=== PATIENT | male | born 1955 | race Caucasian/White ===

== ENCOUNTER → 2017-03-15 | Outpatient (CLI) | payer OTHER ==
[~2017-03-15] MED LIST: ALBU90OI INH; AMLO10 PO; BUSP10 PO; CIPR500 PO; CLON.2 PO; COMBIVENT RESPIM4 GM INH; Capsaicin60 GM TOP; Citalopram HBr40 MG PO; DICLOFENAC SOD100 G1 TOP; DULERA 100 MCG/13 GM INH; HYDACE5 PO; HYDCHL25 PO; Hair, Skin & N1 EACH PO; IBUP400 PO; IBUP600 PO; LISI20 PO; MELO7.5 PO; METO50 PO; MIRT30 PO; NAPR500ERA PO; NICO21TP TOP; PANT40 PO; PRAZ1 PO; PRED10 PO; PRED20 PO; Prinivil10 MG PO; TUDORZA PRESS400 MCG INH; ZESTORETIC 20-121 EA PO
== END | disposition home or self-care (01) ==
LOC: LAB SHORT 13:33 → LAB 13:33
DX: L02.91 Cutaneous abscess, unspecified (principal)
CPT/HCPCS: 87070; 87075; 87076; 87185; 87205

== ENCOUNTER 2017-05-27 17:55 | Inpatient (IN) | payer OTHER ==
[~2017-05-27] VITALS: Ht 182.9 cm; Wt 93.0 kg
[~2017-05-27 17:55] MED LIST changes: -ALBU90OI INH; -AMLO10 PO; -BUSP10 PO; -CLON.2 PO; -COMBIVENT RESPIM4 GM INH; -Capsaicin60 GM TOP; -Citalopram HBr40 MG PO; -DICLOFENAC SOD100 G1 TOP; -DULERA 100 MCG/13 GM INH; -HYDCHL25 PO; -Hair, Skin & N1 EACH PO; -IBUP400 PO; -IBUP600 PO; -LISI20 PO; -MELO7.5 PO; -METO50 PO; -MIRT30 PO; -NAPR500ERA PO; -NICO21TP TOP; -PANT40 PO; -PRAZ1 PO; -PRED10 PO; -PRED20 PO; -Prinivil10 MG PO; -TUDORZA PRESS400 MCG INH; -ZESTORETIC 20-121 EA PO
[2017-05-27] MEDS ORDERED: TUDORZA PRESS400 MCG INH (18:09)
[2017-05-27] MEDS ORDERED: Citalopram HBr40 MG PO (18:09)
[2017-05-27] MEDS ORDERED: BUSP10 PO (18:09)
[2017-05-27] MEDS ORDERED: DICLOFENAC SOD100 G1 TOP (18:10)
[2017-05-27] MEDS ORDERED: MELO7.5 PO (18:10)
[2017-05-27] MEDS ORDERED: ZESTORETIC 20-121 EA PO (18:10)
[2017-05-27 18:42] LABS: BASOPHILS ABSOLUTE AUTO 0.05 K/mm3 (0.00-0.23); BASOPHILS PERCENT AUTO 1 % (0-2); EOSINOPHILS ABSOLUTE AUTO 0.09 K/mm3 (0.00-0.68); EOSINOPHILS PERCENT AUTO 1 % (0-6); Hematocrit 41.7 % (37.0-53.0); Hemoglobin 14.4 g/dL (13.5-17.5); IMMATURE GRAN ABSOLUTE AUTO 0.04 K/mm3 (0.00-0.10); IMMATURE GRAN PERCENT AUTO 1 % (0-1); LYMPHOCYTES PERCENT AUTO 12 % (21-46); MONOCYTES ABSOLUTE AUTO 1.04 K/mm3 (0.16-1.47); MONOCYTES PERCENT AUTO 12 % (4-13); Mean Corpuscular HGB 31.3 pg (26.0-34.0); Mean Corpuscular HGB Conc 34.5 g/dL (31.5-36.5); Mean Corpuscular Volume 91 fL (80-100); Mean Platelet Volume 8.8 fL (9.1-12.4); NEUTROPHILS ABSOLUTE AUTO 6.27 K/mm3 (1.96-9.15); NEUTROPHILS PERCENT AUTO 74 % (41-73); Platelet Count 292 K/mm3 (150-400); RDW Coefficient Variation 11.5 % (11.7-14.2); White Blood Cell Count 8.49 K/mm3 (4.00-11.30)
[2017-05-27 18:57] LABS: Troponin I 0.037 ng/mL (0.000-0.040)
[2017-05-27 19:06] LABS: Alanine Aminotransfer (ALT/SGP 184 U/L (12-78); Albumin, Blood 3.4 g/dL (3.4-5.0); Albumin/Globulin Ratio 1.1 (0.8-1.8); Alk Phos 101 U/L (50-136); Anion Gap 9 mmol/L (6-16); Aspartate Aminotrans (AST/SGOT 134 U/L (12-37); Bilirubin, Total 0.6 mg/dL (0.1-1.0); Blood Urea Nitrogen 11 mg/dL (8-24); Bun/Creatinine Ratio 16.6 (12.0-20.0); CO2, Blood 29 mmol/L (21-32); Calcium, Blood 7.9 mg/dL (8.5-10.1); Chloride, Blood 80 mmol/L (98-108); Creatinine, Blood 0.66 mg/dL (0.60-1.20); Glomerular Filtration Rate >60 (60-); Glucose, Blood 87 mg/dL (70-99); Potassium, Blood 4.1 mmol/L (3.5-5.5); Sodium, Blood 118 mmol/L (136-145); Total Protein, Blood 6.4 g/dL (6.4-8.2)
[2017-05-27 19:32] LABS: PCO2 Arterial 50.5 mmHg (35-45); pH Blood Arterial 7.44 (7.35-7.45)
[2017-05-27 19:33] LABS: Ethanol (Alcohol), Blood, Med 22 mg/dL
[2017-05-28 01:04] LABS: Anion Gap 4 mmol/L (6-16); Blood Urea Nitrogen 13 mg/dL (8-24); Bun/Creatinine Ratio 19.8 (12.0-20.0); CO2, Blood 35 mmol/L (21-32); Calcium, Blood 8.1 mg/dL (8.5-10.1); Chloride, Blood 82 mmol/L (98-108); Creatinine, Blood 0.66 mg/dL (0.60-1.20); Glomerular Filtration Rate >60 (60-); Glucose, Blood 93 mg/dL (70-99); Potassium, Blood 4.3 mmol/L (3.5-5.5); Sodium, Blood 121 mmol/L (136-145)
[2017-05-28 05:45] LABS: Anion Gap 5 mmol/L (6-16); Blood Urea Nitrogen 13 mg/dL (8-24); Bun/Creatinine Ratio 22.8 (12.0-20.0); CO2, Blood 33 mmol/L (21-32); Calcium, Blood 8.1 mg/dL (8.5-10.1); Chloride, Blood 82 mmol/L (98-108); Creatinine, Blood 0.57 mg/dL (0.60-1.20); Glomerular Filtration Rate >60 (60-); Glucose, Blood 138 mg/dL (70-99); Magnesium, Blood 1.9 mg/dL (1.6-2.4); Potassium, Blood 3.9 mmol/L (3.5-5.5); Sodium, Blood 120 mmol/L (136-145)
[2017-05-28 13:25] LABS: Anion Gap 6 mmol/L (6-16); Blood Urea Nitrogen 10 mg/dL (8-24); Bun/Creatinine Ratio 16.6 (12.0-20.0); CO2, Blood 33 mmol/L (21-32); Calcium, Blood 8.6 mg/dL (8.5-10.1); Chloride, Blood 80 mmol/L (98-108); Glomerular Filtration Rate >60 (60-); Glucose, Blood 115 mg/dL (70-99); Potassium, Blood 4.1 mmol/L (3.5-5.5); Sodium, Blood 119 mmol/L (136-145)
[2017-05-28 19:07] LABS: Anion Gap 9 mmol/L (6-16); Blood Urea Nitrogen 12 mg/dL (8-24); Bun/Creatinine Ratio 16.6 (12.0-20.0); CO2, Blood 33 mmol/L (21-32); Calcium, Blood 8.8 mg/dL (8.5-10.1); Chloride, Blood 78 mmol/L (98-108); Creatinine, Blood 0.72 mg/dL (0.60-1.20); Glomerular Filtration Rate >60 (60-); Glucose, Blood 214 mg/dL (70-99); Potassium, Blood 4.1 mmol/L (3.5-5.5); Sodium, Blood 120 mmol/L (136-145)
[2017-05-29 05:09] LABS: Anion Gap 5 mmol/L (6-16); Blood Urea Nitrogen 14 mg/dL (8-24); Bun/Creatinine Ratio 19.5 (12.0-20.0); CO2, Blood 37 mmol/L (21-32); Calcium, Blood 8.7 mg/dL (8.5-10.1); Chloride, Blood 82 mmol/L (98-108); Creatinine, Blood 0.72 mg/dL (0.60-1.20); Glomerular Filtration Rate >60 (60-); Glucose, Blood 111 mg/dL (70-99); Potassium, Blood 3.9 mmol/L (3.5-5.5); Sodium, Blood 124 mmol/L (136-145)
[2017-05-29] MEDS ORDERED: AMLO10 PO (10:22)
[2017-05-29] MEDS ORDERED: CLON.2 PO (10:23)
[2017-05-29] MEDS ORDERED: LISI20 PO (10:24)
[2017-05-29] MEDS ORDERED: Hair, Skin & N1 EACH PO (10:24)
[2017-05-29] MEDS ORDERED: NICO21TP TOP (10:25)
[2017-05-29] MEDS ORDERED: PRED10 PO (10:27)
[2017-05-29] MEDS ORDERED: ALBU90OI INH (10:28)
[2017-05-29] MEDS ORDERED: DULERA 100 MCG/13 GM INH (10:29)
[2017-09-12] MEDS ORDERED: CLON.2 PO (14:41)
[2017-09-12] MEDS ORDERED: AMLO10 PO (14:41)
[2017-09-12] MEDS ORDERED: COMBIVENT RESPIM4 GM INH (16:06)
== END 2017-05-29 10:55 | disposition home or self-care (01) | DRG 189 ==
LOC: ER 17:55 → MEDS 19:39 → ER 20:20 → ENPENDDIS 05-29 10:00 → MEDS 05-29 10:55
PROVIDERS: Internal Medicine; Physician Assistant
DX: J96.01 Acute respiratory failure with hypoxia (principal); E87.1 Hypo-osmolality and hyponatremia; F10.239 Alcohol dependence with withdrawal, unspecified; J44.1 Chronic obstructive pulmonary disease with (acute) exacerbation; M84.464A Pathological fracture, left fibula, initial encounter for fracture; I10 Essential (primary) hypertension; K70.30 Alcoholic cirrhosis of liver without ascites; I16.0 Hypertensive urgency; F41.9 Anxiety disorder, unspecified; F17.210 Nicotine dependence, cigarettes, uncomplicated; M84.46 Pathological fracture, tibia and fibula; F41.0 Panic disorder [episodic paroxysmal anxiety]
CPT/HCPCS: 36415; 36600; 71046; 73564; 73610; 80048; 80053; 81000; 82140; 82803; 83735; 83880; 83930; 84484; 85025; 93005; 93010; 94640; 94760; 94762; 99285; G0480; J0360; J1650; J2060; J7030

== ENCOUNTER → 2017-06-07 | Outpatient (CLI) | payer OTHER ==
[~2017-06-07] MED LIST changes: +ALBU90OI INH; +AMLO10 PO; +BUSP10 PO; +CLON.2 PO; +Citalopram HBr40 MG PO; +DICLOFENAC SOD100 G1 TOP; +DULERA 100 MCG/13 GM INH; +Hair, Skin & N1 EACH PO; +LISI20 PO; +MELO7.5 PO; +NICO21TP TOP; +PRED10 PO; +TUDORZA PRESS400 MCG INH; +ZESTORETIC 20-121 EA PO
[2017-06-07 18:09] LABS: BASOPHILS ABSOLUTE AUTO 0.14 K/mm3 (0.00-0.23); BASOPHILS PERCENT AUTO 1 % (0-2); EOSINOPHILS ABSOLUTE AUTO 0.08 K/mm3 (0.00-0.68); EOSINOPHILS PERCENT AUTO 1 % (0-6); Hematocrit 52.3 % (37.0-53.0); Hemoglobin 17.4 g/dL (13.5-17.5); IMMATURE GRAN ABSOLUTE AUTO 0.09 K/mm3 (0.00-0.10); IMMATURE GRAN PERCENT AUTO 1 % (0-1); LYMPHOCYTES ABSOLUTE AUTO 0.92 K/mm3 (0.84-5.20); LYMPHOCYTES PERCENT AUTO 9 % (21-46); MONOCYTES ABSOLUTE AUTO 1.04 K/mm3 (0.16-1.47); MONOCYTES PERCENT AUTO 10 % (4-13); Mean Corpuscular HGB 31.6 pg (26.0-34.0); Mean Corpuscular HGB Conc 33.3 g/dL (31.5-36.5); Mean Platelet Volume 9.6 fL (9.1-12.4); NEUTROPHILS ABSOLUTE AUTO 7.97 K/mm3 (1.96-9.15); NEUTROPHILS PERCENT AUTO 78 % (41-73); Platelet Count 433 K/mm3 (150-400); RDW Coefficient Variation 11.9 % (11.7-14.2); White Blood Cell Count 10.24 K/mm3 (4.00-11.30)
[2017-06-07 18:16] LABS: Mean Corpuscular Volume 95 fL (80-100)
[2017-06-07 18:44] LABS: Alanine Aminotransfer (ALT/SGP 91 U/L (12-78); Albumin, Blood 4.1 g/dL (3.4-5.0); Albumin/Globulin Ratio 1.3 (0.8-1.8); Alk Phos 77 U/L (50-136); Anion Gap 6 mmol/L (6-16); Aspartate Aminotrans (AST/SGOT 40 U/L (12-37); Bilirubin, Total 0.5 mg/dL (0.1-1.0); Blood Urea Nitrogen 22 mg/dL (8-24); Bun/Creatinine Ratio 26.6 (12.0-20.0); CO2, Blood 34 mmol/L (21-32); Calcium, Blood 9.2 mg/dL (8.5-10.1); Chloride, Blood 89 mmol/L (98-108); Creatinine, Blood 0.83 mg/dL (0.60-1.20); Globulin, Blood 3.1 g/dL (2.2-4.0); Glomerular Filtration Rate >60 (60-); Glucose, Blood 120 mg/dL (70-99); Potassium, Blood 5.5 mmol/L (3.5-5.5); Sodium, Blood 129 mmol/L (136-145); Total Protein, Blood 7.2 g/dL (6.4-8.2)
== END ==
LOC: LAB 09:35 → LAB SHORT 09:35
PROVIDERS: Nurse Practitioner Family
DX: E78.5 Hyperlipidemia, unspecified (principal)
CPT/HCPCS: 80053; 85025

== ENCOUNTER 2017-08-25 04:03 | Inpatient (IN) | payer OTHER ==
[~2017-08-25] VITALS: Ht 182.9 cm; Wt 89.7 kg
[2017-08-25 04:25] LABS: Calcium, Ionized (POC) 1.04 mmol/L (1.10-1.46); Chloride (POC) 91 mmol/L (98-108); Creatinine (POC) 0.7 mg/dL (0.8-1.3); Glucose (ISTAT POC) 124 mg/dL (70-99); Hemoglobin (POC) 13.6 g/dL (13.5-17.5); Potassium (POC) 4.5 mmol/L (3.5-5.5); Sodium (POC) 134 mmol/L (135-148); Total CO2 (POC) 33 mmol/L (21-32)
[2017-08-25 04:27] LABS: BASOPHILS ABSOLUTE AUTO 0.08 K/mm3 (0.00-0.23); BASOPHILS PERCENT AUTO 1 % (0-2); EOSINOPHILS PERCENT AUTO 1 % (0-6); Hematocrit 38.9 % (37.0-53.0); Hemoglobin 13.2 g/dL (13.5-17.5); IMMATURE GRAN ABSOLUTE AUTO 0.06 K/mm3 (0.00-0.10); IMMATURE GRAN PERCENT AUTO 1 % (0-1); LYMPHOCYTES ABSOLUTE AUTO 1.19 K/mm3 (0.84-5.20); LYMPHOCYTES PERCENT AUTO 10 % (21-46); MONOCYTES PERCENT AUTO 13 % (4-13); Mean Corpuscular HGB 31.6 pg (26.0-34.0); Mean Corpuscular HGB Conc 33.9 g/dL (31.5-36.5); Mean Corpuscular Volume 93 fL (80-100); Mean Platelet Volume 9.2 fL (9.1-12.4); NEUTROPHILS ABSOLUTE AUTO 9.41 K/mm3 (1.96-9.15); NEUTROPHILS PERCENT AUTO 76 % (41-73); Platelet Count 248 K/mm3 (150-400); RDW Coefficient Variation 14.6 % (11.7-14.2); RDW Standard Deviation 49.8 fL (35.1-46.3); Red Blood Cell Count 4.18 M/mm3 (4.30-5.90); White Blood Cell Count 12.44 K/mm3 (4.00-11.30)
[2017-08-25 04:43] LABS: International Normalized Ratio 1.1; Prothrombin Time Results 11.3 Sec (9.7-11.5)
[2017-08-25 04:47] LABS: Alanine Aminotransfer (ALT/SGP 50 U/L (12-78); Albumin, Blood 3.3 g/dL (3.4-5.0); Albumin/Globulin Ratio 1.2 (0.8-1.8); Alk Phos 69 U/L (50-136); Anion Gap 5 mmol/L (6-16); Aspartate Aminotrans (AST/SGOT 37 U/L (12-37); Bilirubin, Total 0.6 mg/dL (0.1-1.0); Blood Urea Nitrogen 14 mg/dL (8-24); Bun/Creatinine Ratio 20.8 (12.0-20.0); CO2, Blood 35 mmol/L (21-32); Calcium, Blood 8.3 mg/dL (8.5-10.1); Chloride, Blood 96 mmol/L (98-108); Creatinine, Blood 0.67 mg/dL (0.60-1.20); Globulin, Blood 2.8 g/dL (2.2-4.0); Glomerular Filtration Rate >60 (60-); Glucose, Blood 123 mg/dL (70-99); Potassium, Blood 4.4 mmol/L (3.5-5.5); Sodium, Blood 136 mmol/L (136-145); Total Protein, Blood 6.1 g/dL (6.4-8.2)
[2017-08-25] MEDS ORDERED: PRAZ1 PO (05:51)
[2017-08-25] MEDS ORDERED: NAPR500ERA PO (06:43)
[2017-08-25] MEDS ORDERED: IBUP400 PO (06:44)
[2017-08-25 06:56] LABS: Hematocrit 38.2 % (37.0-53.0); Hemoglobin 13.1 g/dL (13.5-17.5)
[2017-08-25] MEDS ORDERED: TUDORZA PRESS400 MCG INH (07:32)
[2017-08-25] MEDS ORDERED: ALBU90OI INH (07:34)
[2017-08-25 12:36] LABS: Hematocrit 39.3 % (37.0-53.0); Hemoglobin 13.2 g/dL (13.5-17.5)
[2017-08-25 18:35] LABS: Hematocrit 37.7 % (37.0-53.0); Hemoglobin 12.9 g/dL (13.5-17.5)
[2017-08-26 03:32] LABS: BASOPHILS ABSOLUTE AUTO 0.07 K/mm3 (0.00-0.23); BASOPHILS PERCENT AUTO 1 % (0-2); EOSINOPHILS ABSOLUTE AUTO 0.23 K/mm3 (0.00-0.68); EOSINOPHILS PERCENT AUTO 2 % (0-6); Hemoglobin 13.5 g/dL (13.5-17.5); IMMATURE GRAN ABSOLUTE AUTO 0.03 K/mm3 (0.00-0.10); IMMATURE GRAN PERCENT AUTO 0 % (0-1); LYMPHOCYTES ABSOLUTE AUTO 1.32 K/mm3 (0.84-5.20); LYMPHOCYTES PERCENT AUTO 12 % (21-46); MONOCYTES ABSOLUTE AUTO 1.29 K/mm3 (0.16-1.47); MONOCYTES PERCENT AUTO 12 % (4-13); Mean Corpuscular HGB 31.8 pg (26.0-34.0); Mean Corpuscular HGB Conc 33.8 g/dL (31.5-36.5); Mean Corpuscular Volume 94 fL (80-100); Mean Platelet Volume 9.1 fL (9.1-12.4); NEUTROPHILS ABSOLUTE AUTO 7.88 K/mm3 (1.96-9.15); NEUTROPHILS PERCENT AUTO 73 % (41-73); Platelet Count 227 K/mm3 (150-400); RDW Coefficient Variation 14.8 % (11.7-14.2); RDW Standard Deviation 51.5 fL (35.1-46.3); Red Blood Cell Count 4.24 M/mm3 (4.30-5.90); White Blood Cell Count 10.82 K/mm3 (4.00-11.30)
[2017-08-26 03:51] LABS: Anion Gap 7 mmol/L (6-16); Blood Urea Nitrogen 4 mg/dL (8-24); Bun/Creatinine Ratio 8.2 (12.0-20.0); CO2, Blood 33 mmol/L (21-32); Calcium, Blood 8.1 mg/dL (8.5-10.1); Chloride, Blood 94 mmol/L (98-108); Creatinine, Blood 0.49 mg/dL (0.60-1.20); Glomerular Filtration Rate >60 (60-); Glucose, Blood 99 mg/dL (70-99); Potassium, Blood 3.5 mmol/L (3.5-5.5); Sodium, Blood 134 mmol/L (136-145)
[2017-08-27 03:50] LABS: BASOPHILS ABSOLUTE AUTO 0.07 K/mm3 (0.00-0.23); BASOPHILS PERCENT AUTO 1 % (0-2); EOSINOPHILS ABSOLUTE AUTO 0.35 K/mm3 (0.00-0.68); EOSINOPHILS PERCENT AUTO 3 % (0-6); Hematocrit 37.7 % (37.0-53.0); Hemoglobin 12.7 g/dL (13.5-17.5); IMMATURE GRAN ABSOLUTE AUTO 0.05 K/mm3 (0.00-0.10); IMMATURE GRAN PERCENT AUTO 0 % (0-1); LYMPHOCYTES ABSOLUTE AUTO 1.37 K/mm3 (0.84-5.20); LYMPHOCYTES PERCENT AUTO 12 % (21-46); MONOCYTES ABSOLUTE AUTO 1.46 K/mm3 (0.16-1.47); MONOCYTES PERCENT AUTO 12 % (4-13); Mean Corpuscular HGB 32.2 pg (26.0-34.0); Mean Corpuscular HGB Conc 33.7 g/dL (31.5-36.5); Mean Corpuscular Volume 95 fL (80-100); Mean Platelet Volume 9.4 fL (9.1-12.4); NEUTROPHILS ABSOLUTE AUTO 8.63 K/mm3 (1.96-9.15); NEUTROPHILS PERCENT AUTO 72 % (41-73); Platelet Count 239 K/mm3 (150-400); RDW Coefficient Variation 14.8 % (11.7-14.2); RDW Standard Deviation 52.3 fL (35.1-46.3); Red Blood Cell Count 3.95 M/mm3 (4.30-5.90); White Blood Cell Count 11.93 K/mm3 (4.00-11.30)
[2017-08-27 04:08] LABS: Anion Gap 7 mmol/L (6-16); Blood Urea Nitrogen 14 mg/dL (8-24); Bun/Creatinine Ratio 17.4 (12.0-20.0); CO2, Blood 31 mmol/L (21-32); Calcium, Blood 8.4 mg/dL (8.5-10.1); Chloride, Blood 97 mmol/L (98-108); Glomerular Filtration Rate >60 (60-); Glucose, Blood 113 mg/dL (70-99); Sodium, Blood 135 mmol/L (136-145)
[2017-08-28] MEDS ORDERED: IBUP600 PO (09:01)
[2017-08-28] MEDS ORDERED: Capsaicin60 GM TOP (09:02)
[2017-08-28] MEDS ORDERED: METO50 PO (09:03)
[2017-08-28] MEDS ORDERED: Prinivil10 MG PO (09:03)
[2017-08-28] MEDS ORDERED: DULERA 100 MCG/13 GM INH (09:03)
[2017-08-28] MEDS ORDERED: HYDCHL25 PO (09:03)
[2017-08-28] MEDS ORDERED: PANT40 PO (09:04)
== END 2017-08-28 10:10 | disposition home or self-care (01) | DRG 378 ==
LOC: ER 04:03 → ERHOLD 06:06 → ICUW 06:06 → MEDS 08-27 12:16 → ENPENDDIS 08-28 08:41 → MEDS 08-28 10:10
PROVIDERS: Emergency Medicine; Internal Medicine; Internal Medicine Gastroenterology
PROC: 0DBN8ZZ Excision of Sigmoid Colon, Via Natural or Artificial Opening Endoscopic (ICD-10-PCS; principal; 2017-08-26 15:00)
DX: K57.31 Diverticulosis of large intestine without perforation or abscess with bleeding (principal); E87.1 Hypo-osmolality and hyponatremia; F10.239 Alcohol dependence with withdrawal, unspecified; Q43.9 Congenital malformation of intestine, unspecified; K63.5 Polyp of colon; D64.9 Anemia, unspecified; J44.9 Chronic obstructive pulmonary disease, unspecified; I16.0 Hypertensive urgency; I10 Essential (primary) hypertension; K29.70 Gastritis, unspecified, without bleeding; M25.472 Effusion, left ankle; F51.5 Nightmare disorder; F41.0 Panic disorder [episodic paroxysmal anxiety]; F17.200 Nicotine dependence, unspecified, uncomplicated; Z79.899 Other long term (current) drug therapy; S82.832D Other fracture of upper and lower end of left fibula, subsequent encounter for closed fracture with routine healing; Z59.0 Homelessness
CPT/HCPCS: 29515; 36415; 73610; 74177; 80047; 80048; 80053; 83690; 85014; 85018; 85025; 85027; 85610; 85730; 86850; 86900; 86901; 88305; 93005; 93010; 94640; 94760; 96365; 96375; 99285; C9113; J0360; J0744; J1980; J2060; J2250; J3010; J3411; J3475; J7030; J7042; J7050; J7120; Q9967

== ENCOUNTER 2017-11-01 15:39 | Observation (INO) | payer OTHER ==
[~2017-11-01] VITALS: Ht 182.9 cm; Wt 86.2 kg
[~2017-11-01 15:39] MED LIST changes: +COMBIVENT RESPIM4 GM INH; +Capsaicin60 GM TOP; +HYDCHL25 PO; +IBUP400 PO; +IBUP600 PO; +METO50 PO; +NAPR500ERA PO; +PANT40 PO; +PRAZ1 PO; +Prinivil10 MG PO
[2017-11-01 16:09] LABS: BASOPHILS ABSOLUTE AUTO 0.09 K/mm3 (0.00-0.23); BASOPHILS PERCENT AUTO 1 % (0-2); EOSINOPHILS ABSOLUTE AUTO 0.08 K/mm3 (0.00-0.68); EOSINOPHILS PERCENT AUTO 1 % (0-6); Hematocrit 43.9 % (37.0-53.0); Hemoglobin 14.6 g/dL (13.5-17.5); IMMATURE GRAN ABSOLUTE AUTO 0.03 K/mm3 (0.00-0.10); IMMATURE GRAN PERCENT AUTO 0 % (0-1); LYMPHOCYTES ABSOLUTE AUTO 1.33 K/mm3 (0.84-5.20); LYMPHOCYTES PERCENT AUTO 14 % (21-46); MONOCYTES ABSOLUTE AUTO 1.37 K/mm3 (0.16-1.47); MONOCYTES PERCENT AUTO 14 % (4-13); Mean Corpuscular HGB 29.6 pg (26.0-34.0); Mean Corpuscular HGB Conc 33.3 g/dL (31.5-36.5); Mean Corpuscular Volume 89 fL (80-100); Mean Platelet Volume 9.4 fL (9.1-12.4); NEUTROPHILS ABSOLUTE AUTO 6.81 K/mm3 (1.96-9.15); NEUTROPHILS PERCENT AUTO 70 % (41-73); Platelet Count 286 K/mm3 (150-400); RDW Coefficient Variation 13.2 % (11.7-14.2); Red Blood Cell Count 4.93 M/mm3 (4.30-5.90); White Blood Cell Count 9.71 K/mm3 (4.00-11.30)
[2017-11-01 16:45] LABS: Albumin, Blood 3.5 g/dL (3.4-5.0); Albumin/Globulin Ratio 1.1 (0.8-1.8); Bilirubin, Total 0.5 mg/dL (0.1-1.0); Bun/Creatinine Ratio 12.3 (12.0-20.0); Calcium, Blood 8.5 mg/dL (8.5-10.1); Creatinine, Blood 1.54 mg/dL (0.60-1.20); Globulin, Blood 3.1 g/dL (2.2-4.0); Potassium, Blood 4.1 mmol/L (3.5-5.5); Total Protein, Blood 6.6 g/dL (6.4-8.2)
[2017-11-02 05:40] LABS: BASOPHILS ABSOLUTE AUTO 0.01 K/mm3 (0.00-0.23); BASOPHILS PERCENT AUTO 0 % (0-2); EOSINOPHILS PERCENT AUTO 0 % (0-6); Hematocrit 48.6 % (37.0-53.0); Hemoglobin 15.9 g/dL (13.5-17.5); IMMATURE GRAN ABSOLUTE AUTO 0.02 K/mm3 (0.00-0.10); IMMATURE GRAN PERCENT AUTO 0 % (0-1); LYMPHOCYTES ABSOLUTE AUTO 0.33 K/mm3 (0.84-5.20); LYMPHOCYTES PERCENT AUTO 6 % (21-46); MONOCYTES ABSOLUTE AUTO 0.13 K/mm3 (0.16-1.47); MONOCYTES PERCENT AUTO 2 % (4-13); Mean Corpuscular HGB 28.7 pg (26.0-34.0); Mean Corpuscular HGB Conc 32.7 g/dL (31.5-36.5); Mean Corpuscular Volume 88 fL (80-100); Mean Platelet Volume 9.8 fL (9.1-12.4); NEUTROPHILS ABSOLUTE AUTO 5.45 K/mm3 (1.96-9.15); NEUTROPHILS PERCENT AUTO 92 % (41-73); Platelet Count 295 K/mm3 (150-400); RDW Coefficient Variation 13.4 % (11.7-14.2); RDW Standard Deviation 43.3 fL (35.1-46.3); Red Blood Cell Count 5.54 M/mm3 (4.30-5.90); White Blood Cell Count 5.94 K/mm3 (4.00-11.30)
[2017-11-02 06:17] LABS: Magnesium, Blood 2.1 mg/dL (1.6-2.4)
[2017-11-02 06:33] LABS: Alanine Aminotransfer (ALT/SGP 37 U/L (12-78); Albumin, Blood 3.6 g/dL (3.4-5.0); Alk Phos 84 U/L (50-136); Anion Gap 9 mmol/L (6-16); Aspartate Aminotrans (AST/SGOT 22 U/L (12-37); Bilirubin, Total 0.4 mg/dL (0.1-1.0); Blood Urea Nitrogen 20 mg/dL (8-24); Bun/Creatinine Ratio 24.9 (12.0-20.0); CO2, Blood 29 mmol/L (21-32); Calcium, Blood 8.9 mg/dL (8.5-10.1); Chloride, Blood 97 mmol/L (98-108); Globulin, Blood 3.6 g/dL (2.2-4.0); Glomerular Filtration Rate >60 (60-); Glucose, Blood 165 mg/dL (70-99); Potassium, Blood 4.5 mmol/L (3.5-5.5); Sodium, Blood 135 mmol/L (136-145); Thyroid Stimulating Hormone 0.207 uIU/mL (0.360-4.800); Total Protein, Blood 7.2 g/dL (6.4-8.2)
[2017-11-02] MEDS ORDERED: MIRT30 PO (15:06)
[2017-11-02] MEDS ORDERED: PRED20 PO (15:07)
== END 2017-11-02 15:22 | disposition home or self-care (01) ==
LOC: ER 15:39 → MEDS 15:40 → ER 18:10 → MEDS 18:10
PROVIDERS: Internal Medicine; Physician Assistant
DX: J44.1 Chronic obstructive pulmonary disease with (acute) exacerbation (principal); N17.9 Acute kidney failure, unspecified; I10 Essential (primary) hypertension; F17.210 Nicotine dependence, cigarettes, uncomplicated; E87.1 Hypo-osmolality and hyponatremia; E86.0 Dehydration; Z59.0 Homelessness; Z79.899 Other long term (current) drug therapy
CPT/HCPCS: 36415; 71046; 80053; 83735; 84443; 84484; 85025; 93005; 93010; 94640; 94760; 96361; 96374; 99285-25; J2930; J7030

== ENCOUNTER 2018-03-14 16:42 | Inpatient (IN) | payer OTHER ==
[~2018-03-14] VITALS: Ht 182.9 cm; Wt 110.3 kg
[~2018-03-14 16:42] MED LIST changes: +MIRT30 PO; +PRED20 PO
[2018-03-14 17:24] LABS: BASOPHILS ABSOLUTE AUTO 0.06 K/mm3 (0.00-0.23); BASOPHILS PERCENT AUTO 1 % (0-2); EOSINOPHILS ABSOLUTE AUTO 0.06 K/mm3 (0.00-0.68); EOSINOPHILS PERCENT AUTO 1 % (0-6); Hematocrit 42.4 % (37.0-53.0); Hemoglobin 13.5 g/dL (13.5-17.5); IMMATURE GRAN ABSOLUTE AUTO 0.23 K/mm3 (0.00-0.10); IMMATURE GRAN PERCENT AUTO 2 % (0-1); LYMPHOCYTES ABSOLUTE AUTO 1.76 K/mm3 (0.84-5.20); LYMPHOCYTES PERCENT AUTO 14 % (21-46); MONOCYTES ABSOLUTE AUTO 1.41 K/mm3 (0.16-1.47); MONOCYTES PERCENT AUTO 11 % (4-13); Mean Corpuscular HGB 28.2 pg (26.0-34.0); Mean Corpuscular HGB Conc 31.8 g/dL (31.5-36.5); Mean Corpuscular Volume 89 fL (80-100); Mean Platelet Volume 9.3 fL (9.1-12.4); NEUTROPHILS ABSOLUTE AUTO 9.49 K/mm3 (1.96-9.15); NEUTROPHILS PERCENT AUTO 73 % (41-73); NRBC ABSOLUTE 0.06 K/mm3 (0.00-0.02); NRBC Auto 0.5 /100 WBC (0.0-0.2); Platelet Count 409 K/mm3 (150-400); RDW Standard Deviation 45.1 fL (35.1-46.3); Red Blood Cell Count 4.79 M/mm3 (4.30-5.90); White Blood Cell Count 13.01 K/mm3 (4.00-11.30)
[2018-03-14 17:26] LABS: PCO2 Arterial 61.4 mmHg (35-45); PO2 Arterial 71.6 mmHg (80-100); pH Blood Arterial 7.36 (7.35-7.45)
[2018-03-14 17:56] LABS: Alanine Aminotransfer (ALT/SGP 68 U/L (12-78); Albumin, Blood 3.2 g/dL (3.4-5.0); Albumin/Globulin Ratio 0.9 (0.8-1.8); Alk Phos 95 U/L (50-136); Anion Gap 5 mmol/L (6-16); Aspartate Aminotrans (AST/SGOT 48 U/L (12-37); Bilirubin, Total 0.3 mg/dL (0.1-1.0); Blood Urea Nitrogen 15 mg/dL (8-24); Bun/Creatinine Ratio 23.2 (12.0-20.0); CO2, Blood 34 mmol/L (21-32); Calcium, Blood 7.9 mg/dL (8.5-10.1); Chloride, Blood 79 mmol/L (98-108); Creatinine, Blood 0.65 mg/dL (0.60-1.20); Globulin, Blood 3.7 g/dL (2.2-4.0); Glomerular Filtration Rate >60 (60-); Glucose, Blood 81 mg/dL (70-99); Sodium, Blood 118 mmol/L (136-145); Total Protein, Blood 6.9 g/dL (6.4-8.2)
[2018-03-14 18:09] LABS: PCO2 Arterial 59.5 mmHg (35-45); PO2 Arterial 47.1 mmHg (80-100); pH Blood Arterial 7.38 (7.35-7.45)
--- NOTE | 2018-03-15 03:52 | NUR ---
PT COUGHING PT DEVELOPED WET COUGH APPROX 3 HOURS AGO. PT WAS OFFERED BREATHING TX PER EMAR. PT REFUSED. COUGH PERSISTED AND PT AGAIN OFFERED BREATHING TX. AGAIN REFUSED. PT WAS MEDICATED FOR COUGH PER EMAR. RT IN TO SEE PT AND OFFERED BREATHING TX FOR WHEEZES. PT AGAIN REFUSED BREATHING TX. PT ON VENTI MASK AT 45% W/ SATS BETWEEN 88-92%. COUGH IS PRODUCTIVE WITH THIN WHITE MUCOUS.
[2018-03-15 04:11] LABS: BASOPHILS ABSOLUTE AUTO 0.06 K/mm3 (0.00-0.23); BASOPHILS PERCENT AUTO 1 % (0-2); EOSINOPHILS PERCENT AUTO 0 % (0-6); Hematocrit 44.6 % (37.0-53.0); Hemoglobin 13.8 g/dL (13.5-17.5); IMMATURE GRAN ABSOLUTE AUTO 0.42 K/mm3 (0.00-0.10); IMMATURE GRAN PERCENT AUTO 4 % (0-1); LYMPHOCYTES ABSOLUTE AUTO 0.58 K/mm3 (0.84-5.20); LYMPHOCYTES PERCENT AUTO 5 % (21-46); MONOCYTES ABSOLUTE AUTO 0.17 K/mm3 (0.16-1.47); MONOCYTES PERCENT AUTO 2 % (4-13); Mean Corpuscular HGB 27.7 pg (26.0-34.0); Mean Corpuscular HGB Conc 30.9 g/dL (31.5-36.5); Mean Corpuscular Volume 90 fL (80-100); Mean Platelet Volume 9.4 fL (9.1-12.4); NEUTROPHILS ABSOLUTE AUTO 10.45 K/mm3 (1.96-9.15); NEUTROPHILS PERCENT AUTO 89 % (41-73); NRBC ABSOLUTE 0.05 K/mm3 (0.00-0.02); NRBC Auto 0.4 /100 WBC (0.0-0.2); Platelet Count 443 K/mm3 (150-400); RDW Coefficient Variation 14.1 % (11.7-14.2); Red Blood Cell Count 4.98 M/mm3 (4.30-5.90); White Blood Cell Count 11.68 K/mm3 (4.00-11.30)
[2018-03-15 04:27] LABS: Anion Gap 4 mmol/L (6-16); Blood Urea Nitrogen 15 mg/dL (8-24); Bun/Creatinine Ratio 23.8 (12.0-20.0); CO2, Blood 33 mmol/L (21-32); Calcium, Blood 7.8 mg/dL (8.5-10.1); Chloride, Blood 85 mmol/L (98-108); Creatinine, Blood 0.63 mg/dL (0.60-1.20); Glomerular Filtration Rate >60 (60-); Glucose, Blood 142 mg/dL (70-99); Potassium, Blood 5.7 mmol/L (3.5-5.5); Sodium, Blood 122 mmol/L (136-145)
--- NOTE | 2018-03-15 06:39 | NUR ---
SHIFT SUMMARY PT IN ROOM RESTING COMFORTABLY. PT WAKES TO VERBAL STIMULI EASILY. T/O NIGHT PT WAS RESTLESS WITH COUGH AND SOB. PT ARRIVED TO UNIT ON NC AT 3L. T/O SHIFT PT BECAME MORE SOB WITH COPD EXACERBATION. PT DEVELOPED WET PRODUCTIVE COUGH, AND WAS MEDICATED PER EMAR. PT REFUSED BREATHING TREATMENTS OFFERED BY RT. PT MOVED TO VENTI MASK AT 50% O2 D/T MOUTH BREATHING WHILE SLEEPING AND O2 SATS DROPPING. PT NOW SATS 89-92% ON VENTI MASK 50%. DENIES PAIN. RESP EVEN. BED ALARM ON FOR SAFETY, CIWA SCORES 1-2. CALL LIGHT IN REACH.
--- NOTE | 2018-03-15 08:55 | NUR ---
The pt's home medications and inhalers were sent to the pharmacy for safekeeping while he is an inpatient.
--- NOTE | 2018-03-15 10:19 | NUR ---
The pt has frequently been pulling off the ventimask while sleeping. I found him with spo2 of 79% without any oxygen delivery in place. After consulting with Asim Jacob the RT, switched the pt to hi flow nasal cannula at 8 l/min, then 10 l/min to keep spo2 at least 88%. He is awake, alert, and asking for his breakfast now.
--- NOTE | 2018-03-15 11:08 | NUR ---
Echocardiogram completed.
--- NOTE | 2018-03-15 12:53 | NUR ---
The pt has been sleeping off and on this morning, waking to gentle verbal/tactile stimuli. He has been wearing the hi [place] nasal cannula at 8-10 l/min delivery, now maintaining spo2 of greater than 90 as long as it is in his mouth while he sleeps as he sleeps with his mouth open. No complaints of pain or discomfort. Cooperative and appreciative of the care he has received.
--- NOTE | 2018-03-15 13:01 | NUR ---
Assisted from bed to bathroom for toileting. Weak, but denies pain, lightheadedness or dizzyness. Frequent moist productive cough while awake. Swallowing sputum so I did not evaluate its quality. States hungry so assisted to side of bed to eat lunch. Sp02 was 83% on 6 l/min following activity, so increased to 8 l/min. Still no improvement, so increased to 10 l/min and assisted to high Gomez's position
[2018-03-15 13:28] LABS: Anion Gap 4 mmol/L (6-16); Blood Urea Nitrogen 13 mg/dL (8-24); Bun/Creatinine Ratio 21.5 (12.0-20.0); CO2, Blood 36 mmol/L (21-32); Calcium, Blood 8.4 mg/dL (8.5-10.1); Chloride, Blood 86 mmol/L (98-108); Creatinine, Blood 0.61 mg/dL (0.60-1.20); Glomerular Filtration Rate >60 (60-); Glucose, Blood 153 mg/dL (70-99); Potassium, Blood 5.2 mmol/L (3.5-5.5); Sodium, Blood 126 mmol/L (136-145)
--- NOTE | 2018-03-16 04:23 | NUR ---
SHIFT SUMMARY: PATIENT HAD A DIFFICULT TIME SLEEPING THIS SHIFT, AGGITATION/ANXIETY AND DISCOMFORT INCREASING WITH DROPPING O2 SATURATION ON 9L. MEDICATION GIVEN PER MD ORDERS, AGGITATION AND ANXIETY BETTER, PATIENT SLEEPING AND O2 SATURATION NOW 95% ON 7L. ALL OTHER VSS, CALL LIGHT WITHIN REACH, BED LOW AND LOCKED WITH EXIT ALARM ON. PATIENT PRODUCING LARGE AMOUNTS OF MUCUS.
[2018-03-16 04:44] LABS: Anion Gap 1 mmol/L (6-16); Blood Urea Nitrogen 15 mg/dL (8-24); Bun/Creatinine Ratio 20.5 (12.0-20.0); CO2, Blood 41 mmol/L (21-32); Calcium, Blood 8.2 mg/dL (8.5-10.1); Chloride, Blood 86 mmol/L (98-108); Creatinine, Blood 0.73 mg/dL (0.60-1.20); Glomerular Filtration Rate >60 (60-); Glucose, Blood 173 mg/dL (70-99); Potassium, Blood 5.4 mmol/L (3.5-5.5); Sodium, Blood 128 mmol/L (136-145)
[2018-03-16 05:01] LABS: PO2 Arterial 75.7 mmHg (80-100); pH Blood Arterial 7.14 (7.35-7.45)
[2018-03-16 05:32] LABS: PCO2 Arterial > 106 mmHg (35-45)
[2018-03-16 05:39] LABS: Source, Urine Catheter
--- NOTE | 2018-03-16 05:50 | NUR ---
BIPAP: APPROX 0430 PATIENT STARTED TO COUGH UP LARGE AMOUNTS OF CLEAR FROTHY SPUTUM, APPEARED TO BE CHOKING ON IT. PATIENT WAS SUCTIONED BUT O2 SATS WERE 62%, O2 TURNED UP BUT O2 SATURATIONS ONLY JESSICA TO 60% RT CALLED AND NONREBREATHER PLACED ALONG WITH INTERMITTENT SUCTIONING, ABG DRAWN AND pCO2 RESULT WAS 113. MD GAMBLE NOTIFIED, ORDERS RECIEVED AND IMPLEMENTED. PATIENT NOW ON BIPAP AT 20/10 AND 45% FIO2, MONITORING CLOSELY, FOLLOW UP ABG ORDERED FOR 0700
[2018-03-16 05:52] LABS: Appearance, Urine Clear (Clear); Bilirubin, Urine Neg (Neg); Blood, Urine Neg (Neg); Color, Urine Yellow (P-Yellow); Glucose Qualitative, Urine Neg (Neg); Ketones, Urine Neg (Neg); Leukocyte Esterase, Urine Neg (Neg); Nitrite, Urine Neg (Neg); Protein, Urine 1+ (Neg); Urobilinogen, Urine NORM (Normal)
--- NOTE | 2018-03-16 07:10 | NUR ---
INITIAL ASSESSMENT: Pt resting in bed with Bipap on. RT in room to draw ABG. Pt seems forgetful at this time and asks the same question multiple times. Pt forgetful at this time as to why he is here and what is going on. Explained the need for the bipap and that he has a john catheter. Will reinforce this teaching as needed. Pt is pleasant and cooperative to care, just forgetful. Will monitor for S/S of withdrawls. Call light in reach and bed alarm on.
[2018-03-16 07:11] LABS: PO2 Arterial 57.1 mmHg (80-100); pH Blood Arterial 7.31 (7.35-7.45)
[2018-03-16 07:12] LABS: PCO2 Arterial 93 mmHg (35-45)
--- NOTE | 2018-03-16 09:56 | NUR ---
UPDATE: Pt was take off of bipap for breakfast. Tolerated 11L high flow O2 and maintained bios of 88-90. After breakfast placed back onto Bipap at 18/10 and 45%. Pt tolerating well. Will continue to monitor pt needs.
--- NOTE | 2018-03-16 10:50 | NUR ---
UPDATE: When Pt up to comode for BM his HR increased into the 160's, appears to maybe be afib. Pt. put back to bed and BIPAP placed. HR did not decrease. Notified Physician. Will follow through with orders. Pt denies CP, states that he does have some lower back pain with movement.
--- NOTE | 2018-03-16 12:12 | NUR ---
Pt appears to be dowsing comfortably on BIPAP. HR still 160's. EKG done and bolus NS running. Will continue to treat per physician orders. Will monitor.
--- NOTE | 2018-03-16 18:10 | NUR ---
SHIFT SUMMARY: Pt started the shift with the Bipap in place and ABG being drawn. ABG improved but CO2 was still high in the 90's. Pt was encouraged to leave bipap in place. PT tolerated BIpap on and off throughout shift and was on except for meals. when off of bipap he was on Db flow NC. RT was able to titrate O2 down to 7L high flow to maintain biox of 88-92%. At around 1035 Pt got up to BSC with INTERPRETIVE NATURALIST and HR jumped up to 160-170's. At that time it was difficult to tell if pt was in afib or SVT. Once back in bed, EKG was done per orders and showed AFIB. See emar for medications given. Cardizem gtt running at 15mg/hr at this time and HR has decreased to the low 100-110's range. It appears on tele that pt is in afib/flutter. SBP has maintained above 100. Pt ETOH withdrawls have been at the highest 7. PT was medicated twice with librium. Pt is still forgetful about situation and severity of illness. He has asked to go out and smoke multiple times and has been educated on the resks of smoking and that he is on too much oxygen to leave his room. Pt has refused a nicotine patch. No other changes. WIll continue to monitor and will report to night RN.
[2018-03-17 04:22] LABS: BASOPHILS ABSOLUTE AUTO 0.03 K/mm3 (0.00-0.23); BASOPHILS PERCENT AUTO 0 % (0-2); EOSINOPHILS PERCENT AUTO 0 % (0-6); Hematocrit 44.5 % (37.0-53.0); Hemoglobin 13.2 g/dL (13.5-17.5); IMMATURE GRAN PERCENT AUTO 1 % (0-1); LYMPHOCYTES ABSOLUTE AUTO 0.97 K/mm3 (0.84-5.20); LYMPHOCYTES PERCENT AUTO 5 % (21-46); MONOCYTES ABSOLUTE AUTO 1.76 K/mm3 (0.16-1.47); MONOCYTES PERCENT AUTO 8 % (4-13); Mean Corpuscular HGB 28.4 pg (26.0-34.0); Mean Corpuscular HGB Conc 29.7 g/dL (31.5-36.5); Mean Corpuscular Volume 96 fL (80-100); Mean Platelet Volume 9.4 fL (9.1-12.4); NEUTROPHILS ABSOLUTE AUTO 18.57 K/mm3 (1.96-9.15); NEUTROPHILS PERCENT AUTO 86 % (41-73); NRBC ABSOLUTE 0.07 K/mm3 (0.00-0.02); NRBC Auto 0.3 /100 WBC (0.0-0.2); Platelet Count 431 K/mm3 (150-400); RDW Coefficient Variation 14.6 % (11.7-14.2); RDW Standard Deviation 51.7 fL (35.1-46.3); Red Blood Cell Count 4.64 M/mm3 (4.30-5.90); White Blood Cell Count 21.53 K/mm3 (4.00-11.30)
[2018-03-17 04:38] LABS: Bun/Creatinine Ratio 24.9 (12.0-20.0); Calcium, Blood 7.7 mg/dL (8.5-10.1); Creatinine, Blood 1.69 mg/dL (0.60-1.20); Potassium, Blood 4.7 mmol/L (3.5-5.5)
--- NOTE | 2018-03-17 05:26 | NUR ---
shift summary: PATIENT TOLERATED BIPAP X4 HRS INTERMITTENTLY THIS SHIFT. CARDIZEM RUNNING AT 10, PATIENT INTERMITTENT CONFUSION, VSS. CALL LIGHT WITHIN REACH, BED LOW AND LOCKED, EXIT ALARM ON.
--- NOTE | 2018-03-17 17:37 | NUR ---
END OF SHIFT PT HAS HAD NO CHANGES TO THE ASSESSMENT, VSS, PT ABLE TO AMBULATE TO THE BEDSIDE COMMODE, PT DESATS WHEN FALLING ASLEEP, PT WILL WEAR THE BIPAP FOR ABOUT 15 MIN, PT LOC IS DOING BETTER
--- NOTE | 2018-03-17 21:45 | NUR ---
ASSUMED CARE PATIENT ORIENTED TO LOCATION, SLOW TO RESPOND AND FLAT WITH RESPONSES. PATIENT NEEDS CONTINUED REINFORCEMENT AND EDUCATION ON BIPAP USE AND CURRENT ILLNESS. PATIENT HAS BIPAP AT BEDSIDE ON AND OFF WITH FIO2 AT 45% - HIGH FLOW CANNULA WHEN BIPAP NOT IN PLACE WAS AT 10 LPM AND NOW TITRATED DOWN TO 5 LPM - CONTINUOUS BIOX REMAINS IN PLACE. PATIENTS HEART RATE CONTINUED TO CLIMB IN THE 160'S AFLUTTER - MD NOTIFIED AND MEDICATIONS GIVEN PER EMAR - HEART RATE HAS SINCE COME DOWN TO AFLUTTER IN 130'S. WILL CONTINUE TO MONITOR. NO OTHER ACUTE FINDINGS NOTED AT THIS TIME. PATIENT IS UNKEPT AND HOMELESS PER CHART.
--- NOTE | 2018-03-18 05:24 | NUR ---
PCU NOC SHIFT SUMMARY PATIENT ORIENTED TO SELF AND LOCATION. PATIENT CONFUSED TO SITUATION AND REFUSES TO HELP SELF W/O AID/DIRECTION. PATIENT DENIES ANY PAIN T/O SHIFT. BIPAP WORN ON AND OFF T/O SHIFT - APPROX 4 HOURS ON. PATIENT TITRATED DOWN TO 5 LPM HIGH FLOW CANNULA. RESP E/U AT REST. PATIENT UP TO BEDSIDE COMMODE WITH STAND BY ASSIST WELL BUT NEEDS PROMPTING HE BECOMES CONFUSED AT TO WHAT HE IS DOING AND HIS GENERAL LOCATION. PATIENT DEMANDING OF FOOD T/O SHIFT - PATIENT EDUCATED ON BREATHING AND DECREASED SPO2 T/O SHIFT - PATIENT CONSTANTLY TAKING HIS OXYGEN AND BIPAP OFF T/O SHIFT. VSS. CARDIEZEM GTT CONTINUED TO INFUSE NOW AT 10 ML/HOUR - HEART RATE REMAINS IN AFLUTTER 100'S. NO ACUTE CHANGES NOTED. CALL LIGHT W/I REACH, BED ALARM ON. WILL CONTINUE TO MONITOR AND GIVE REPORT TO DAYSHIFT RN.
[2018-03-18 06:29] LABS: Bun/Creatinine Ratio 35.6 (12.0-20.0); Calcium, Blood 7.8 mg/dL (8.5-10.1); Creatinine, Blood 2.05 mg/dL (0.60-1.20); Potassium, Blood 5.1 mmol/L (3.5-5.5)
--- NOTE | 2018-03-18 18:31 | NUR ---
END OF SHIFT PT HAS NO PAIN, VSS, PT HAS CONDOM CATHTER, PT IS STILL CONFUSED, PT IS STILL NOT ABLE TO WALK WITH A STEADY GATE
--- NOTE | 2018-03-19 02:40 | NUR ---
BIPAP PLACE 21/12 WITH FIO2 40% BIOX 91%
[2018-03-19 04:24] LABS: BASOPHILS ABSOLUTE AUTO 0.03 K/mm3 (0.00-0.23); BASOPHILS PERCENT AUTO 0 % (0-2); EOSINOPHILS ABSOLUTE AUTO 0.01 K/mm3 (0.00-0.68); EOSINOPHILS PERCENT AUTO 0 % (0-6); Hematocrit 43.8 % (37.0-53.0); Hemoglobin 12.9 g/dL (13.5-17.5); IMMATURE GRAN ABSOLUTE AUTO 0.12 K/mm3 (0.00-0.10); IMMATURE GRAN PERCENT AUTO 1 % (0-1); LYMPHOCYTES ABSOLUTE AUTO 1.31 K/mm3 (0.84-5.20); LYMPHOCYTES PERCENT AUTO 6 % (21-46); MONOCYTES ABSOLUTE AUTO 2.15 K/mm3 (0.16-1.47); MONOCYTES PERCENT AUTO 10 % (4-13); Mean Corpuscular HGB 27.6 pg (26.0-34.0); Mean Corpuscular HGB Conc 29.5 g/dL (31.5-36.5); Mean Corpuscular Volume 94 fL (80-100); Mean Platelet Volume 9.4 fL (9.1-12.4); NEUTROPHILS ABSOLUTE AUTO 18.76 K/mm3 (1.96-9.15); NEUTROPHILS PERCENT AUTO 84 % (41-73); NRBC ABSOLUTE 0.03 K/mm3 (0.00-0.02); NRBC Auto 0.1 /100 WBC (0.0-0.2); Platelet Count 402 K/mm3 (150-400); RDW Coefficient Variation 14.9 % (11.7-14.2); RDW Standard Deviation 51.5 fL (35.1-46.3); Red Blood Cell Count 4.67 M/mm3 (4.30-5.90); White Blood Cell Count 22.38 K/mm3 (4.00-11.30)
[2018-03-19 04:37] LABS: Anion Gap 1 mmol/L (6-16); Blood Urea Nitrogen 66 mg/dL (8-24); Bun/Creatinine Ratio 52.8 (12.0-20.0); CO2, Blood 38 mmol/L (21-32); Calcium, Blood 8.2 mg/dL (8.5-10.1); Chloride, Blood 89 mmol/L (98-108); Creatinine, Blood 1.25 mg/dL (0.60-1.20); Glomerular Filtration Rate >60 (60-); Glucose, Blood 109 mg/dL (70-99); Magnesium, Blood 2.3 mg/dL (1.6-2.4); Potassium, Blood 5.4 mmol/L (3.5-5.5); Sodium, Blood 128 mmol/L (136-145)
[2018-03-19 05:56] LABS: PCO2 Arterial 88 mmHg (35-45); PO2 Arterial 81.3 mmHg (80-100); pH Blood Arterial 7.26 (7.35-7.45)
--- NOTE | 2018-03-19 06:31 | NUR ---
PCU NOC SHIFT SUMMARY PATIENT ORIENTED TO SELF. PATIENT CONFUSED TO LOCATION AND DATE. PATIENT DROWSY T/O SHIFT. BIPAP AND BIOX IN ROOM AND IN USE T/O SHIFT. PATIENT REORIENTED T/O SHIFT. PATIENT UP WITH 2 PERSON STAND BY ASSIST TO COMMODE AND IS WEAK WITH BUCKLING GAIT. PATIENT HEART RATE HAS BEEN AFLUTTER WITH RVR OF 150'S T/O SHIFT, FORCER MAKER CALLED X3 T/O SHIFT AND CARDIAC MEDICATIONS ORDERS (SEE EMAR). PATIENTS RATE HAS SINCE IMPROVED TO THE 80'S. PATIENT REMAINS ON 7 LPM HIGH FLOW CANNULA AND BIPAP WITH FIO2 OF 40% T/O SHIFT. ABG RECIEVED BY RESPIRTORY THERAPY AND CRITICAL VALUES REPORTED - DISCUSSED WITH RT AND MD MAYES. IV'S PATENT. PATIENT INCONTINENT OF URINE AT TIMES AND USES URINAL AT TIME. BIPAP CURRENTLY IN PLACE DUE TO ABG VALUES. WILL CONTINUE TO MONITOR AND GIVE REPORT TO DOYLE BROCK.
--- NOTE | 2018-03-19 09:30 | NUR ---
TALKED TO ABOUT HR SPOKE WITH DR. BRAVO ABOUT RYTHM AND RATE CONTROL, PT HAS HAD A RATE THAT IS BETWEEN 80 TO 160, MD INFORMED TO INCREASE THE METOPROLOL TO 100 AND THAT HE WILL ADD CARDIZAM IN THE AM, MD WAS NOT CONSERNED IF THE HR WENT ABOVE 160,
--- NOTE | 2018-03-19 16:15 | NUR ---
PT RESTRAINTS PT AT 1530 WAS FOUND SITTING ON THE EDGE OF THE BED WITH THE BED ALARM GOING OFF, PT WHEN ASKED WHAT WAS GONING ON THE PT WAS CONFUSED AND WAS ASKING US TO GET THE POLICE, PT WAS NOT AWARE OF WHERE HE IS OR WHO THE STAFF WAS, PT HAD THE TELE BOX AND THE CALL LIGHT, PT WAS STARTING TO BECOME AGRESSIVE AND LOOKED READY TO SWING, EFFORTS WHERE MADE TO DEESCOLATE THE SITUATION, DR. SHAFER WAS CALLED, PT WAS STILL BEING AGRESSIVE, AND SECURITY WAS THERE THE MD TRIED TO DEESCOLATE THE SITUATION AND WAS GIVEN A ORDER FOR HALADOL, PT WAS STILL COMBATIVE AND SECURITY AND STAFF RESTAINED WITH 4 POINT SOFT RESTRAINTS, PT WAS ALSO GIVEN MEDS PER ORDERS, PT WAS PLACED ON BIPAP,, ORDER WAS GIVEN TO MOVE THE PT TO ICU FOR RESTAINTS WITH BIPAP, PT WAS QUICKLY REMOVED FROM THE RESTRAINTS DUE TO CLAMING EFFECTS OF THE MEDS, PT HAS TRANSFERED BACK TO PCU STATUS,
--- NOTE | 2018-03-19 21:13 | NUR ---
PCU NIGHTSHIFT ASSUMED CARE OF PT APPROX 1900. PT CURRENTLY HAS BIPAP IN PLACE AND SLEEPING. AWOKE PT TO COMPLETE ASSESSMENT. PT CONTINUAL FELL BACK ASLEEP DURING ASSESSMENT BUT REMAINED AROUSABLE AND ABLE TO ANSWER SOME QUESTIONS ALTHOUGH HAD TO REPEAT QUESTION BEFORE RECIEVING AN ANSWER. PT ORIENTED TO SELF, SURROUNDING AND PLACE. ONCE AWOKEN, ABLE TO FOLLOW DIRECTIONS. PT JARETHY HAD BIPAP IN PLACE WITH OXYGEN SATS IN 90'S. PT HEART RATE REMAINS AT 150-160'S AT THIS TIME. ALL OTHER VITAL SIGNS STABLE. ORAL METROLOL GIVEN PER EMAR AND MONITOR HEART RATE, IF DOES NOT HELP WILL NOTIFIED NIGHT PMD. BED IN LOW POSITION, BED ALARM ON, CALL LIGHT IN REACH AND PT DENIES ANY NEEDS AT THIS TIME.
--- NOTE | 2018-03-19 22:47 | NUR ---
NOTE CONDOM CATHETER NO LONGER IN PLACE. PT ABLE TO STAND UP AT BEDSIDE TO USE URINAL WITH DIRECTION. PT AWAKE AT THIS TIME AND ABLE TO HAVE CONVERSATION. PT REQUESTING A SNACK AT THIS TIME WHICH WAS GIVEN AND PT CURRENLY EATING. NO TROUBLES STAYING AWAKE. HEART RATE AT THIS TIME RANGING FROM 120'S-130'S. WILL CONTINUE TO MONITOR.
--- NOTE | 2018-03-19 22:57 | NUR ---
ADDITION TO PREVIOUS NOTE PLACED PT ON 8L OXYGEN VIA NASAL CANULA WHILE EATING. OXYGEN SATS REMAIN IN 90'S.
--- NOTE | 2018-03-20 05:22 | NUR ---
NOTE PT HEART RATE AVERGAING 150'S-160'S PMD NOTIFIED. ONE TIME DOSE OF IV LOPRESSOR 50MG WAS GIVEN APPROX. 0250 FOR THIS. PT HEART RATE LOWERED TO AVERAGING 140'S AFTER THIS. PT HEART RATE HAS CONTINUED TO AVERAGE 140'S ALTHOUGH REMAINS ASYMPTOMATIC WITH THIS. PMD NOTIFIED AND NO NEW ORDERS GIVEN OTHER THAN TO CONTINUE TO MONIOTR PT AT THIS TIME.
[2018-03-20 05:29] LABS: BASOPHILS ABSOLUTE AUTO 0.02 K/mm3 (0.00-0.23); BASOPHILS PERCENT AUTO 0 % (0-2); EOSINOPHILS ABSOLUTE AUTO 0.06 K/mm3 (0.00-0.68); EOSINOPHILS PERCENT AUTO 0 % (0-6); Hemoglobin 12.7 g/dL (13.5-17.5); IMMATURE GRAN ABSOLUTE AUTO 0.14 K/mm3 (0.00-0.10); IMMATURE GRAN PERCENT AUTO 1 % (0-1); LYMPHOCYTES ABSOLUTE AUTO 1.93 K/mm3 (0.84-5.20); LYMPHOCYTES PERCENT AUTO 12 % (21-46); MONOCYTES ABSOLUTE AUTO 2.15 K/mm3 (0.16-1.47); MONOCYTES PERCENT AUTO 13 % (4-13); Mean Corpuscular HGB 27.7 pg (26.0-34.0); Mean Corpuscular HGB Conc 28.9 g/dL (31.5-36.5); Mean Corpuscular Volume 96 fL (80-100); Mean Platelet Volume 9.6 fL (9.1-12.4); NEUTROPHILS ABSOLUTE AUTO 11.89 K/mm3 (1.96-9.15); NEUTROPHILS PERCENT AUTO 73 % (41-73); NRBC ABSOLUTE 0.02 K/mm3 (0.00-0.02); NRBC Auto 0.1 /100 WBC (0.0-0.2); Platelet Count 397 K/mm3 (150-400); RDW Coefficient Variation 14.6 % (11.7-14.2); RDW Standard Deviation 52.6 fL (35.1-46.3); Red Blood Cell Count 4.58 M/mm3 (4.30-5.90); White Blood Cell Count 16.19 K/mm3 (4.00-11.30)
--- NOTE | 2018-03-20 05:44 | NUR ---
SHIFT SUMMARY PT PLEASANT AND COOPERATIVE. PT MUCH MORE AWAKE SINCE BEGINNING OF SHIFT. PT ABLE TO HOLD CONVERSATIONS WITHOUT FALLING ASLEEP. PT SPENT MOST OF SHIFT AWAKE AND UP TO HAVE SANDWHICHS A COUPLE TIMES THIS SHIFT. PT REMAINS ORIENTED TO SELF, EVENT AND PLACE AND ABLE TO FOLLOW DIRECTIONS ALTHOUGH DIRECTIONS HAD TO BE REPEATED AT TIMES. PT ABLE TO STAND UP AT BEDSIDE TO USE URIANL NEEDED WITH A ONE PERSON ASSIST. PT BRIDGER HAS 8L OXYGEN ON VIA NASAL CANUALA WITH OXYGEN SATS IN 90'S. PT SPENT PART OF SHIFT WITH BIPAP IN PLACE. INTERMITENTLY, WHAT PT WAS SAYING WAS DIFFICULT TO FOLLOW. SURGICAL NURSE PRACTITIONER REMAINS IN PLACE AT THIS TIME, BED IN LOW POSITION, BED ALARM ON, CALL LIGHT IN REACH AND PT DENIES ANY NEEDS AT THIS TIME. WILL CONTINUE TO MONITOR UNTIL HANDOFF TO DAYSHIFT RN.
[2018-03-20 05:46] LABS: Anion Gap 1 mmol/L (6-16); Blood Urea Nitrogen 46 mg/dL (8-24); Bun/Creatinine Ratio 57.6 (12.0-20.0); CO2, Blood 41 mmol/L (21-32); Calcium, Blood 8.6 mg/dL (8.5-10.1); Chloride, Blood 92 mmol/L (98-108); Glomerular Filtration Rate >60 (60-); Glucose, Blood 106 mg/dL (70-99); Magnesium, Blood 2.4 mg/dL (1.6-2.4); Potassium, Blood 4.8 mmol/L (3.5-5.5); Sodium, Blood 134 mmol/L (136-145)
--- NOTE | 2018-03-20 11:40 | NUR ---
Heart rate is now trending 120s, stable with activity such as getting OOB to chair. Hypoxia noted with minimal activity while on oxygen delivery 8 l/min via high flow n.c. 82% following OOB to bedside chair, improved to 89% shortly after with deep breathing and no increase in the oxygen delivery rate. The pt requires hourly if not more frequent reminders to keep his oxygen on, put it in his mouth to recover after activity (he breathes through his mouth most of the time). Limited understanding and retention of information given to him regarding current illness and ongoing treatment.
--- NOTE | 2018-03-20 12:20 | NUR ---
Alerted to the pt's hypoxia by continous oxymetry alarm. SpO2 was 77% and the pt had again removed his oxgyen n.c. while eating lunch. Replaced the oxygen, and reminded the patient that if he does not keep his oxygen on, it may cause him serious harm, even . He said, "Oh, ok" and kept it on.
--- NOTE | 2018-03-20 12:27 | NUR ---
Oxygen level is now 89% while he is eating, on 11 l/min hi flow nasal cannula. He is not distressed, and eating lunch while up in chair. Heart rate is currently (atrial fibrillation) at 106.
--- NOTE | 2018-03-20 12:48 | NUR ---
Call to Dr. Zazueta to update him on the pt's condition and good response to the oral cardizem.
--- NOTE | 2018-03-20 15:19 | NUR ---
The pt is continuing to refuse to use the bipap, although it has been suggested to him several times today. He very often pulls the oxygen off of his face, which leads to a sudden drop in his spo2. His work of breathing is increased, and his spo2 maintains well above 90% as long as he is wearing the oxygen n.c. in his mouth. However, his breathing is still labored even when the spo2 is 90% or greater. I recommended using the bipap very strongly to reduce his work of breathing, but he continues to refuse. Currently his spo2 is 91% on 11 l/min n.c.
--- NOTE | 2018-03-20 16:32 | NUR ---
Responding well to cardizem orally given; HYpoxia with minimal activity while on hi flow oxygen n.c. delivery. Recovery with rest and deep breathing. The pt is not able to cough effectively; cough is shallow. Encouraged him to deep breathe and attempt to cough.
--- NOTE | 2018-03-20 17:07 | NUR ---
SPO2 86-87% ON 11 L/MIN. PT AGREED TO BIPAP FOR A FEW MINUTES BEFORE DINNER. SPO2 91% ON 40% FIO2, PRESSURES 16/8. ENCOURAGED THE PT TO KEEP THE BIPAP ON UNTIL DINNER TIME.
--- NOTE | 2018-03-20 17:26 | NUR ---
WEARING THE NASAL CANNULA, DELIVERY RATE INCREASED TO 12 L/MIN WHILE EATING TO KEEP SPO2 GREATER THAN 88%. HE IS NOT DISTRESSED, SITTING UP IN BED, EATING.
--- NOTE | 2018-03-20 17:27 | NUR ---
SUMMARY Confused, appropriate in responses to ongoing events, basic questions about how he is doing, and what his current needs are. Very limited understanding of current illness. Frequently forgets that his must keep his oxgyen on, and also does not want to comply with use of bipap as needed. No agitation or combativeness today. Cooperative and pleasant, cheerful. Heart rate was responsive to oral cardizem today, atrial flutter reduced from 140s-160s to 80-100 bpm at this time. Requiring 8-12 l/min hi flow nasal cannula oxygen delivery, depending on activity. Oxygen delivery more effective when placed in his mouth as he breathes through his mouth and not his nose. Tolerated the bipap for about 20 minutes before dinner this evening. Continent of stool and urine.
--- NOTE | 2018-03-20 22:40 | NUR ---
EXERTIONAL SOB AND DESAT. EXPRESSES NEEDS IN SHORT SENTENCES. LIMITED CONVERSATION ENCOURAGED. DENIES PAIN. HR AT 2000 120 AT REST. MUST STAND TO VOID AND BEGINS TO LEAVE THE BED W/O USING CALL LITE. SOME FORGETFULNESSS AND MOSTLY APPROPRIATE ON QUESTIONS ASKED FOR ORIENTATION. W/ MORE ACTIVITY W/ VOIDING OUT OF BED HR 140'S.CONSTANTLY INSTRUCTED ON THE BREATHING RECOVERY AND MEDS TO IMPROVE AF/FLUTTER RVR. HS SNACK TAKEN AND AT SLOW INTERVALS DUE TO NEED TO RMOVE HIGH FLOW NC FROM MOUTH AND KEEP IN NARES FOR CHEWING AND DRINKING.CALM COOPERTIVE. JOKING . ATTEMPTING TO RELAX IN HIGH FOWLERS W/ SUCCESS. AND INTERRUPTED TO VOID.
[2018-03-21 05:29] LABS: BASOPHILS ABSOLUTE AUTO 0.03 K/mm3 (0.00-0.23); BASOPHILS PERCENT AUTO 0 % (0-2); EOSINOPHILS ABSOLUTE AUTO 0.07 K/mm3 (0.00-0.68); EOSINOPHILS PERCENT AUTO 0 % (0-6); Hematocrit 45.7 % (37.0-53.0); Hemoglobin 13.4 g/dL (13.5-17.5); IMMATURE GRAN ABSOLUTE AUTO 0.12 K/mm3 (0.00-0.10); IMMATURE GRAN PERCENT AUTO 1 % (0-1); LYMPHOCYTES ABSOLUTE AUTO 1.69 K/mm3 (0.84-5.20); LYMPHOCYTES PERCENT AUTO 10 % (21-46); MONOCYTES ABSOLUTE AUTO 2.41 K/mm3 (0.16-1.47); MONOCYTES PERCENT AUTO 15 % (4-13); Mean Corpuscular HGB 28.4 pg (26.0-34.0); Mean Corpuscular HGB Conc 29.3 g/dL (31.5-36.5); Mean Corpuscular Volume 97 fL (80-100); Mean Platelet Volume 9.8 fL (9.1-12.4); NEUTROPHILS ABSOLUTE AUTO 11.98 K/mm3 (1.96-9.15); NEUTROPHILS PERCENT AUTO 74 % (41-73); Platelet Count 417 K/mm3 (150-400); RDW Coefficient Variation 14.4 % (11.7-14.2); RDW Standard Deviation 52.1 fL (35.1-46.3); Red Blood Cell Count 4.72 M/mm3 (4.30-5.90)
[2018-03-21 05:46] LABS: Anion Gap 1 mmol/L (6-16); Blood Urea Nitrogen 31 mg/dL (8-24); Bun/Creatinine Ratio 42.2 (12.0-20.0); CO2, Blood 43 mmol/L (21-32); Chloride, Blood 90 mmol/L (98-108); Creatinine, Blood 0.73 mg/dL (0.60-1.20); Glomerular Filtration Rate >60 (60-); Glucose, Blood 122 mg/dL (70-99); Potassium, Blood 5.2 mmol/L (3.5-5.5); Sodium, Blood 134 mmol/L (136-145)
--- NOTE | 2018-03-21 06:25 | NUR ---
O2 RANGE 9-11 L HIGH FLOW. DOES NOT SPEAK IN FULL SENTENCES. WHISPERS MUMBLES. EXPRESSES NEEDS FORGETFUL AND A LITTLE CONFUSED. STAYED AWAKE ALL NOC. W/ VOIDING AND EATING. CALM AND NOT ANXIOUS. BUT STRUGGLE TACHEPNEC W/ EXERTION.ONE TIME A LITTLE LONGER IN THE SAT RECOVERY ON 11L AND UP TO 13 TEMPORARILY. GOOD APPETITE, EARLY PO CARDIZEM TO CHECK RESPONSE. MOSTLY 120 RANGE AND SEE LASER DOCUMENTATION TO SOME REDUCED HR POST PO CARDIZEM. VERY TIGHT AIR EXCHANGE T/O BOTH LUNGS AND WZ COARSE ALSOMANY ATTEMPTS TO HAVE PT WEAR BIPAP AND AGREED AND WORN X 1 FOR 15 MIN
--- NOTE | 2018-03-21 08:59 | NUR ---
The pt continues to occasionally pull his oxygen cannula off. Reported to me was that he refused the bipap last night. This morning he has not been agreeable to it. I entered the room three times already with his oxygen level alarming anywhere from 77 to 85% spo2. This last time he had apparently pulled the bipap off. His lung sounds are very wheezy at this time. Dr. Gonzalez here and told me of the changes orders in medications. He appears exhausted, is confused, forgetful, fixed on making phone calls while at the same time hypoxic and struggling to breathe, but this may be due to exhaustion and confusion also due to the hypoxia. His oxygenation was not improving even with the 13 l/min n.c. delivery, so I was able to get him to put the bipap on, and now his spo2 is 96% and he is resting in bed, lights dimmed, with pillows surrounding his head and shoulders to help him to perhaps get some sleep. bipap settings are 16/8 and fio2 is 60%. Respiratory rate is 25 / min
--- NOTE | 2018-03-21 09:04 | NUR ---
The pt's brother Hiram called me this morning, stated that he will come down to see [place] Wednesday unless he can get here sooner. STates that he does not have a place for [place] to stay, as he is taking care of his elderly who is ill and also his sister in law. His phone number he gave me was [phone]
--- NOTE | 2018-03-21 09:23 | NUR ---
pt requested use of urinal and breakfast. Pt took his oral medications and is now eating breakfast, 13 l/min n.c. oxygen delivery, and after bipap and wearing the nasal cannula in his mouth, spo2 is 95% on 13 l/min.
--- NOTE | 2018-03-21 11:45 | NUR ---
Inital Visit: Palliative Care Consult for goals of care. Pt visit this AM. He is wearing a BIPAP during visit and is able to answer questions in 1 or 2 word sentences. He reports pain in his right hip and right lower back. During visit he appears to become anxious and takes his mask off and O2 sats drop to 59%. Floor nurse comes in and helps to place the mask back on. Kept assessment with Pt short due to dyspnea and anxiety. Friend of Pt (Rodolfo) present towards the end of visit. He reports helping Pt with transportation when it comes to picking medications up from pharmacy. Rodolfo reports before this hospitalization Pt prefered to be homeless due to the freedom and lack of need for responsibility. He states this hospitalization may help Pt reconsider his life choices. Pt is shaking his up and down during this conversation idicating he is agreeing with this statement. Rodolfo reports he is still able to help Pt with transportation needs but is unable to take him in and help care for him. Noticed Pt becoming anxious again and this RN ended the visit. Called and spoke with Pt's brother Hiram and he reports that he does not know the Pt very well. Pt just recently moved hear from [place]. Hiram reports as a child he was told the Pt due to a heart condition. Hiram states he has a and sister in law to care for and is unable to help care for Pt. He plans to visit Pt on Wednesday (03/23/18). Hiram reports knowing the Pt well enough to know he does not take his medications appropriately. Spoke with Pt's nurse Pinky and she reports Pt has a Manager Advertising consult scheduled for today. She reports Pt's cardiac issues have stabilized but his oxygen needs have significantly increased. Plan for now: Monitor for symptom management including need for anxiety management. Will reassess needs PRN. Will remain available. Pt's nurse reports anxiety is managed as long as Pt remains compliant with BIPAP.
--- NOTE | 2018-03-21 11:55 | NUR ---
[place] was agreeable to wear the bipap for perhaps 45 minutes to an hour. Currently he is eating some lunch, with nasal cannula in his nose, rate at 15 l/min and spo2 89%. When the nasal cannula is in his mouth he maintains spo2 of greater than 90 on flow rate of 13 l/min. Breathing effort is labored, sitting in high cruz's position. Receiving meal assistance from the respiratory therapist at this time to allow for breaks and oxygenation via his mouth with the nasal cannula in between breaks.
--- NOTE | 2018-03-21 12:39 | NUR ---
LORAZAPAM GIVEN FOR ANXIETY. PRESENTLY WEARING THE BIPAP. THE PT IS MILDLY ANXIOUS, AND HAS DIFFICULTY TOLERATING THE BIPAP AT TIMES.
--- NOTE | 2018-03-21 13:24 | NUR ---
The pt continues to wear the bipap. He is still fidgety, moving his arms around while keeping his eyes closed. Responsive to verbal stimuli, but sleepy. SPO2 is 87-90% with fio2 50% and pressures 16/8. Respiratory rate is 30 /min. Heart rate has come down to 91-110 range. Called RT Farhada and fiO2 increased on the bipap to 60%. SpO2 improved to 93% as long as the bipap remains in place. Occasionally pulls bipap off.
--- NOTE | 2018-03-21 15:09 | NUR ---
Keshawn with palliative care is with the pt. now; the pt was given a break from the bipap and is wearing the nasal cannula at 13 l/min via his mouth and is maintaining spo2 93% at this time. The pt appears uncomfortable, restless, and has accessory muscle use and labored respirations with the most minimal activity. He is barely tolerating conversation at this time.
--- NOTE | 2018-03-21 15:41 | NUR ---
Pt visit this afternoon. Pt is experiencing significant confusion. He is A&O x 1 at the time of visit. When asked his location he [place] and is not able to state appropriate year. He appears anxious and is struggling to breathe even with oxygen applied. He is using many accessory muscles. Spoke with Dr Chowdary and he reports planning on seeing Pt this evening approximately 1800. Spoke with Pt's nurse Pinky and she is agreeable to asking Dr Gonzalez for roxinol. Called Dr Gonzalez and received V/O for roxinol 5mg-10mg every 3 hours as needed for air hunger. Will continue to follow for symptom management.
--- NOTE | 2018-03-21 16:12 | NUR ---
The pt is asleep. Wearing oxygen n.c. in his mouth, 10 l/min flow rate. SpO2 is 97% Respiratory rate 20/min. Respirations are even, mildly labored, but no use of accessory muscles is noted.
--- NOTE | 2018-03-21 16:41 | NUR ---
The pt is more confused, which seems to be the result of small dose IV ativan given earlier for his agitation. He is having great difficulty understanding simple commands, and following directions to use the urinal. Dr. Chowdary is here now to see the patient and is calling his brother Hiram on the phone. Pt is wearing 9 l/min oxygen in his mouth.
--- NOTE | 2018-03-21 17:55 | NUR ---
Telephone report given to Nakita Frey at this time. Anticipate transfer of pt to ICU 1 for precedex drip.
[2018-03-21 18:49] LABS: Bilirubin, Urine Neg (Neg); Blood, Urine 1+ (Neg); Glucose Qualitative, Urine 1+ (Neg); Ketones, Urine Neg (Neg); Leukocyte Esterase, Urine 1+ (Neg); Nitrite, Urine Neg (Neg); Protein, Urine 1+ (Neg); Source, Urine Catheter; Urobilinogen, Urine NORM (Normal)
--- NOTE | 2018-03-21 18:49 | NUR ---
ARRIVAL TO ICU 1805 - PT ARRIVES FROM PCU TO ICU. HE IS ANXIOUS, SOB, AND MUMBLING. HR 160S UPON ARRIVAL. FOUND PTS ORAL PILLS FROM THIS AFTERNOON STILL IN HIS MOUTH. PT CONFUSED AND UNABLE TO SWALLOW ANYTHING EVEN THOUGH HE WAS YELLING FOR WATER. ONE SIP OF WATER GIVEN TO PT AND HE IMMEDIATELY CHOKED. DIGOXIN IVP GIVEN TO PT AT ARRIVAL. PRECEDEX GTT STARTED AT 0.7 MCG/KG/HR AND PT IS NOW CALM AND DROWSY. SPO2 94% ON 7L HFNC. 2ND PERIPHERAL IV INSERTED INTO ARM. TAN CATH INSERTED POST LASIX DOSE. WILL START DILTIAZEM GTT WHEN ARRIVES FROM PHARMACY HR IS 140S. WILL GIVE BEDSIDE HANDOFF REPORT TO KARLA RN.
[2018-03-21 18:58] LABS: Appearance, Urine Clear (Clear); Color, Urine Yellow (P-Yellow)
[2018-03-21 19:00] LABS: Red Blood Cells, Urine 0-2 /hpf (0-2); Squamous Epithelial Cells Not Seen /hpf (Few)
[2018-03-21 19:01] LABS: Bacteria Mod /hpf; Hyaline Casts 0-2 /lpf (0-2)
--- NOTE | 2018-03-21 19:31 | NUR ---
[place] of Care: Patient sleeping, attempts to open eyes to verbal stimuli, unable to follow commands. Precedex gtt decreased fro 0.7 mcg/kg/hr to 0.5 mcg/kg/hr, will continue to monitor and titrate as indicated. BiPAP mask place at this time 16/8/60%, O2- 93%. Tolerating BiPAP mask without difficulty at this time, but occasionally reach for mask. Peripheral IV's x2 patent and intact, infusing without difficulty. Webb cath patent and intact, draining light yellow clear urine. Bed-alarm on per safety. No s/s of pain, discomfort, SOB, or dyspnea. Will continue to monitor.
[2018-03-22 04:17] LABS: PO2 Arterial 57.9 mmHg (80-100); pH Blood Arterial 7.46 (7.35-7.45)
[2018-03-22 04:18] LABS: PCO2 Arterial 76 mmHg (35-45)
--- NOTE | 2018-03-22 07:23 | NUR ---
Shift Summary: Patient slept on/off throughout shift. Became more alert and oriented with use of BiPAP, improved from oriented to self, to oriented to self, place, year. Remained calm and cooperative with staff, with only a few attempts to pull off BiPAP mask and/or cardiac leads. Precedex titrated between 0.3-0.7 mcg/kg/hr, but at times remained alert and cooperative at 0.7mcg/kg/hr, titrated down to 0.3mcg/kg/hr throughout end of shift as patient remained cooperative. Patient also tolerated breaks from BiPAP, on high-flow NC 7LPM, decreased to 3LPM. BiPAP at 18/6 30-35%. Heart rhythm remained in A-flutter, rate 80's-low 100's throughout shift, BP stable. Webb cath remains patent and intact, draining light yellow clear urine.
--- NOTE | 2018-03-22 07:30 | NUR ---
PT STATUS PT HAS HAD ASSMENT THAT WAS IN NORMAL LIMITS, PT HR IS HIGH WILL DISCUSS WITH THE MD ABOUT THE HR, MALCOLM GONZALEZ THAT, PT HAS NO PAIN, PT PUT ON BIPAP FOR SUPPORT
--- NOTE | 2018-03-22 11:07 | NUR ---
O2 TO 4L NC
--- NOTE | 2018-03-22 11:20 | NUR ---
ASSISTED PATIENT WITH BREAKFAST AND MEDS WHILE VINOD KHAN BUSY WITH ANOTHER PATIENT. ENCOURAGED SMALL SIPS AND BITES WITH TUCK OF CHIN WITH SWALLOW. HIS HR WAS 160'S, BP CLIMBING. ERIN RN, RECEIVED ORDER FOR CARDIZEM GTT. STARTED AT 10 MG/HR. PRECEDEX GTT ALSO TITRATED PER ICU FLOWSHEET. 02 VIA NC TO 4L. PATIENT DENIES PAIN. SAYS HE BECOMES ANXIOUS AND CAN'T BREATHE SOMETIMES
--- NOTE | 2018-03-22 12:24 | NUR ---
PT UPDATE CODE STATUS PT FAMILY DISCUSSED WITH THE , PALLITIVE CARE, AND MYSELF THE NEED FOR PLANNING, CODE STATUS, AND SYMPTOM MANAGEMENT, PT IS STILL ONLY ALERT TO SELF AND THAT IS ALL, FAMILY WAS UNAWARE OF THE CURRENT DISEASE PROCESS, FAMILY CAME TO NO DISCISION AND IS CONSERNED THAT HE WILL NOT STAY IN A [facility] OR AND [facility], THEY ALSO STATED THAT THEY THINK THAT THE PT WILL NOT MAKE LIFESTYLE CHANGES
--- NOTE | 2018-03-22 16:07 | NUR ---
PT UPDATE PT HAS BEEN ON THE BIPAPFOR 3 HOURS WITH TWO 5 MIN BREAKS, PT IS ABLE TO FOLLOW DIRECTIONS BETTER, BUT THE PT IS ONLY ALERT TO SELF, PT HAS NO PAIN AND IS HAVIN RR IN THE 20'S TEMP WITH NORMAL LIMIT, PT STILL ON PRECEDEX AT 0.7, CARDIZAM AT 10, AND ZOYSN AT 12.5
[2018-03-23 04:07] LABS: BASOPHILS ABSOLUTE AUTO 0.01 K/mm3 (0.00-0.23); BASOPHILS PERCENT AUTO 0 % (0-2); EOSINOPHILS ABSOLUTE AUTO 0.01 K/mm3 (0.00-0.68); EOSINOPHILS PERCENT AUTO 0 % (0-6); IMMATURE GRAN ABSOLUTE AUTO 0.05 K/mm3 (0.00-0.10); IMMATURE GRAN PERCENT AUTO 0 % (0-1); LYMPHOCYTES ABSOLUTE AUTO 0.49 K/mm3 (0.84-5.20); LYMPHOCYTES PERCENT AUTO 4 % (21-46); MONOCYTES ABSOLUTE AUTO 0.67 K/mm3 (0.16-1.47); MONOCYTES PERCENT AUTO 5 % (4-13); Mean Corpuscular HGB 27.7 pg (26.0-34.0); Mean Platelet Volume 9.8 fL (9.1-12.4); NEUTROPHILS ABSOLUTE AUTO 12.48 K/mm3 (1.96-9.15); NEUTROPHILS PERCENT AUTO 91 % (41-73); Platelet Count 412 K/mm3 (150-400); RDW Standard Deviation 49.7 fL (35.1-46.3); Red Blood Cell Count 4.69 M/mm3 (4.30-5.90); White Blood Cell Count 13.71 K/mm3 (4.00-11.30)
[2018-03-23 04:09] LABS: Mean Corpuscular Volume 90 fL (80-100)
[2018-03-23 04:51] LABS: Albumin, Blood 2.6 g/dL (3.4-5.0); Anion Gap 6 mmol/L (6-16); Blood Urea Nitrogen 33 mg/dL (8-24); Bun/Creatinine Ratio 54.3 (12.0-20.0); CO2, Blood 39 mmol/L (21-32); Calcium, Blood 8.2 mg/dL (8.5-10.1); Chloride, Blood 88 mmol/L (98-108); Creatinine, Blood 0.61 mg/dL (0.60-1.20); Glomerular Filtration Rate >60 (60-); Glucose, Blood 131 mg/dL (70-99); Phosphorus, Blood 3.2 mg/dL (2.5-4.9); Potassium, Blood 4.5 mmol/L (3.5-5.5); Sodium, Blood 133 mmol/L (136-145)
--- NOTE | 2018-03-23 07:53 | NUR ---
[id number]: PT ALERT, ORIENTED TO SELF, GENERAL SURROUNDINGS, COOPERATIVE. SEVERAL SNACKS FOR C/O HUNGER. PRECEDEX CON'T AT 0.7 MICS. MONITOR = AF/FL, RATE 70-100. CARDIZEM GTT AT 10MG/HR. HR REMAINS STABLE, CARDIZEM DECREASED TO 5MG/HR. HS CARE, PTPLACED IN BiPAP MASK, SLEEPING SOUNDLY. WHEN AWAKENED FOR RESPIRATORY TREATMENT, REFUSED BiPAP TO THERAPIST, RETURNED TO 5L N/C. BREATH SOUNDS DIMINISHED, INTERMIT WHEEZES, DENIES DYSPNEA, ONLY TOLERATES HOB 30 DEGREES OR GREATER. DECREASES SPO2 W/ASLEEP, 92-925 DOWN TO 87-88%. INTERMIT OBSTRUCTION NOTED, PT CHOSE TO POSITION ON SIDE RATHER THAN USE BiPAP, SPO2 REMAINS > 92%. C/O "BLOATED" FEELING, ASSISTED TO BSC, FLATUS W/OUT BM. PRUNE JUICE TAKEN. TOLERATED ACTIVITY W/MINIMAL DYSPNEA, ADEQUATE STRENGTH & BALANCE, WALKER USED FOR STEADYING.
--- NOTE | 2018-03-23 08:58 | NUR ---
CARE ASSUMED REPORT AND CARE ASSUMED FROM TRAVON BROCK. PT SITTING UP IN BED WATCHING TV. NO SIGNS OF DISTRESS. DYSPNEA WITH EXERTION. PT HAS INSPIRATORY AND EXPIRATORY WHEEZING AND TIGHTNESS IN ALL LUNG MORENO. SPO2 93% ON 5L HFNC. VSS. AFEBRILE. BP ELEVATED; WILL MEDICATE NEEDED. PRECEDEX GTT INFUSING TA 0.5 MCG/KG/HR. DILTIAZEM GTT INFUSING AT 5 MG/HR. HR 90S, AFIB/AFLUTTER. DENIES PAIN. INDEPENDENTLY EATING BREAKFAST. WILL CONTINUE TO MONITOR.
--- NOTE | 2018-03-23 13:12 | NUR ---
REASSESSMENT PT SITTING UP IN BED WATCHING TV. PO CARDIZEM GIVEN TO PT AND GTT DISCONTINUED. ELEVATED BP; PT GIVEN NORVASC PO AND BP IMPROVING. TOLERATED EATING LUNCH WITHOUT DIFFICULTY. PRECEDEX GTT OFF AT 1245. DENIES PAIN. NO RESP DISTRESS. SPO2 93% ON 5L HFNC. WILL CONTINUE TO MONITOR.
--- NOTE | 2018-03-23 15:08 | NUR ---
Assumed care from Morena Rn. Patient awake in bed and is alert and is able to communnicate his needs. Currently denies any pain or any other needs. He remains 5L high flow O2 and sats low 90%'s
--- NOTE | 2018-03-23 17:30 | NUR ---
Patient sitting up in bed eating dinner and was deating while eating and increased O2 from 3 to 5L and he is in the low 90%. Pulling john and patient states he will use urinal. No real significant changes, Slightly hypertensive and A-Fib 90-120's.
--- NOTE | 2018-03-23 22:45 | NUR ---
1929: REPORT RECIEVED, PT ROUNDS. AWAKE, CALM, COOPERATIVE, PLAYING ALONG W/ "JEOPARDY" ON TV. MONITOR SHOWS AF/FLUTTER, VENTRICULAR RATE 90-120. PT APPEARS FLUSHED, AFEBRILE. SBP BELOW PRN RX PARAMETERS. USING 5L HUMIDIFIED O2 ON HIGH FLOW CANNULA, SPO2 89-91, TRANSIENTLY 86-88. PURSED LIP BREATHING ENCOURAGED, PT C/O BEING UNABLE TO EASILY BREATHE THRU NOSE D/T DEVIATED SEPTUM. RETURNED TO HIGHER RANGE BUT TRENDS INTO LOWER. 2199: SPO2 READING 77, O2 INCREASED FROM 5L, 6L, 7L. SPO2 IMPROVED TO ONLY 82. CANNULA PLACED IN PT'S MOUTH, RETURNED TO 90% O2 FLOW 7L DID NOT KEEP SPO2> 88. PT ENCOURAGED TO C&DB, POOR EFFORT. ENCOURAGED TO USE BiPAP W/ SMALLER MASK, BASSAM< 30 MIN BEFORE REMOVING.
[2018-03-24 03:44] LABS: BASOPHILS ABSOLUTE AUTO 0.02 K/mm3 (0.00-0.23); BASOPHILS PERCENT AUTO 0 % (0-2); EOSINOPHILS ABSOLUTE AUTO 0.01 K/mm3 (0.00-0.68); EOSINOPHILS PERCENT AUTO 0 % (0-6); Hematocrit 44.4 % (37.0-53.0); Hemoglobin 13.6 g/dL (13.5-17.5); IMMATURE GRAN ABSOLUTE AUTO 0.11 K/mm3 (0.00-0.10); IMMATURE GRAN PERCENT AUTO 1 % (0-1); LYMPHOCYTES ABSOLUTE AUTO 0.41 K/mm3 (0.84-5.20); LYMPHOCYTES PERCENT AUTO 2 % (21-46); MONOCYTES ABSOLUTE AUTO 0.82 K/mm3 (0.16-1.47); MONOCYTES PERCENT AUTO 5 % (4-13); Mean Corpuscular HGB 27.5 pg (26.0-34.0); Mean Corpuscular HGB Conc 30.6 g/dL (31.5-36.5); Mean Corpuscular Volume 90 fL (80-100); Mean Platelet Volume 10.1 fL (9.1-12.4); NEUTROPHILS ABSOLUTE AUTO 15.64 K/mm3 (1.96-9.15); NEUTROPHILS PERCENT AUTO 92 % (41-73); Platelet Count 471 K/mm3 (150-400); RDW Standard Deviation 49.3 fL (35.1-46.3); Red Blood Cell Count 4.95 M/mm3 (4.30-5.90); White Blood Cell Count 17.01 K/mm3 (4.00-11.30)
[2018-03-24 04:00] LABS: Albumin, Blood 2.9 g/dL (3.4-5.0); Anion Gap 5 mmol/L (6-16); Blood Urea Nitrogen 34 mg/dL (8-24); Bun/Creatinine Ratio 43.6 (12.0-20.0); CO2, Blood 44 mmol/L (21-32); Calcium, Blood 8.5 mg/dL (8.5-10.1); Chloride, Blood 88 mmol/L (98-108); Creatinine, Blood 0.78 mg/dL (0.60-1.20); Glomerular Filtration Rate >60 (60-); Glucose, Blood 171 mg/dL (70-99); Phosphorus, Blood 3.7 mg/dL (2.5-4.9); Potassium, Blood 4.6 mmol/L (3.5-5.5); Sodium, Blood 137 mmol/L (136-145)
--- NOTE | 2018-03-24 07:00 | NUR ---
Recieved report from Ana RBOCK. Patient supine in bed with HOB at 30 degrees getting breathing treatment. He is on high flow NC at 5L O2 and sats 95%. He is alert and oriented and is able to communicate his needs. He is slightly hypertensive 150's and HR 100-120's. He is on cardizem gtt and increased rate to 15mg/hr asnd NS at TKO. He has bilateral IV's dressings intact and site WNL's and infusing. He is requesting to get up and try walking for a bit and i stated we could if sats tolerate.
--- NOTE | 2018-03-24 07:11 | NUR ---
0145: ELEVATED HR, BP REPORTED TO DR GAGNON, LOPRESSOR 5 MG IV GIVEN. TRANSIENT DECREASE HR, INCREASING AGAIN INTO 120s. CARDIZEM GTT RESTARTED @ 10 MG/HR, HR DECREASING T0 95-110. BP FROM 180 SYSTOLIC TO 150s SYST. MINIMAL DESAT, 6L. SLEPT MINIMALLY.
--- NOTE | 2018-03-24 09:47 | NUR ---
Patient walked to shower and dropped to 80%'s and increased O2 to 8L O2 for brief period for him to recover and back down to 5L humidified. He was taken back to room via wheelchair, and now sats in lower 90%'s. Terrizedale turned off now that he is on higher PO doses and will wait to if working. He states he feels better.
--- NOTE | 2018-03-24 11:30 | NUR ---
Patient has been off cardizem and on PO doses and HR 80-90's and systolic 140-150's. He continues to deny any pain. He remains on 5L O2 via HFNC and sats low 90's. He is currently PCU status.
--- NOTE | 2018-03-24 14:05 | NUR ---
Pt is A&O and appears dyspneic when talking. He eve pain at this time. Discussion was made about his plan if he becomes stable enough to discharge from hospital. Pt was asked if assisted living or nursing facility was arranged whether he would consider this option. He states he might stay but would prefer to live on his own. Education given to Pt about his permanent need for oxygen and medications and the importance of adhering to medication regimen. He reports that he plans to live in low income housing and the [facility] will help with his costs of medications. Pt reports no other concerns at this time. Spoke with Pt's nurse and he expresses concerns of Pt ability and willingness to comply with recommended plan of care once discharged. Spoke with Dr Chowdary and he reports at this time Pt will not be ready for discharge for sometime and expresses same concerns as nurse. Dr Chowdary feels that having POLST form completed is not necassary at this time. Will plan to go by advance directive that is already in place. Will remain available.
--- NOTE | 2018-03-24 15:30 | NUR ---
Patient states hard time resting and did not sleep last night and requested for something to sleep for tonite. He remains on 5L O2 via HFNC and sats low 90%'s He is getting more hypertensive and we added Metoprolol BID.. Patient denies any other needs or pain.
--- NOTE | 2018-03-24 16:54 | NUR ---
Giving reprt to Jennifer Rn and transferring via wheelchair to PCU 9. All his personal belongings have been transferred. He is on 5L O2 via HFNC and sats low 90%. He has Zosyn and NS TKO infusing.
--- NOTE | 2018-03-24 17:50 | NUR ---
NURSING PCU DAYSHIFT SUMMARY: Assumed care of pt at approx 1715. Arrived from ICU via w/c. Pt currently sitting up in bed having supper. Respiratory status stable on 5L HF NC. Tele placed, afib w/rate in the 90's. Pt denies any questions/needs, bed alarm set for safety purposes, cont to monitor until rpt is given to NOC RN.
--- NOTE | 2018-03-24 19:45 | NUR ---
ASSUMED CARE PT RESTING IN ROOM WITH TAMMI AT BEDSIDE. PER DAY SHIFT PT HAS HAD NO MAJOR CHANGES IN STATUS TODAY. PT CONT TO BE DEPENDENT ON O2. PT ON 7L NC WITH SATS BETWEEN 88-92%. PT HAS O2 IN MOUTH D/T MOUTH BREATHING. DENIES PAIN. DENIES OTHER NEEDS AT THIS TIME. DAY SHIFT REPORTS PT IS STILL UNSTEADY ON FEET AND REQUIRES 1PERS ASSIST WHEN AMB D/T BLE WEAKNESS AND SOB WITH AMB. CALL LIGHT IS IN REACH. BED ALARM ON FOR SAFETY.
[2018-03-25 03:53] LABS: BASOPHILS ABSOLUTE AUTO 0.03 K/mm3 (0.00-0.23); BASOPHILS PERCENT AUTO 0 % (0-2); EOSINOPHILS ABSOLUTE AUTO 0.02 K/mm3 (0.00-0.68); EOSINOPHILS PERCENT AUTO 0 % (0-6); Hematocrit 46.4 % (37.0-53.0); Hemoglobin 13.8 g/dL (13.5-17.5); IMMATURE GRAN ABSOLUTE AUTO 0.14 K/mm3 (0.00-0.10); IMMATURE GRAN PERCENT AUTO 1 % (0-1); LYMPHOCYTES ABSOLUTE AUTO 1.21 K/mm3 (0.84-5.20); LYMPHOCYTES PERCENT AUTO 6 % (21-46); MONOCYTES ABSOLUTE AUTO 1.83 K/mm3 (0.16-1.47); MONOCYTES PERCENT AUTO 9 % (4-13); Mean Corpuscular HGB 27.3 pg (26.0-34.0); Mean Corpuscular HGB Conc 29.7 g/dL (31.5-36.5); Mean Corpuscular Volume 92 fL (80-100); Mean Platelet Volume 10.1 fL (9.1-12.4); NEUTROPHILS ABSOLUTE AUTO 17.99 K/mm3 (1.96-9.15); NEUTROPHILS PERCENT AUTO 85 % (41-73); Platelet Count 436 K/mm3 (150-400); RDW Coefficient Variation 15.3 % (11.7-14.2); RDW Standard Deviation 51.4 fL (35.1-46.3); Red Blood Cell Count 5.06 M/mm3 (4.30-5.90); White Blood Cell Count 21.22 K/mm3 (4.00-11.30)
--- NOTE | 2018-03-25 03:57 | NUR ---
PT REPORTS WILL LEAVE TODAY PT IS AWAKE IN ROOM GOING THROUGH BELONGINGS. PT REPORTS WANTS PHONE AIR TWIST OPERATOR, SAYS IT IS IN BLACK BAG THAT WAS LOCKED UP YESTERDAY D/T KNIFE BEING IN BAG. SECURITY IS ON WAY TO UNIT TO ASSIST PT IN LOOKING THROUGH BAG. PT REPORTS HE WILL BE LEAVING TODAY AFTER PROVIDER SEES HIM. PT EDUCATED THAT HE MAY NOT BE READY FOR DC TODAY D/T CONTINUED OXYGEN DEPENDENCY. PT REPORTS "I KNOW I'VE BEEN AROUND A WHILE, I'VE DELT WITH THIS. BUT I'M LEAVING TODAY". PT AGREED TO WAIT UNTIL SEEN BY PROVIDER. POLICE INSPECTOR NOTIFIED. CALL LIGHT IN REACH. PT SITTING UPRIGHT IN BED.
[2018-03-25 04:17] LABS: Anion Gap 1 mmol/L (6-16); Blood Urea Nitrogen 31 mg/dL (8-24); Bun/Creatinine Ratio 39.5 (12.0-20.0); CO2, Blood 44 mmol/L (21-32); Calcium, Blood 8.2 mg/dL (8.5-10.1); Chloride, Blood 89 mmol/L (98-108); Creatinine, Blood 0.78 mg/dL (0.60-1.20); Glomerular Filtration Rate >60 (60-); Glucose, Blood 123 mg/dL (70-99); Phosphorus, Blood 3.9 mg/dL (2.5-4.9); Potassium, Blood 5.1 mmol/L (3.5-5.5); Sodium, Blood 134 mmol/L (136-145)
--- NOTE | 2018-03-25 05:35 | NUR ---
SHIFT SUMMARY PT IS SITTING IN BED IN ROOM. PT HAS BEEN UP FOR 2 HOURS GOING THROUGH BELONGINGS AND "GETTING READY TO LEAVE". PT HAS BEEN TALKING ABOUT LEAVING ALL MORNING. THIS RN CONVINVED PT TO WAIT UNTIL SEEN BY PROVIDER THIS MORNING. WILL EVALUATE STATUS AT THIS POINT. RESP EVEN UNLABORED AT REST, SATS 88-91% ON 7L NC. PT BECOMES DYSPNIC WITH AMBULATION. NO ACUTE CHANGES IN STATUS T/O NIGHT. CALL LIGHT IS IN REACH. BED ALARM ON FOR SAFETY.
--- NOTE | 2018-03-25 08:00 | NUR ---
pt laying in bed heart rate in the 150's, pt denies complaints, has his o2 in his mouth, but keeps taking it out, is 88% while doing this. when he leaves it in his comes up to 93% on 7 liters 02 via high [place] cannula, resp even and mildly labored, no cough noted at this time, lungs are very dim t/o, hrirr, tele in place running afib in the 150's, Dr. Gonzalez in to see him and ordered iv cardizem, after giving oral meds and no results. pt did drop down to the 90-115 for about half an hr. then is back up. no edema noted, ppp faint, cap refill <3sec, vs stable, afebrile, iv sites are clear and patent, btx4, abd flat soft nontender, voids via urinal, also has attends in place, skin c/w/d with some scabs and reddness to ext, sabine, kathe, sabine, call light in reach.
--- NOTE | 2018-03-25 13:46 | NUR ---
pt resting in bed. did sit up for a while in the chair, so he could see out the window. no complaints. heart rate in the 80's. call light in reach.
--- NOTE | 2018-03-25 17:53 | NUR ---
pt sitting up in chair for meals, heart rate staying down durring the day. has asked multiple times to go outside or down to the cafeteria to get some more food, explained why he can't he accepts it. brought him extra food he wanted. doing ok. no further needs at this time. call light in reach.
--- NOTE | 2018-03-26 03:06 | NUR ---
APPROX 0130 ASSUMED CARE OF PATIENT FROM CHARITY RN. PATIENT STATING HE WAS HAVING TROUBLE BREATHING, PATIENT TRIPODING, O2 SATURATION BOUNCING BACK AND FORTH BETWEEN 86% AND 93% ON 11l HIGH FLOW. PATIENT GIVEN MEDICATION PER MD ORDER WITH RELIEF AND O2 SATURATION MAINTAINING BETWEEN 90% AND 94%. PATIENT GRABBING INAPPROPRIATLY AT RN'S BREAST AND STATING THAT HE HAD NOT BEEN WITH A WOMAN IN A LONG TIME. RN PLACED/STATED BEHAVIOR BOUNDERIES FOR THE PATIENT TO ADHERE TO WITH STAFF. PATIENT DID NOT VERBALLY RESPOND BUT STOPPED INAPPROPRIATE ACTIONS AT THIS TIME.
--- NOTE | 2018-03-26 05:21 | NUR ---
PATIENT UPDATE PATIENT STABLE AND SLEEPING, VITALS ARE WNL AND PT HAVING NO S/SX OF DISTRESS. HANDOFF GIVEN TO CRISTHIAN BROCK.
--- NOTE | 2018-03-26 08:00 | NUR ---
PT PLEASANT TALKATIVE. IS DENYING PAIN AT THIS TIME. A/O. H/R IRREG, NO MURMER NOTED. PER TELE A FLUTTER AT 110. LUNGS WHEEZY T/O. ON 7L HI FLOW N/C. RESP EASY,UNLABORED. BT X4 LAST BM YEST. ABD FIRM HARD ROUND. VOIDS URINAL. SKIN OVERALL RED TONE. DISCOLORED LEGS BLE. PT IS SBA BATHROOM. BED IN LOW POSITION, CALL LITE IN REACH. BED ALARM ON FOR SAFETY
[2018-03-26 08:28] LABS: Hematocrit 46.3 % (37.0-53.0); Hemoglobin 13.4 g/dL (13.5-17.5); Mean Corpuscular HGB 27.7 pg (26.0-34.0); Mean Corpuscular HGB Conc 28.9 g/dL (31.5-36.5); Mean Corpuscular Volume 96 fL (80-100); Mean Platelet Volume 10.3 fL (9.1-12.4); Platelet Count 388 K/mm3 (150-400); RDW Coefficient Variation 14.9 % (11.7-14.2); RDW Standard Deviation 53.1 fL (35.1-46.3); Red Blood Cell Count 4.84 M/mm3 (4.30-5.90); White Blood Cell Count 20.07 K/mm3 (4.00-11.30)
--- NOTE | 2018-03-26 18:19 | NUR ---
PT PLEASANT TODAY, HAS BEEN TO BATHROOM SEVERAL TIMES TODAY. SBA. DOES WELL AMBULATING. PT DENIES PAIN THIS SHIFT. H/R AFLUTTER IN 80'S TODAY. ON OTHER CONCERNS AT THIS TIME. BED IN LOW POSITION, CALL LITE IN REACH, BED ALARM ON FOR SAFETY
--- NOTE | 2018-03-27 06:35 | NUR ---
SHIFT SUMMARY PT ALERT AND ORIENTED X 3 THROUGHOUT SHIFT. HE HAS BEEN PLEASANT AND COOPERATIVE WITH VITALS AND ASSESSMENTS. PT ABLE TO AMBULATE WITH SBA TO BATHROOM AND USES URINAL AT BEDSIDE. HE HAD DENIED ANY COMPLAINTS OF PAIN AT THIS TIME AND SLEPT WELL T/O SHIFT. HE WOKE EASILY FOR VITALS AND ASSESSMENTS, AND NO ACUTE CHANGES WERE NOTED. PT DENIED ANY UNMET NEEDS, AND WAS ABLE TO MAKE NEEDS KNOWN EFFECITVELY. HE USED CALL LIGHT APPROPRIATELY. PT CONTINUES TO DESAT QUICKLY WHEN OFF OXYGEN AND HAS DEMANDED BETWEEN 7 AND 11 LITERS VIA HIGH FLOW O2. PT HAS BED IN THE LOWEST POSITION, CALL LIGHT IN REACH AND 2X SIDE RAILS IN PLACE. HE WILL CONTINUE TO BE MONITORED UNTIL DAYSHIFT RN.
--- NOTE | 2018-03-27 08:03 | NUR ---
BEGINNING OF SHIFT Assumed care at 0700. Bedside report recieved from Seb BROCK. Pt awake, in bed at time of report. Pt on 7 LPM NC. Often removes NC from nares and needs reminder to replace it. Shift assessment completed. HR consistently 120s, atrial flutter, per telemetry. NIBP and SpO2 incorrectly read HR in 60s. Bed in lowest position. Call light in reach. Pt denies need at this time.
--- NOTE | 2018-03-27 16:47 | NUR ---
PT REMINDED TO STAY INSIDE WHILE ON TELEMETY. PT REMINDED NOT TO SMOKE CIGARETTES WHILE ON OXYGEN.
--- NOTE | 2018-03-27 17:00 | NUR ---
TRANSFER TO MEDICAL FLOOR Pt transferred to room 331 via wheelchair, accompanied by Nora YOUSIF. Belongings, medications, and chart transferred with patient. Telephone report given to med floor RN.
--- NOTE | 2018-03-27 18:30 | NUR ---
SHIFT SUMMARY PT IS A TRANSFER FROM PCU. HE IS ON 5L O2 VIA NC. HE IS ALERT AND ORIENTED AND COOPERATIVE WITH CARE. PT IS A SMOKER AND HAS ASKED TO GO OUTSIDE TO SMOKE. HE WAS DENIED DUE TO TELEMETRY. PT USES A URINAL AT THE BEDSIDE. BED ALARM IS ARMED. BILATERAL UPPER EXTREMITY AND LOWER EXTREMITY EDEMA. PT REPORTS HAVING A BM TODAY. WILL CONTINUE TO MONITOR.
--- NOTE | 2018-03-28 06:39 | NUR ---
SHIFT SUMMARY: NO ACUTE CHANGES TO REPORT THIS SHIFT. A&O X 4, PLEASANT + COOPERATIVE c CARE. A FLUTTER @ 83 BPM PER CONFIGURATION ENGINEER. PT REMAINS ON 5L VIA NC, CASEY COARSE. USES URINAL AT BEDSIDE, STAND BY ASSIST. BED ALARM AND CHAIR ALARM FOR IMPULSIVE BEHAVIOR. WILL CONT TO MONITOR AND PROVIDE CARE UNTIL PRESUMED BY ONCOMING RN.
--- NOTE | 2018-03-28 08:00 | NUR ---
PT PLEASANT COOP A/O, SOMEWHAT FORGETFUL AT TIMES. SOME DETAILS MISSED. DENIES PAIN. H/R REG, NO MURMER NOTED. PER TELE A-FLUTTER AT 110. LUNGS WHEEZY T/O, RESP EASY, UNLABORED. ON 5L HI FLOW N/C. BT X4 LAST BM YEST. ABD FIRM LARGE PT STATES NORMAL FOR HIM. VOIDS PER URINAL. SBA ASST TO BATHROOM. BED IN LOW POSITION, CALL LITE IN REACH, BED ALARM ON FOR SAFETY. IMPULSIVE.
[2018-03-28 08:18] LABS: BASOPHILS ABSOLUTE AUTO 0.02 K/mm3 (0.00-0.23); BASOPHILS PERCENT AUTO 0 % (0-2); EOSINOPHILS ABSOLUTE AUTO 0.09 K/mm3 (0.00-0.68); EOSINOPHILS PERCENT AUTO 1 % (0-6); Hematocrit 40.9 % (37.0-53.0); IMMATURE GRAN ABSOLUTE AUTO 0.18 K/mm3 (0.00-0.10); IMMATURE GRAN PERCENT AUTO 1 % (0-1); LYMPHOCYTES ABSOLUTE AUTO 2.66 K/mm3 (0.84-5.20); LYMPHOCYTES PERCENT AUTO 16 % (21-46); MONOCYTES ABSOLUTE AUTO 1.55 K/mm3 (0.16-1.47); MONOCYTES PERCENT AUTO 9 % (4-13); Mean Corpuscular HGB 27.5 pg (26.0-34.0); Mean Corpuscular HGB Conc 29.3 g/dL (31.5-36.5); Mean Corpuscular Volume 94 fL (80-100); Mean Platelet Volume 10.3 fL (9.1-12.4); NEUTROPHILS ABSOLUTE AUTO 11.94 K/mm3 (1.96-9.15); NEUTROPHILS PERCENT AUTO 73 % (41-73); Platelet Count 284 K/mm3 (150-400); RDW Coefficient Variation 15.2 % (11.7-14.2); RDW Standard Deviation 52.6 fL (35.1-46.3); Red Blood Cell Count 4.37 M/mm3 (4.30-5.90); White Blood Cell Count 16.44 K/mm3 (4.00-11.30)
[2018-03-28 08:30] LABS: Albumin, Blood 3.3 g/dL (3.4-5.0); Anion Gap 2 mmol/L (6-16); Blood Urea Nitrogen 34 mg/dL (8-24); Bun/Creatinine Ratio 40.7 (12.0-20.0); CO2, Blood 43 mmol/L (21-32); Calcium, Blood 8.5 mg/dL (8.5-10.1); Chloride, Blood 87 mmol/L (98-108); Creatinine, Blood 0.84 mg/dL (0.60-1.20); Glomerular Filtration Rate >60 (60-); Glucose, Blood 94 mg/dL (70-99); Phosphorus, Blood 3.1 mg/dL (2.5-4.9); Sodium, Blood 132 mmol/L (136-145)
--- NOTE | 2018-03-28 10:51 | NUR ---
CALLED DR MORGAN, OKAYED TELE OFF FOR SHOWER. ALSO OKAY TO CHANGE IV FOLIC ACIT TO PO
--- NOTE | 2018-03-28 13:06 | NUR ---
Patient permission Patient gave student nurse, Christiana Decker permission to provide care on 03-29-18
--- NOTE | 2018-03-28 17:57 | NUR ---
PT PLEASANT TODAY. HAS BEEN UP IN CHAIR MOST OF AFT. SOME OF THIS AM ALSO. STATES FEELS LIKE WANTING TO GET OUT AND GET HOME. NO OTHER CONCERNS AT THIS TIME. HAS DENIED PAIN TODAY. O2 DID GO UP TO 7L THIS AFT. DID TURN BACK DOWN TO 6L AND AM MONITORING. PRESENTLY HOLDING AT >90% BED IN LOW POSITION,,CALL LITE IN REACH, CALLS APPROP
--- NOTE | 2018-03-29 03:54 | NUR ---
SHIFT SUMMARY PT ORIGINALLY ADMITTED FOR HYPONATREMIA DX WHICH HAS SINCE RESOLVED. NEEDS SPUTUM CULTURE BUT UNABLE TO OBTAIN SAMPLE PT IS UNABLE TO PRODUCE SPUTUM WITH COUGH SO FAR THIS SHIFT. CARDIAC DIET. MEDS WHOLE. 1 PERSON ASSIST WITH TRANSFERS. FULL CODE. [id number] AT A RATE OF 82 PER EGG SETTER. NENA FOR DVT PROPHYLAXIS. 20 G IV TO L FA APPEARS TO HAVE LEAKED, ATTEMPTED TO START NEW IV BUT PT REFUSED. DOES NOT APPEAR THAT IV IS ACTIVELY LEAKING AND IS CONTINUEING TO WORK WELL. HOWEVER, WINDOW DRESSING DEFINATELY NEEDS TO BE CHANGED. REAPPROACHED PT SEVERAL TIMES AND PT STATED THAT IT IS THE FIRST TIME IN THE PAST FEW NIGHTS THAT IT WASN'T HURTING AND PT DID NOT WANT IV "MESSED WITH JIMMY PULIDO." 6 L O2 SO FAR THIS SHIFT, PT PLOF WAS NO OXYGEN AT BASELINE. PT IS HOMELESS AND WOULD REALLY LIKE TO FIND A WAY TO DC TO SOME SORT OF HOUSING. PT HAS A BACKPACK WITH SECURITY THAT CONTAINS MARIJUANA AND A HATCHET PER REPORT, TICKET IN CHART. PT PRESENTED TO THE ED WITH C/O SOB THAT PERSISTED FOR SEVERAL DAYS. SOB INITIALLY WAS ONLY WITH EXERTION BUT WORSENED RAPIDLY OVER SEVERALY DAYS AND PT BECAME SOB EVEN AT REST. PT NOTED WITH ACUTE HYPOXIC RESPIRATORY FAILURE SECONDARY TO COPD EXACERBATION. THE PT ALSO HAS A HISTORY OF ALCOHOL ABUSE. REPEAT OF INITIAL CHEST X-RAY DID SHOW A R BASILAR INFILTRATE. PT HAS REFUSED TO WEAR BIPAP, PT STATED COULD NOT TOLLERATE AND MAY HAVE INTERFERRED WITH RECOVERY. HOSPITAL STATY HAS BEEN COMPLICATED BY AFIB/FLUTTER WITH RVR AND YOGI. PT HAS APPEARED TO SLEEP OFF AND ON THROUGHOUT THE NIGHT WAKING SEVERAL TIMES TO ASK FOR FOOD AND DRINKS. PT CONTINUES TO PLACE OXYGEN NC IN MOUTH RATHER THEN NOSE. HOWEVER, THIS NURSE ENTERED PTS ROOM TO FIND PT SITTING AT BEDSIDE, AND APPEARED EXTREMELY SOB WITH OXYGEN NC IN HAND. PT DID PRESENT A BIT CONFUSED AT THE MOMENT BUT REPLACED NC IN MOUTH AND PT REORIENTED FARELY QUICKLY AND ASKED FOR MORE SNACKS. PT IT AWAKE IN BED AT THIS TIME WATCHING TV. NO APPARENT SIGNS OF ACUTE DISTRESS. FREQUENT VISUAL CHECKS DUE TO INTERMITTENT FORGETFULLNESS. ABLE TO MAKE NEEDS KNOWN AND CALL LIGHT IN REACH.
[2018-03-29 05:09] LABS: BASOPHILS ABSOLUTE AUTO 0.01 K/mm3 (0.00-0.23); BASOPHILS PERCENT AUTO 0 % (0-2); EOSINOPHILS ABSOLUTE AUTO 0.06 K/mm3 (0.00-0.68); EOSINOPHILS PERCENT AUTO 0 % (0-6); Hematocrit 38.7 % (37.0-53.0); Hemoglobin 11.4 g/dL (13.5-17.5); IMMATURE GRAN ABSOLUTE AUTO 0.15 K/mm3 (0.00-0.10); IMMATURE GRAN PERCENT AUTO 1 % (0-1); LYMPHOCYTES ABSOLUTE AUTO 2.26 K/mm3 (0.84-5.20); LYMPHOCYTES PERCENT AUTO 14 % (21-46); MONOCYTES ABSOLUTE AUTO 1.46 K/mm3 (0.16-1.47); MONOCYTES PERCENT AUTO 9 % (4-13); Mean Corpuscular HGB 27.3 pg (26.0-34.0); Mean Corpuscular HGB Conc 29.5 g/dL (31.5-36.5); Mean Corpuscular Volume 93 fL (80-100); Mean Platelet Volume 10.1 fL (9.1-12.4); NEUTROPHILS ABSOLUTE AUTO 12.57 K/mm3 (1.96-9.15); NEUTROPHILS PERCENT AUTO 76 % (41-73); Platelet Count 243 K/mm3 (150-400); RDW Coefficient Variation 15.4 % (11.7-14.2); RDW Standard Deviation 52.2 fL (35.1-46.3); Red Blood Cell Count 4.18 M/mm3 (4.30-5.90); White Blood Cell Count 16.51 K/mm3 (4.00-11.30)
[2018-03-29 05:43] LABS: Albumin, Blood 3.1 g/dL (3.4-5.0); Anion Gap 2 mmol/L (6-16); Blood Urea Nitrogen 29 mg/dL (8-24); Bun/Creatinine Ratio 36.5 (12.0-20.0); CO2, Blood 45 mmol/L (21-32); Calcium, Blood 8.1 mg/dL (8.5-10.1); Chloride, Blood 86 mmol/L (98-108); Creatinine, Blood 0.79 mg/dL (0.60-1.20); Glomerular Filtration Rate >60 (60-); Glucose, Blood 103 mg/dL (70-99); Phosphorus, Blood 3.8 mg/dL (2.5-4.9); Potassium, Blood 4.4 mmol/L (3.5-5.5); Sodium, Blood 133 mmol/L (136-145)
--- NOTE | 2018-03-29 08:00 | NUR ---
PT PLEASANT COOP TALKATIVE. ON 6L O2 USUALLY PLACED IN MOUTH. H/R IRREG, NO MURMER NOTED. PER TELE: A FLUTTER RATE 100. LUNGS WHEEZY T/O.. REWP EASY UNLABOREDL ON 6L N/C HI FLOW. BT X4 LAST BM THIS AM. ABD LARGE FIRM, VOIDS PER URINAL. ALSO SBA TO BATHROOM. BED IN LOW POSITION,,CALL LITE IN REACH, BED ALARM ON FOR SAFETY.
--- NOTE | 2018-03-29 19:36 | NUR ---
PT PLEASANT TODAY. SPENDS MOST OF TIME WITH O2 IN MOUTH. DR ORDERED XRAY OF CHEST TODAY. NO CHANGES IN O2 USE. NO OTHER CONCERNS NOTED. BED IN LOW POSITION, CALL LITE IN REACH, BED ALARM ON FOR SAFETY
--- NOTE | 2018-03-30 03:56 | NUR ---
SHIFT SUMMARY NO APPARENT ACUTE CHANGES NOTED SO FAR THIS SHIFT. PT CONTINUES TO HAVE A VERY GOOD APPETITE REQUESTING MULTIPLE SNACKS THROUGHOUT THE NIGHT. PT CONTINUES TO NEED 6 L O2 AND WEAR IN MOUTH. PT DID NOT APPEAR TO HAVE ANY DECREASE IN O2 SATS SO FAR THIS SHIFT. PT DID REPORT TO MOLECULAR BIOLOGY DIRECTOR THIS SHIFT THAT PT APPARENTLY ACCIDENTLY DRANK SOME OF HIS OWN URINE. IT IS UNCLEAR HOW PT WAS ABLE TO MISTAKE URINAL FOR FOAM CUP WITH A STAW OR HOW MUCH URINE THE PT DRANK. NO APPARENT ADVERSE REATION NOTED AT THIS TIME. WILL CONTINUE TO MONITOR. PT APPEARS TO BE SLEEP COMFORTABLY WITH NO APPARENT SIGNS OF ACUTE DISTRESS. ABLE TO MAKE NEEDS KNOWN AND CALL LIGHT IN REACH.
--- NOTE | 2018-03-30 08:00 | NUR ---
PT A/O VERY PLEASANT TALKATIVE. DENIES PAIN. MOSTLY USES O2 IN MOUTH. LYING IN BED AT THIS MOMENT. H/R REG, NO MURMER NOTED. PER TELE JUST FLIPPED FROM A-FLUTTER TO NSR APPROX [address] LYONS OF CHANGE. LUNGS WHEEZY T/O IS NOW ON 3L 02. PT USES N/C IN MOUTH MOST OF TIME. RESP EASY, UNLABORED. ABD IS LARGE FIRM. BT X4 LAST BM YEST. VOIDS URINAL AT BEDSIDE. SBA TO BATHROOM. BED IS IN LOW POSITIOIN, CALL LITE IN REACH, BED ALARM ON FOR SAFETY
--- NOTE | 2018-03-30 13:21 | NUR ---
patient gave permission for assistant director of nursing to participate in care.
--- NOTE | 2018-03-30 15:45 | NUR ---
PT PLEASANT COOP ALERT ORIENTED TODAY. DENIES PAIN. DID JUST TURN O2 BACK UP TO 4L SATS <85%. NOW RETURNED UP TO 4L AND IS >90%. NO OTHER CONCERN AT THIS TIME. BED IN LOW POSITION, CALL LITE IN REACH, BED ALARM ON FOR SAFETY
--- NOTE | 2018-03-30 23:35 | NUR ---
PT HAS O2 TUBING IN MOUTH, AND ALYSIA WRAP WRAPPED AROUND CHIN TO BACK OF NECK. EXPLAINED TO PATIENT THIS IS A CIRCULATION/AIRWAY RISK, AND HE RESPONDS WITH, "I DONT CARE IM GOING TO DO IT".
--- NOTE | 2018-03-31 06:08 | NUR ---
SHIFT SUMMARY: PT A&O, PLEASANT, AND COOPERATIVE c CARE. TELE IN PLACE, CONT TO BE @ NSR IN THE 80s. NO ARRHYTHYMIAS PER PROTECTIVE SIGNAL INSTALLER. 1+ EDEMA TO BLE. LS WHEEZE T/O. ON 4L VIA NC; OF WHICH HE PLACES IN HIS MOUTH AND WRAPS ALYSIA BANDAGE AROUND TO SECURE IN PLACE. DISCUSSED c PT THAT THIS IS A AIRWAY RISK HOWEVER HE DISREGARDED AND CONT TO DO SO (SEE PRIOR NOTE). BECOMES SOB c ANY EXERTION. SBA; BED ALARM ON FOR SAFETY. KIET SKIN; PT STATES BASELINE. DENIES PAIN. 1 EPISODE OF ANXIETY, STATES "IM HAVING A PANIC ATTACK", PT ABLE TO OVERCOME c THERAPEUTIC COMMUNICATION. NO OTHER ACUTE CHANGES TO REPORT. WILL CONT TO MONITOR AND PROVIDE CARE UNTIL PRESUMED BY ONCOMING RN.
[2018-03-31 07:05] LABS: BASOPHILS ABSOLUTE AUTO 0.04 K/mm3 (0.00-0.23); BASOPHILS PERCENT AUTO 0 % (0-2); EOSINOPHILS ABSOLUTE AUTO 0.14 K/mm3 (0.00-0.68); EOSINOPHILS PERCENT AUTO 1 % (0-6); Hematocrit 39.3 % (37.0-53.0); Hemoglobin 11.6 g/dL (13.5-17.5); IMMATURE GRAN ABSOLUTE AUTO 0.36 K/mm3 (0.00-0.10); IMMATURE GRAN PERCENT AUTO 2 % (0-1); LYMPHOCYTES ABSOLUTE AUTO 2.82 K/mm3 (0.84-5.20); LYMPHOCYTES PERCENT AUTO 15 % (21-46); MONOCYTES ABSOLUTE AUTO 1.92 K/mm3 (0.16-1.47); MONOCYTES PERCENT AUTO 10 % (4-13); Mean Corpuscular HGB 27.5 pg (26.0-34.0); Mean Corpuscular HGB Conc 29.5 g/dL (31.5-36.5); Mean Corpuscular Volume 93 fL (80-100); Mean Platelet Volume 10.5 fL (9.1-12.4); NEUTROPHILS ABSOLUTE AUTO 13.41 K/mm3 (1.96-9.15); NEUTROPHILS PERCENT AUTO 72 % (41-73); Platelet Count 251 K/mm3 (150-400); RDW Coefficient Variation 15.8 % (11.7-14.2); RDW Standard Deviation 53.8 fL (35.1-46.3); Red Blood Cell Count 4.22 M/mm3 (4.30-5.90); White Blood Cell Count 18.69 K/mm3 (4.00-11.30)
[2018-03-31 07:29] LABS: Blood Urea Nitrogen 30 mg/dL (8-24); Bun/Creatinine Ratio 32.9 (12.0-20.0); Calcium, Blood 8.3 mg/dL (8.5-10.1); Chloride, Blood 87 mmol/L (98-108); Creatinine, Blood 0.91 mg/dL (0.60-1.20); Glomerular Filtration Rate >60 (60-); Glucose, Blood 89 mg/dL (70-99); Potassium, Blood 4.4 mmol/L (3.5-5.5); Sodium, Blood 136 mmol/L (136-145)
[2018-03-31 07:53] LABS: Anion Gap Unable to Calculate mmol/L (6-16); CO2, Blood >45 mmol/L (21-32)
--- NOTE | 2018-03-31 17:26 | NUR ---
PT A/OX3, PLEASANT AND COOPERATIVE, THE PT IS UP WITH STANDBY ASSISTANCE, THE PT IS ON O2 @ 5L/MIN, APPEARS TO BE BREATHING EASILY AT REST, THE PT WAS UP TODAY WITH RT AND AMBULATED THROOGH THE [place]ONT[place] FOR A HOME O2 EVAL, HE WILL NEED O2 AT DISCHARGE SEE RT NOTE, THE PT DENIED PAIN T/O THE DAY, CALL LIGHT IN REACH, WILL CONTINUE TO MONITOR AND ASSESS FOR CHANGES
[2018-04-01 04:59] LABS: BASOPHILS ABSOLUTE AUTO 0.04 K/mm3 (0.00-0.23); BASOPHILS PERCENT AUTO 0 % (0-2); EOSINOPHILS ABSOLUTE AUTO 0.09 K/mm3 (0.00-0.68); EOSINOPHILS PERCENT AUTO 1 % (0-6); Hematocrit 35.7 % (37.0-53.0); Hemoglobin 10.7 g/dL (13.5-17.5); IMMATURE GRAN ABSOLUTE AUTO 0.31 K/mm3 (0.00-0.10); IMMATURE GRAN PERCENT AUTO 2 % (0-1); LYMPHOCYTES ABSOLUTE AUTO 2.06 K/mm3 (0.84-5.20); LYMPHOCYTES PERCENT AUTO 11 % (21-46); MONOCYTES ABSOLUTE AUTO 1.62 K/mm3 (0.16-1.47); MONOCYTES PERCENT AUTO 8 % (4-13); Mean Corpuscular HGB 27.2 pg (26.0-34.0); Mean Corpuscular Volume 91 fL (80-100); Mean Platelet Volume 10.4 fL (9.1-12.4); NEUTROPHILS ABSOLUTE AUTO 15.52 K/mm3 (1.96-9.15); NEUTROPHILS PERCENT AUTO 79 % (41-73); Platelet Count 219 K/mm3 (150-400); RDW Coefficient Variation 16.3 % (11.7-14.2); RDW Standard Deviation 53.5 fL (35.1-46.3); Red Blood Cell Count 3.94 M/mm3 (4.30-5.90); White Blood Cell Count 19.64 K/mm3 (4.00-11.30)
--- NOTE | 2018-04-01 05:12 | NUR ---
SHIFT SUMMARY PT IS A 63 Y/O M, ADMITTED FOR HYPONATREMIA. HE IS A&O X 4, AND SBA/INDEPENDENT IN THE ROOM. THE PT IS CURRENTLY ON 5L O2 VIA NC. SATS REMAINING > 90%. ALL OTHER VITALS STABLE. PT DENIED ANY COMPLAINTS OF PAIN OR NAUSEA, BUT DID REPORT SOME MILD SOB WITH EXERTION. HE SNACKED THROUGH THE NIGHT. PT'S SKIN IS ALSO RED AND DRY OVER MOST OF HIS BODY, OR WHICH HE HAS BEEN USING LOTION. NO OTHER ACUTE CHANGES IN PT CONDITION NOTED. WILL CONTINUE TO MONITOR AND TREAT PER EMAR.
[2018-04-01 05:22] LABS: Blood Urea Nitrogen 33 mg/dL (8-24); Bun/Creatinine Ratio 38.3 (12.0-20.0); Chloride, Blood 88 mmol/L (98-108); Creatinine, Blood 0.86 mg/dL (0.60-1.20); Glomerular Filtration Rate >60 (60-); Glucose, Blood 104 mg/dL (70-99); Potassium, Blood 4.4 mmol/L (3.5-5.5); Sodium, Blood 136 mmol/L (136-145)
[2018-04-01 06:23] LABS: Anion Gap Unable to Calculate mmol/L (6-16)
[2018-04-01 06:25] LABS: CO2, Blood >45 mmol/L (21-32)
[2018-04-01 13:25] LABS: PCO2 Arterial 76.8 mmHg (35-45)
--- NOTE | 2018-04-01 14:20 | NUR ---
PCO2 CRITICAL RT DAWSON CALLED IN A CRITIAL VALUE OF PCO2 76.8. INSULATION WORKER APPRENTICE & DR. MAYES NOTIFIED. PT STATES NO CHANGES IN HOW HE IS BREATHING OR FEELING. VSS. WILL CONTINUE TO MONITOR.
--- NOTE | 2018-04-01 17:20 | NUR ---
SHIFT SUMMARY PT STATES HE IS BREATHING WELL, BUT IS ACTIVELY PURSED LIP BREATHING. CRITICAL PCO2 GATHERED TODAY. AWARE & DOES NOT SEE A NEED FOR BIPAP AT THIS TIME. PT CONTINUES TO USE 5L O2 VIA HIGH FLOW NC. SATING IN THE 90S. OTHER VITALS STABLE. NO OTHER CHANGES IN ASSESSMENT AT THIS TIME. WILL CONTINUE TO MONITOR UNTIL TURNOVER IS COMPLETE.
--- NOTE | 2018-04-01 21:01 | NUR ---
2100 LAB CALLED TO SAY THAT SPUTUM SAMPLE SENT WAS NOT OF LOWER RESPIRATORY ORIGIN. WILL NEED TO RE-COLLECT
[2018-04-02 05:38] LABS: BASOPHILS ABSOLUTE AUTO 0.03 K/mm3 (0.00-0.23); BASOPHILS PERCENT AUTO 0 % (0-2); EOSINOPHILS ABSOLUTE AUTO 0.12 K/mm3 (0.00-0.68); EOSINOPHILS PERCENT AUTO 1 % (0-6); Hematocrit 36.2 % (37.0-53.0); Hemoglobin 10.7 g/dL (13.5-17.5); IMMATURE GRAN ABSOLUTE AUTO 0.34 K/mm3 (0.00-0.10); IMMATURE GRAN PERCENT AUTO 2 % (0-1); LYMPHOCYTES ABSOLUTE AUTO 2.28 K/mm3 (0.84-5.20); LYMPHOCYTES PERCENT AUTO 13 % (21-46); MONOCYTES ABSOLUTE AUTO 1.61 K/mm3 (0.16-1.47); MONOCYTES PERCENT AUTO 9 % (4-13); Mean Corpuscular HGB 27.9 pg (26.0-34.0); Mean Corpuscular HGB Conc 29.6 g/dL (31.5-36.5); Mean Platelet Volume 10.6 fL (9.1-12.4); NEUTROPHILS ABSOLUTE AUTO 13.85 K/mm3 (1.96-9.15); NEUTROPHILS PERCENT AUTO 76 % (41-73); Platelet Count 239 K/mm3 (150-400); RDW Coefficient Variation 16.5 % (11.7-14.2); RDW Standard Deviation 56.8 fL (35.1-46.3); Red Blood Cell Count 3.84 M/mm3 (4.30-5.90); White Blood Cell Count 18.23 K/mm3 (4.00-11.30)
[2018-04-02 05:39] LABS: Mean Corpuscular Volume 94 fL (80-100)
--- NOTE | 2018-04-02 05:51 | NUR ---
SHIFT SUMMARY A/O X3, ABLE TO MAKE NEEDS KNOWN. COOPERATIVE WITH CARE. CALLS AND ANSWERS QUESTIONS APPROPRIATELY. NO C/O PAIN/DISCOMFORT THIS SHIFT. BREATHING REMAINS TACHYPNEIC WITH PURSED LIP AND ACCESSORY MUSCLE USE. CONTINUES ON 4L VIA NC, SATING @ 93%. HR FLUCTUATING TELEMETRY STATED THAT PT CONVERTED TO AFIB @ 0420 AND CONVERTED BACK @ 0528 TO NSR WITH PAC @ 77. APPEARED TO REST MINIMALLY. IV ABX ADMINISTERED WITHOUT COMPLICATION TO 20 G IN R HAND. NO OTHER ACUTE CHANGES OVERNIGHT. BED IN LOWEST POSITION. CALL LIGHT AND BELONGINGS WITHIN REACH. WCTM. REPORT TO ONCOMING RN.
[2018-04-02 06:03] LABS: Albumin, Blood 3.2 g/dL (3.4-5.0); Anion Gap 4 mmol/L (6-16); Blood Urea Nitrogen 30 mg/dL (8-24); Bun/Creatinine Ratio 34.9 (12.0-20.0); CO2, Blood 41 mmol/L (21-32); Calcium, Blood 8.2 mg/dL (8.5-10.1); Chloride, Blood 90 mmol/L (98-108); Creatinine, Blood 0.86 mg/dL (0.60-1.20); Glomerular Filtration Rate >60 (60-); Glucose, Blood 110 mg/dL (70-99); Phosphorus, Blood 4.2 mg/dL (2.5-4.9); Potassium, Blood 4.8 mmol/L (3.5-5.5); Sodium, Blood 135 mmol/L (136-145)
--- NOTE | 2018-04-02 16:32 | NUR ---
SHIFT SUMMARY- PT DENIES PAIN. DENIES N/V. DENIES SOB AT REST. DYSPNEA UPON EXERTION. 93% ON 4 1/2 L O2 NC. EXP. WHEEZE T/O. PT'S BP 165/79 THIS PM. MEDS GIVEN PER EMAR. WILL CONTINUE TO MONITOR. NSR WITH PACS AND PVCS AT 75 PER PCU LABORER SHELLFISH PROCESSING. NO OTHER SIGNIFICANT CHANGES THIS SHIFT.
--- NOTE | 2018-04-02 21:32 | NUR ---
04/02/182119 PAGED HOSPITALIST, DR ELKINS ABOUT PT CONVERTING TO ATRIAL FIB AT 151 PER GENERAL INTERN. INFORMED OF VITALS AND PT C/0 SOB. PT STATES HE HAS BEEN SOB BUT FEELS BETTER THIS MARGARITA WITH VENTI-MASK AT 4 LITERS/MIN. PT ALSO SEEMS ANXIOUS THIS SHIFT SINCE REPORT WITH FREQUENT NURSE CALLS FOR MINOR ISSUES.
--- NOTE | 2018-04-03 04:17 | NUR ---
04/03/18 0115 PT CONTINUES TO BE IN ATRIAL FIB WITH RATE FROM 130'S-140'S. SOME SOB "USUAL". VENTI-MASK INCREASED TO 6 LPM O2 SATS DOWN AROUND 84-86. RESP. AQUACULTURE AND FISHERIES PROFESSORLAVINIA. INFORMED. SEE ORDERS FOR LOPRESSOR IV PRN AND IT WAS GIVEN ABOUT 0200. PT CONTINUES TO REMOVE O2 MASK OFF FOR FREQUENT ORAL INTAKE OF FOOD AND FLUIDS.
[2018-04-03 05:28] LABS: BASOPHILS ABSOLUTE AUTO 0.04 K/mm3 (0.00-0.23); BASOPHILS PERCENT AUTO 0 % (0-2); EOSINOPHILS ABSOLUTE AUTO 0.13 K/mm3 (0.00-0.68); EOSINOPHILS PERCENT AUTO 1 % (0-6); Hematocrit 37.4 % (37.0-53.0); Hemoglobin 11.1 g/dL (13.5-17.5); IMMATURE GRAN ABSOLUTE AUTO 0.28 K/mm3 (0.00-0.10); IMMATURE GRAN PERCENT AUTO 2 % (0-1); LYMPHOCYTES PERCENT AUTO 11 % (21-46); MONOCYTES ABSOLUTE AUTO 1.59 K/mm3 (0.16-1.47); MONOCYTES PERCENT AUTO 8 % (4-13); Mean Corpuscular HGB 27.6 pg (26.0-34.0); Mean Corpuscular HGB Conc 29.7 g/dL (31.5-36.5); Mean Corpuscular Volume 93 fL (80-100); Mean Platelet Volume 10.4 fL (9.1-12.4); NEUTROPHILS ABSOLUTE AUTO 15.04 K/mm3 (1.96-9.15); NEUTROPHILS PERCENT AUTO 78 % (41-73); Platelet Count 238 K/mm3 (150-400); RDW Coefficient Variation 16.8 % (11.7-14.2); Red Blood Cell Count 4.02 M/mm3 (4.30-5.90); White Blood Cell Count 19.18 K/mm3 (4.00-11.30)
[2018-04-03 06:16] LABS: Albumin, Blood 3.3 g/dL (3.4-5.0); Anion Gap 2 mmol/L (6-16); Blood Urea Nitrogen 28 mg/dL (8-24); Bun/Creatinine Ratio 39.3 (12.0-20.0); CO2, Blood 42 mmol/L (21-32); Calcium, Blood 8.1 mg/dL (8.5-10.1); Chloride, Blood 90 mmol/L (98-108); Creatinine, Blood 0.71 mg/dL (0.60-1.20); Glomerular Filtration Rate >60 (60-); Glucose, Blood 110 mg/dL (70-99); Potassium, Blood 4.9 mmol/L (3.5-5.5); Sodium, Blood 134 mmol/L (136-145)
--- NOTE | 2018-04-03 07:40 | NUR ---
04/03/18 0630 VERY BUSY NIGHT WITH HEART RATE BEING HIGH AND FREQUENT DEMANDS FOR FOOD AND DRINKS. VITALS TAKEN OFTEN TO MONITOR PT. PT NON-COMPLIANT WITH PLAN OF CARE. TAKES VENTI-MASK OFF "TO GET A DRINK!" OFTEN. SEE MAR FOR MEDS GIVEN. HEART MONITOR REMAINS ATRIAL FIB IN 130-140 RANGE THIS AM. TOO SOON FOR MORE MEDS. NO PAIN STATED.
[2018-04-03 08:06] LABS: PO2 Arterial 76.2 mmHg (80-100); pH Blood Arterial 7.22 (7.35-7.45)
[2018-04-03 08:07] LABS: PCO2 Arterial > 106 mmHg (35-45)
--- NOTE | 2018-04-03 09:06 | NUR ---
ASSUMED CARE / TX TO ICU: REPORT RECEIVED FROM LAURA Colbert RN ON MED FLOOR. PT ARRIVED TO ICU-10 AT APPROX 0845. HE IS TX TO BED W/ SLIDER & 5 STAFF ASSIST. BIPAP IN PLACE ON ARRIVAL TO UNIT, SETTINGS: 16/8, 50% FiO2 & BACK-UP RATE 14. HE IS TOLERATING THIS WELL AT THE TIME & IS LETHARGIC BUT AWAKE. LS ARE DIM T/O, O2 SATS > 92%. THE PT CONVERTED TO AFIB LAST NIGHT, HR CURRENTLY 140s. PT IS ALSO HYPERTENSIVE W/ SBP 170s. BT x4. CONDOM CATH PLACED PT IS UNABLE TO EFFECTIVELY USE URINAL AT THIS TIME. SINCE ARRIVAL, HE HAS ATTEMPTED TO REMOVE BIPAP BUT IS EASILY REDIRECTABLE. DR. HILL HAS BEEN NOTIFIED OF PT's ARRIVAL TO UNIT. PULMO HAS PREVIOUSLY BEEN CONSULTED BUT ALREADY SIGNED OFF. HE STS WE DO NOT NEED TO PLACE A NEW CONSULT ORDER AT THIS TIME.
--- NOTE | 2018-04-03 10:38 | NUR ---
0720 PT ASSESSED. PT TACHYPNEIC, SHALOW BREATHING, LUNGS DIM WITH SLIGHT EXPIRATION WHEEZE, PT REPORTS DYSPNEA. PT ON 8L O2 AT 40% FIO2 VIA VENTI MASK, SPO2 82-85%. PER TELE PT IS AFULTTER SUSTAINING 150 BPM, PULSE IRREGULAR. PT CONVERTED TO AFIB DURING NOC SHIFT. BLE EDEMA +2, GENERALIZED EDEMA +1. 0727 PO SCHEDULED MEDS GIVEN. NOTIFIED RT OF RESPIRATORY DISTRESS. 0735 RT IN TO EVALUATE PT, INCREASED VENTI MASK TO 14L O2 50% FIO2 VIA VENTI MASK. [address] BETANCOURT, RECIEVED ORDERS FOR STAT ABG. NEW IV STARTED TO L FA. IV METOPROLOL 5MG GIVEN. 0750 ABG DRAWN. 0800 CRITICAL RESULTS REPORTED TO DR. BETANCOURT, RECIEVED ORDERS TO TRANSFER TO ICU AND PLACE PT ON BIPAP. 0815 PT BEING SET UP ON BIPAP IN ROOM, REPORT GIVEN TO PATRICK JACKSON RN IN ICU. 0833 PT TRANSFERED TO ICU VIA BED ON BIPAP WITH MONITOR AND TELE. TERADATA DEVELOPER NOTIFIED OF TRANSFER.
--- NOTE | 2018-04-03 14:45 | NUR ---
UPDATE: CONDOM CATH WAS PLACED ON PT AT ARRIVAL TO UNIT, HE WAS UNABLE TO VOID USING THIS FOLLOWING LASIX ADMIN & STS HE NEEDS TO STAND TO VOID. HE IS STEADY WHILE STANDING AT BEDSIDE W/ 1 ASSIST & VOIDS USING URINAL W/O DIFFICULTY. HE ATTEMPTED TO CLIMB OOB & STATED HE WOULD LIKE TO SIT IN THE CHAIR, A RECLINER WAS BROUGHT INTO THE ROOM & THE PT WAS ABLE TO STAND/AMBULATE TO THE CHAIR W/ 1 ASSIST. HE HAS WORN HIS BIPAP MASK W/ ONLY MINIMAL BREAKS TO SIP WATER OR APPLY MOUTH MOISTURIZER VIA SWAB. HE REMAINS UP IN THE RECLINED CHAIR & IS RESTING QUIETLY. WILL CONTINUE TO MONITOR & UPDATE NEEDED.
[2018-04-03 15:55] LABS: PCO2 Arterial 77.3 mmHg (35-45); pH Blood Arterial 7.39 (7.35-7.45)
--- NOTE | 2018-04-03 17:07 | NUR ---
Assumed care of the patient at this time from Eli Decker RN. The pt is sitting up in bed, wearing the bipap. Appears to be sleeping comfortably, HOB elevated at least 45 degrees.
--- NOTE | 2018-04-03 19:15 | NUR ---
ASSUMING CARE OF PT AT THIS TIME. PT REPORT RECEIVED AT BEDSIDE WITH OFFGOING NURSE, PRIYA BROCK. PT LAYING IN BED, SLEEPING UPON ENTERING THE ROOM. VS STABLE - SEE VS FS. PT ON 4L NC. PT DOES NOT APPEAR TO BE IN DISTRESS AT THIS TIME. WILL REVIEW PLAN OF CARE.
--- NOTE | 2018-04-03 19:30 | NUR ---
ASSESSMENT PT SLEEPING UPON ENTERING THE ROOM. PT CALM, QUIET, COOPERATIVE, RESPONDS TO VERBAL STIMULI, SPONT OPENS EYES, A&O X4, GARBLED SPEECH, SLOW TO RESPOND. SENSATION ITNACT. DENIES N/T. PT WARREN. WEAKNESS NOTED. 1P SBA WITH AMBUALTON. PT TURNS SELF IN BED. PT DENIES PAIN/DISCOMFORT AT THIS TIME. EXPIRATORY WHEEZING UPPER LOBES, DIMINISHED MIDDLE AND LOWER LOBES. SHALLOW BREATHING. BREATHING TX PER RT. PT ON 4L NC. OXY SAT >90%. RR 20'S. OXY SAT <88% UPON TALKING WITH STAFF MEMBERS AND EATING. DYSPNEA WITH EXERTION. BIPAP 16/8, FIO2 25%. OCC NONPRODUCTIVE COUGH. AFEBRILE. NSR WITH OCC PAC'S AND PVC'S. HR 80'S. BP STABLE - SEE VS FS. STRONG RADIAL PULSES, FAINT TIBIAL AND PEDAL PULSES. WARM, PINK, DRY SKIN. EDEMA NOTED. ACTIVE BT X4 QUADRATNS. ABD SEVERE DIST. PT STATES ABD DIST IS NORMAL. ABD FIRM, NONTENDER. NO N/V. NO BM. PT VOIDS IN URINAL WITH ASSISTANCE - DARK, YELLOW URINE NOTED. PIV X2 - SL.
--- NOTE | 2018-04-03 21:40 | NUR ---
DR. HILL PT CONVERTED TO AFIB. HR 90'S TO 130'S. CALLED DR. HILL AT THIS TIME. UPDATED DR. HILL REGARDING PT'S STATUS. PT ON BIPAP 21/10, FIO2 30%. DR. HILL INSTRUCTED TO CONT BIPAP. PER DR. HILL, PT CONVERTED BACK TO NSR THIS AM AFTER WEARING BIPAP. DR. HILL ALSO ORDERED CARDIZEM PRN FOR HR >120, BUT DR. HILL INSTRUCTED WAIT ON ADMINSITERING CARDIZEM AT THIS TIME. INSTEAD, DR. HILL INSTRUCTED TO UTILIZE BIPAP.
--- NOTE | 2018-04-03 22:00 | NUR ---
AFIB / HR 150'S TO 160'S PT ON BIPAP 16/, FIO2 30%. PT SLEEPING UPON ENTERING THE ROOM. AFIB. HR 150'S TO 160'S. PT ATTEMPTED TO BEAR DOWN AND BLOW ON SYRINGE. HR REMAINED 150'S TO 160'S. CARDIZEM PRN ADMINISTERED. PT REMAINS IN AFIB. HR 120'S TO 130'S.
[2018-04-04 03:33] LABS: BASOPHILS ABSOLUTE AUTO 0.01 K/mm3 (0.00-0.23); BASOPHILS PERCENT AUTO 0 % (0-2); EOSINOPHILS PERCENT AUTO 0 % (0-6); Hematocrit 35.5 % (37.0-53.0); Hemoglobin 10.8 g/dL (13.5-17.5); IMMATURE GRAN ABSOLUTE AUTO 0.11 K/mm3 (0.00-0.10); IMMATURE GRAN PERCENT AUTO 1 % (0-1); LYMPHOCYTES ABSOLUTE AUTO 0.36 K/mm3 (0.84-5.20); LYMPHOCYTES PERCENT AUTO 3 % (21-46); MONOCYTES ABSOLUTE AUTO 0.37 K/mm3 (0.16-1.47); MONOCYTES PERCENT AUTO 3 % (4-13); Mean Corpuscular HGB 28.1 pg (26.0-34.0); Mean Corpuscular HGB Conc 30.4 g/dL (31.5-36.5); Mean Corpuscular Volume 92 fL (80-100); Mean Platelet Volume 10.1 fL (9.1-12.4); NEUTROPHILS ABSOLUTE AUTO 12.75 K/mm3 (1.96-9.15); NEUTROPHILS PERCENT AUTO 94 % (41-73); Platelet Count 236 K/mm3 (150-400); RDW Coefficient Variation 17.1 % (11.7-14.2); RDW Standard Deviation 57.3 fL (35.1-46.3); Red Blood Cell Count 3.85 M/mm3 (4.30-5.90)
[2018-04-04 03:48] LABS: Albumin, Blood 2.9 g/dL (3.4-5.0); Anion Gap 6 mmol/L (6-16); Blood Urea Nitrogen 34 mg/dL (8-24); CO2, Blood 42 mmol/L (21-32); Calcium, Blood 8.1 mg/dL (8.5-10.1); Chloride, Blood 88 mmol/L (98-108); Creatinine, Blood 0.71 mg/dL (0.60-1.20); Glomerular Filtration Rate >60 (60-); Glucose, Blood 188 mg/dL (70-99); Phosphorus, Blood 3.5 mg/dL (2.5-4.9); Potassium, Blood 4.4 mmol/L (3.5-5.5); Sodium, Blood 136 mmol/L (136-145)
--- NOTE | 2018-04-04 04:31 | NUR ---
SHIFT ASSESSMENT PT SLEPT T/O SHIFT. PT OCC ANXIETY NOTED THIS AM THAT RESOLVED AFTER TITRATING PRECEDEX DRIP TO EFFECT. OTHERWISE, PT REMAINED CALM T/O SHIFT. PT QUIET, COOPERATIVE, RESPONDS TO VERBAL STIMULI, SPONT OPENS EYES, A&O X4, GARBLED SPEECH, SLOW TO RESPOND. SENSATION INTACT. DENIES N/T. PT WARREN. WEAKNESS NOTED. 1P SBA WITH AMBULATION. PT ABLE TO TURN SELF IN BED. PT DENIED PAIN/DISCOMFORT NOTED T/O SHIFT. PRECEDEX DRIP STARTED THIS AM FOR ANXIETY AND TO TOLERATE BIPAP. PRECEDEX DRIP 0.2 MCG/KG/HR - CONT TO TITRATE TO EFFECT. OCC EXPIRATORY WHEEZING IN UPPER LOBES NOTED. LUNGS CLEAR WITH BREATHING TX. DIMINISHED MIDDLE AND LOWER LOBES. SHALLOW BREATHING. PT ON 4L NC WHILE OFF BIPAP. OXY SAT REMAINED 90% AND GREATER WHILE ON 4L NC. OXY SAT <88% UPON TALKING WITH STAFF MEMBERS AND EATING WHILE ON 4L NC. PT ON 4L FOR SHORT BREAKS FROM BIPAP T/O SHIFT. OTHERWISE, PT REMAINED ON BIPAP 16/, FIO2 CURRENTLY AT 25%. CONT TO TIRATE FIO2 TO MAINTAIN SPO2 88% - 92% PER DR. HILL. OXY SAT REMAINED 90% AND GREATER WHILE ON BIPAP. DYSPNEA WITH EXERTION. OCC NONPRODCTIVE COUGH. AFEBRILE. PT CURRENTLY NSR WITH OCC PAC'S AND PVC'S WITH HR 80'S. PT CONVERTED FROM AFIB PREVIOUSLY IN THE SHIFT AFTER ADMINISTERING CARDIZEM IV PRN AND AFTER CONTINUING TO UTILIZE BIPAP. HR 70'S TO 160'S T/O SHIFT. PT HYPERTENSIVE THIS AM (SEE VS FS). CURRENTLY SBP 140'S AFTER ADMINISTERING HYDRALAZINE IV PRN. STRONG RADIAL PULSES. FAINT TIBIAL AND PEDAL PULSES. WARM, PINK, DRY SKIN. EDEMA NOTED. ACTIVE BT X4 QUADRANTS. ABD SEVERE DIST. PT STATES ABD DIST IS NORMAL. ABD FIRM, NONTENDER. NO N/V. NO BM T/O SHIFT. PT VOIDS IN URINAL WITH ASSISTANCE - DARK, YELLOW URINE NOTED. PIV X2. NS TKO AT 10 ML/HR. WILL CONT TO MONITOR PT AND WILL PROVIDE BEDSIDE REPORT TO ONCOMING NURSE THIS AM.
[2018-04-04 05:23] LABS: PCO2 Arterial 69.2 mmHg (35-45); pH Blood Arterial 7.44 (7.35-7.45)
--- NOTE | 2018-04-04 09:54 | NUR ---
aSSISTED THE PT BACK TO BED AFTER URINATING. HE HAS BEEN UP IN THE CHAIR SINCE 0745 FOR BREAKFAST. HEART RATE 155 SUDDENLY, A FLUTTER, WITH THE ACTIVITY. RESOLVING NOW, AFLUTTER RATE 112 NOW THAT HE IS IN BED AND WEARING THE BIPAP. NO ANXIETY, APPEARS CALM AND NO EXPRESSED NEEDS EXCEPT THAT HE REALLY WANTS SOMEONE TO FIND A RESTAURANT WHERE HE CAN GET SHRIMP DELIVERED TO HIM HERE.
--- NOTE | 2018-04-04 11:20 | NUR ---
converted back to NSR. Rate is 73 bpm at this time.
--- NOTE | 2018-04-04 15:13 | NUR ---
The pt has not been willing to wear the bipap since taking if off at 1100 this morning. He is alert, oriented, hungry, and conversant. He gets agitated easily, but has calmed down with resolution to issues such as hunger, personal possessions being out of reach, difficulty making phone calls, etc. He has been wearing oxygen at 3 l/min since noon.
--- NOTE | 2018-04-04 17:09 | NUR ---
The pt c/o anxiety. Noted blood pressure also elevated. Pt agreed to use bipap for about 30 minutes to see if the anxiety would be relieved. Afterwards he said he was less anxious, but blood pressure was still elevated. Apresoline given and pressure is trending down at this time. Declined OOB to chair for dinner. SPO2 is 92% on 3 l/min n.c. delivery at this time.
--- NOTE | 2018-04-04 17:18 | NUR ---
Jorge was OOB to the chair this morning for 2 hours at breakfast time. Following standing to use the urinal, and assistance back to bed at 10am, aflutter with RVR rate 155 noted. Pt was put on BIPAP and his rate decreased to 100-120 and the pt had no distress or dyspnea. One hour and 15 minutes later he converted to normal sinus rhythm. He has no further episodes of aflutter today. He did have elevated blood pressure requiring PRN apresoline once this evening at 5 pm. Appetite good, alert, oriented, cooperative, and voiding using the urinal. Swelling of extremities noted decreasing; swelling of penis remains very significant, but the pt has denied any pain.
--- NOTE | 2018-04-04 18:10 | NUR ---
Jorge said that he was having a panic attack. Appears to be dyspneic, but not hypoxic while lying in bed after dinner wearing O2 delivery by n.c. @ 3 l/min. Suggested trying the bipap to allow him to rest from the work of breathing. He readily agreed to this suggestion, and has now been tolerating the bipap for about 15 minutes while watching TV in bed. He is visibly more relaxed and breathing at 22 breaths /minute.
--- NOTE | 2018-04-04 19:13 | NUR ---
Report given to Dalia Marquez RN at this time.
--- NOTE | 2018-04-04 20:08 | NUR ---
CARE ASSUMED/BIPAP COMPLIANCE/CARDIAC RHYTHMS REPORT RECEIVED, CARE ASSUMED AT 1900. PT ALERT AND ORIENTED. RR ELEVATED, PT BREATHING THROUGH MOUTH, PT ON 3 LPM NASAL CANNULA 02 SAT IN HIGH 80'S. ENCOURAGED BIPAP USE, PT WORE FOR 3 MINUTES AND THEN TOOK OFF SPONTANEOUSLY. REINFORCED EDUCATION ABOUT USE OF BIPAP AND PT DECLINED TO WEAR. PT INITIALLY NSR, AFTER A FEW MINUTES OFF OF BIPAP PT NOTED TO BE IN AFLUTTER, HR FROM 100'S-150'S. PT RE-EDUCATED ON USE OF BIPAP AND AGREEABLE TO PLACE BIPAP ON. HR BACK TO NSR WITH PVC'S WITHIN 20 MINUTES OF BIPAP PLACEMENT. WILL CONTINUE TO REINFORCE EDUCATION AND IMPORTANCE OF BIPAP USE.
--- NOTE | 2018-04-04 21:09 | NUR ---
BIPAP UPDATE SINCE PREVIOUS NOTE, PT HAS TOLERATED BIPAP. AT THIS TIME REQUESTING BREAK, BREAK PROVIDED AND PT PLACED ON 3 LPM. AGAIN EDUCATED PT ON USE OF BIPAP AND PT BECOMES ANGRY STATING, "THE DOCTOR NEVER TOLD ME I NEED TO WEAR IT ALL NIGHT." REINFORCED THAT THIS WAS PHYSICIAN'S ORDER BUT THAT BREAKS ARE ACCEPTABLE. PT ANXIOUS, SUPPORT PROVIDED AND BREAK CONTINUES.
[2018-04-05 03:41] LABS: BASOPHILS ABSOLUTE AUTO 0.02 K/mm3 (0.00-0.23); BASOPHILS PERCENT AUTO 0 % (0-2); EOSINOPHILS PERCENT AUTO 0 % (0-6); Hematocrit 35.1 % (37.0-53.0); IMMATURE GRAN ABSOLUTE AUTO 0.09 K/mm3 (0.00-0.10); IMMATURE GRAN PERCENT AUTO 1 % (0-1); LYMPHOCYTES ABSOLUTE AUTO 0.37 K/mm3 (0.84-5.20); LYMPHOCYTES PERCENT AUTO 2 % (21-46); MONOCYTES ABSOLUTE AUTO 0.77 K/mm3 (0.16-1.47); MONOCYTES PERCENT AUTO 4 % (4-13); Mean Corpuscular HGB 27.7 pg (26.0-34.0); Mean Corpuscular HGB Conc 31.3 g/dL (31.5-36.5); Mean Corpuscular Volume 88 fL (80-100); Mean Platelet Volume 10.4 fL (9.1-12.4); NEUTROPHILS ABSOLUTE AUTO 16.61 K/mm3 (1.96-9.15); NEUTROPHILS PERCENT AUTO 93 % (41-73); Platelet Count 260 K/mm3 (150-400); RDW Coefficient Variation 17.3 % (11.7-14.2); RDW Standard Deviation 54.9 fL (35.1-46.3); Red Blood Cell Count 3.97 M/mm3 (4.30-5.90); White Blood Cell Count 17.86 K/mm3 (4.00-11.30)
[2018-04-05 04:03] LABS: Anion Gap 4 mmol/L (6-16); Blood Urea Nitrogen 33 mg/dL (8-24); Bun/Creatinine Ratio 43.2 (12.0-20.0); CO2, Blood 41 mmol/L (21-32); Calcium, Blood 8.2 mg/dL (8.5-10.1); Chloride, Blood 91 mmol/L (98-108); Creatinine, Blood 0.76 mg/dL (0.60-1.20); Glomerular Filtration Rate >60 (60-); Glucose, Blood 206 mg/dL (70-99); Phosphorus, Blood 2.8 mg/dL (2.5-4.9); Potassium, Blood 4.2 mmol/L (3.5-5.5); Sodium, Blood 136 mmol/L (136-145)
--- NOTE | 2018-04-05 04:39 | NUR ---
AFLUTTER WHILE PT RESTING QUIETLY ON BIPAP, HR CONVERTED TO AFLUTTER RATE IN THE 150'S-160'S AND SUSTAINED. ADMIN OF IV DILTIAZEM AND RATE IMPROVED TO 110'S, RHYTHM CONTINUES TO BE AFLUTTER.
--- NOTE | 2018-04-05 06:35 | NUR ---
SUMMARY SINCE PREVIOUS NOTE, PT'S HEART RHYTHM CONTINUES TO BE AFIB/AFLUTTER. RATE 100'S-120'S. BP ELEVATED, HYDRALAZINE ADMIN AND BP IMPROVED. PT HAS TOLERATED BIPAP INTERMITTENTLY BUT REQUESTING FREQUENT BREAKS. PT CONTINUOUSLY EDUCATED THROUGHOUT NIGHT. PT ALSO REFUSING ALL ADL'S EXCEPT MARYBEL-CARE THIS MORNING, REGARDLESS OF POOR HYGEINE AND REPEATED EDUCATED. PT ALSO REPORTING INTERMITTENT "ANXIETY ATTACKS," IN WHICH CASE, HE IS SLIGHTLY TACHYPNEIC BUT 02 SAT'S SUSTAINED AT GOAL. ATTACKS RESOLVE QUICKLY WITH DISTRACTION AND REASSURANCE. EDEMA THROUGHOUT BODY NOTED TO BE IMPROVED THROUGHOUT NIGHT, SEE ASSESSMENTS. SEE VITALS FLOWSHEET.
--- NOTE | 2018-04-05 08:03 | NUR ---
CARE ASSUMED CARE AND REPORT ASSUMED FROM KAELYN BROCK. PT AWAKE, A/O X3, CALM AND APPROPRIATE. DENIES PAIN AT THIS TIME. SITTING UP IN BED WATCHING TV. AFIB, HR 100-120. TOOK AM PILLS WITHOUT ANY DIFFICULTY. BP STABLE. SPO2 92% ON 3L NC. IV SALINE LOCKED. WILL CONTINUE TO MONITOR.
[2018-04-05 09:18] LABS: Vancomycin, Trough 15.2 ug/mL (5.0-10.0)
--- NOTE | 2018-04-05 12:38 | NUR ---
REASSESSMENT NO CHANGES SINCE PRIOR ASSESSMENT. PT CALM AND COOPERATIVE, A/O X3. DENIES PAIN AT THIS TIME. VSS. AFIB, HR 90-110. BP STABLE. TOLERATING 3L NC, SPO2 92%. PLEASANT AND WATCHING TV. WILL CONTINUE TO MONITOR.
--- NOTE | 2018-04-05 17:57 | NUR ---
SHIFT SUMMARY PT TOLERATED WEARING 3L NC ENTIRE SHIFT WITH SPO2 90-93%. DENIED PAIN ENTIRE SHIFT. CALM, COOPERATIVE, AND SOCIAL WITH ALL STAFF. VSS ENTIRE SHIFT. REMAINS IN AFIB. SAT IN CHAIR FOR FEW HOURS THIS AFTERNOON. RECIEVED BEDBATH AND LINEN CHANGE. PCU STATUS; AWAITING ROOM ASSIGNMENT. WILL GIVE BEDSIDE, REPORT TO KARLA RN.
--- NOTE | 2018-04-05 19:12 | NUR ---
[place] was personable and quite talkative. He told me about his life and that hardships he has endured since childhood. Currently, he is homeless, but wishes he wasn't. He is worried about being discharged back to the street. He is not adventist, but welcomed companionship and theraputic listening. He does not feel he will get much better, and tells me he accepts this path. He does appear quite lonely. He would benefit from continued drug abuse counselor and support. I will remain available.
--- NOTE | 2018-04-05 19:26 | NUR ---
CARE ASSUMED REPORT RECEIVED, CARE ASSUMED. PT ALERT, ORIENTED, CALM AND COOPERATIVE. DISCUSSED PLAN FOR NIGHT TO INCLUDE ADL'S AND USE OF BIPAP, AND PT STATES, "OK, I WILL TRY MY BEST." PT REQUESTING SNACK BEFORE ORAL CARE AND BIPAP, SNACK PROVIDED. VITALS STABLE. SEE ASSESSMENT.
--- NOTE | 2018-04-05 22:10 | NUR ---
BIPAP COMPLIANCE - DR. RAMIREZ COMMUNICATION CALLED INTO ROOM BY PATIENT, PT YELLING "TAKE THIS BIPAP OFF." BIPAP REMOVED, 3 L NC PLACED. PT STATES, "YOU ONLY SAID I HAVE TO BE ON THIS FOR AN HOUR MARGOT BEEN ON FOR TWO HOURS." RE-EDUCATED PT ON NEED FOR AND PURPOSE OF BIPAP. PT ANGRY, STATES, "YOU SAID YOU WOULD BRING ME A SNACK AT 10," REMINDED PT OF INITIAL PLAN CREATED AT BEGINNING OF SHIFT. ALLOWING FOR BIPAP BREAK FOR DE-ESCALATION AND WILL PROVIDE SNACK PER PATIENT REQUEST. DR. RAMIREZ IN UNIT AND STATES TO ENCOURAGE BIPAP USE AND EDUCATE PATIENT BUT NOT IF IT ESCALATES PATIENT HIS TRANSITION OUT OF ICU AND INTO COMMUNITY WITH REQUIRE SELF-REGULATION OF RESPIRATORY INTERVENTIONS. WILL CONTINUE TO EDUCATE AND ENCOURAGE PATIENT TOLERATED.
--- NOTE | 2018-04-05 23:30 | NUR ---
PCU TRANSFER PCU BED AVAILABLE. REPORT TO VINOD NASH. PT UPDATED ON PLAN AND AGREEABLE.
--- NOTE | 2018-04-05 23:50 | NUR ---
PT TO PCU PT TO PCU ON 3 LPM NASAL CANNULA. PT STAND AND TRANSFER TO PCU BED. CHARITY RN AND LOU RT AT BEDSIDE UPON TRANSFER.
[2018-04-06 04:11] LABS: BASOPHILS ABSOLUTE AUTO 0.02 K/mm3 (0.00-0.23); BASOPHILS PERCENT AUTO 0 % (0-2); EOSINOPHILS PERCENT AUTO 0 % (0-6); IMMATURE GRAN ABSOLUTE AUTO 0.15 K/mm3 (0.00-0.10); IMMATURE GRAN PERCENT AUTO 1 % (0-1); LYMPHOCYTES ABSOLUTE AUTO 0.44 K/mm3 (0.84-5.20); LYMPHOCYTES PERCENT AUTO 2 % (21-46); MONOCYTES PERCENT AUTO 6 % (4-13); Mean Corpuscular HGB 27.2 pg (26.0-34.0); Mean Corpuscular HGB Conc 30.6 g/dL (31.5-36.5); Mean Corpuscular Volume 89 fL (80-100); Mean Platelet Volume 10.4 fL (9.1-12.4); NEUTROPHILS ABSOLUTE AUTO 16.45 K/mm3 (1.96-9.15); NEUTROPHILS PERCENT AUTO 91 % (41-73); NRBC ABSOLUTE 0.02 K/mm3 (0.00-0.02); NRBC Auto 0.1 /100 WBC (0.0-0.2); Platelet Count 295 K/mm3 (150-400); RDW Coefficient Variation 17.3 % (11.7-14.2); RDW Standard Deviation 55.7 fL (35.1-46.3); Red Blood Cell Count 4.04 M/mm3 (4.30-5.90); White Blood Cell Count 18.06 K/mm3 (4.00-11.30)
[2018-04-06 04:39] LABS: Anion Gap 3 mmol/L (6-16); Blood Urea Nitrogen 33 mg/dL (8-24); Bun/Creatinine Ratio 41.9 (12.0-20.0); CO2, Blood 41 mmol/L (21-32); Chloride, Blood 92 mmol/L (98-108); Creatinine, Blood 0.79 mg/dL (0.60-1.20); Glomerular Filtration Rate >60 (60-); Glucose, Blood 201 mg/dL (70-99); Potassium, Blood 4.3 mmol/L (3.5-5.5); Sodium, Blood 136 mmol/L (136-145)
--- NOTE | 2018-04-06 05:27 | NUR ---
SHIFT SUMMARY PT TRANSFERED FROM ICU TO PCU AT APPROX 2340. HE WAS ALERT AND ORIENTED ON ARRIVAL AND WAS PLEASANT AND COOPERATIVE WITH STAFF. PT TOLERATED VITALS AND ASSESSMENTS WELL. HE WAS ABLE TO COMMUNICATE WELL WITH STAFF. HE USED HIS CALL LIGHT APPROPRIATELY. PT WAS ABLE TO MAKE NEEDS KNOWN AND DENIED ANY UNMET NEEDS DURING THE SHIFT. PT DID NOT SLEEP SINCE ARRIVAL, BUT DID RELAX IN BED AND WATCH TELEVISION. HE HAD A GOOD APPETITE, NO ISSUES WITH SWALLOWING OR CHEWING. PT VITALS ARE STABLE AND NO ACUTE CHANGES HAVE BEEN OBSERVED TO THESE. PT IS A STAND BY ASSIST TO BEDSIDE COMMODE. HE HAS A STEADY GAIT BUT HAS LINES THAT CAN INTERFERE WITH AMBULATION. PT HAS 2X SIDE RAILS IN PLACE, BED IN LOW POSITION AND CALL LIGHT WITHIN REACH. HE WILL CONTINUE TO BE MONITORED UNTIL HANDOFF TO DAYSHIFT RN.
--- NOTE | 2018-04-06 08:50 | NUR ---
INITIAL ASSESSMENT: Pt resting in bed. Tachypnic breathing on 3l nc. Biox 93%. Educated patient on need to use bipap at sleep. Pt states "I know I know, I just don't like being pressured". Pt educated on the need for Bipap vs. oxygen at sleep. Pt agreed to wear it after breakfast. VSS. LS with wheezing throughout. BT positive. Pulses palp, +2 edema in BLE and scrotum. Call light in reach. Will monitor.
--- NOTE | 2018-04-06 14:18 | NUR ---
UPdate: Pt has done well wearing bipap. Wore from about 1103-1902, then again from 1567-0545. Pt tolerating well and states "it didn't bother me as much and I actually slept pretty well". VSS. Call light in reach. Will monitor.
--- NOTE | 2018-04-06 20:20 | NUR ---
SHift summary: Pt did well this shift wearting the BIPAP on and off. He tolerated it again for about an hour prior to dinner. When off bipap pt on 3l NC. VSS throughout shift. HR Improved after AM medications and PT wore bipap for a few hours. HR now down to 80-90's and appears to be in more a-flutter. Pt did become aggitated this shift with his phone and necklace being missing. Assured patient that it was being looked for by my primer charger and by the ICU primer charger (both had been informed and were looking). Pt was still aggitated however and stated "you never do what you say you will!" Assured Pt we were looking for his belonings and that the would be found, but that I could not leave the unit. Belongings were brought to us about 3 hours after he first asked about them and Pt was grateful. However, Pt states that he is "going home tomorrow" and is asking how to get portable oxygen that runs on a battery and never runs out. Explained that he would get oxygen through a RX from his physician at time of discharge and that he would likely not be discharged tomorrow. States "I'm leaving tomorrow, I'll be fine". Report was given to night RN. Stable at end of shift.
[2018-04-07 04:15] LABS: BASOPHILS ABSOLUTE AUTO 0.02 K/mm3 (0.00-0.23); BASOPHILS PERCENT AUTO 0 % (0-2); EOSINOPHILS ABSOLUTE AUTO 0.04 K/mm3 (0.00-0.68); EOSINOPHILS PERCENT AUTO 0 % (0-6); Hematocrit 39.8 % (37.0-53.0); Hemoglobin 12.1 g/dL (13.5-17.5); IMMATURE GRAN ABSOLUTE AUTO 0.09 K/mm3 (0.00-0.10); IMMATURE GRAN PERCENT AUTO 1 % (0-1); LYMPHOCYTES ABSOLUTE AUTO 1.76 K/mm3 (0.84-5.20); LYMPHOCYTES PERCENT AUTO 10 % (21-46); MONOCYTES ABSOLUTE AUTO 1.59 K/mm3 (0.16-1.47); MONOCYTES PERCENT AUTO 9 % (4-13); Mean Corpuscular HGB 27.2 pg (26.0-34.0); Mean Corpuscular HGB Conc 30.4 g/dL (31.5-36.5); Mean Corpuscular Volume 89 fL (80-100); Mean Platelet Volume 10.3 fL (9.1-12.4); NEUTROPHILS ABSOLUTE AUTO 13.47 K/mm3 (1.96-9.15); NEUTROPHILS PERCENT AUTO 79 % (41-73); Platelet Count 309 K/mm3 (150-400); RDW Coefficient Variation 17.2 % (11.7-14.2); RDW Standard Deviation 55.5 fL (35.1-46.3); Red Blood Cell Count 4.45 M/mm3 (4.30-5.90); White Blood Cell Count 16.97 K/mm3 (4.00-11.30)
[2018-04-07 04:36] LABS: Albumin, Blood 3.1 g/dL (3.4-5.0); Anion Gap 6 mmol/L (6-16); Blood Urea Nitrogen 34 mg/dL (8-24); Bun/Creatinine Ratio 44.8 (12.0-20.0); CO2, Blood 38 mmol/L (21-32); Calcium, Blood 8.2 mg/dL (8.5-10.1); Chloride, Blood 93 mmol/L (98-108); Creatinine, Blood 0.76 mg/dL (0.60-1.20); Glomerular Filtration Rate >60 (60-); Glucose, Blood 112 mg/dL (70-99); Potassium, Blood 4.2 mmol/L (3.5-5.5); Sodium, Blood 137 mmol/L (136-145)
--- NOTE | 2018-04-07 06:23 | NUR ---
SHIFT SUMMARY PT ALERT AND ORIENTED X 3 THROUGHOUT SHIFT. HE WAS PLEASANT FOR THE MOST PART, THOUGH HAD SOME IRRITATION WITH STAFF WHEN ASKED TO WEAR HIS BIPAP. PT WAS NOT COMPLIANT WITH BIPAP USE DURING THE NIGHT. HE STATED THAT HE IS "TIRED OF PEOPLE TELLING HIM WHAT TO DO" AND THAT HE IS "GOING HOME TOMORROW". PT WAS ABLE TO MAKE NEEDS KNOWN AND USED HIS CALL LIGHT APPROPRIATELY. HE HAD HIS CALL LIGHT WITHIN REACH AND BED IN THE LOWEST POSITION. PT VITALS HAVE BEEN STABLE AND HE REMAINS IN LOW 90'S ON 3 LITERS O2 VIA NC. HE SLEPT OFF AND ON AND DENIED ANY COMPLAINTS OF PAIN OR DISCOMFORT. HE WILL CONTINUE TO BE MONITORED UNTIL HANDOFF TO DAYSHIFT RN.
--- NOTE | 2018-04-07 11:28 | NUR ---
PCU DAYSHIFT ASSUMED CARE OF PT APPROX. 0700. PT A&O X4 AT THIS TIME. ASSESSMENT COMPLETED, VITAL SIGNS STABLE AT THIS TIME. EIGHT SECTION BLOWER REPORTS THAT PT CALLED DESK AND REPORTS THAT HE WANTED TO LEAVE. R.T. REPORTS PT STATES HE IS READY TO LEAVE. WENT IN AND TALKED WITH PT, R.T. TALKED WITH PT AND PMD AT BEDSIDE TO TALK WITH PT ALSO ABOUT IMPORTANCE OF STAYING AT THIS TIME. PT AGREED TO STAY AT THIS TIME. PT AGREED TO WEAR OXYGEN AND TAKE MORNING MEDICATIONS. PT CURRENLTY ON 4L N.C. WITHS SATS 92. BED IN LOW POSITION, BED ALARM ON, CALL LIGHT IN REACH AND PT DENIES ANY NEEDS AT THIS TIME. WILL CONTINUE TO MONITOR.
--- NOTE | 2018-04-07 15:48 | NUR ---
Met with [place] in his room this afternoon. He is currently on 3 liters of O2 via NC. He reports that his SOB has improved since yesterday. He has used his bipap machine off and on today per his report. He reports he is feeling better. He states he is hungry. 1/2 sandwich and a soda given to pt per his request. He reports that he has been treated for anxiety for many years. He feels his anti-anxiety medications help. We talked about non-pharmacological ways he could help manage his anxiety. He was pleasant during our visit and is no longer wanting to leave [facility] at this time.
--- NOTE | 2018-04-07 19:49 | NUR ---
SHIFT SUMMARY PT PLEASANT, COOPERATIVE AND USES CALL LIGHT APPROPRIATELY. AFTER STAFF HAD CONVERSATION WITH PT THIS MORNING PT DID NOT EXPRESS WANTING TO LEAVE AMA AFTER THIS. PT AGREED TO STAY FOR AWHILE LONGER. PT REMAINED A&O X4 T/O SHIFT. VITAL SIGNS STABLE. THROUGHOUT SHIFT PT WOULD ASK AT TIMES TO HAVE BIPAP PLACED. OTHERWISE PT WAS ON 3-4L OXYGEN VIA NASAL CANULA WITH OXYGEN SATS IN 90'S WITH THIS. PT ASSESSMENT FINDING REMAIN UNCHANGED FROM MORNING. PT USED URINAL NEEDED TODAY. BED IN LOW POSITION, BED ALARM ON, CALL LIGHT IN REACH AND PT DENIES ANY NEEDS AT THIS TIME. WILL CONTINUE TO MONITOR UNTIL HANDOFF TO NIGHTSHIFT RN.
[2018-04-08 04:20] LABS: BASOPHILS ABSOLUTE AUTO 0.01 K/mm3 (0.00-0.23); BASOPHILS PERCENT AUTO 0 % (0-2); EOSINOPHILS ABSOLUTE AUTO 0.09 K/mm3 (0.00-0.68); EOSINOPHILS PERCENT AUTO 1 % (0-6); Hematocrit 38.4 % (37.0-53.0); Hemoglobin 11.7 g/dL (13.5-17.5); IMMATURE GRAN ABSOLUTE AUTO 0.09 K/mm3 (0.00-0.10); IMMATURE GRAN PERCENT AUTO 1 % (0-1); LYMPHOCYTES ABSOLUTE AUTO 1.72 K/mm3 (0.84-5.20); LYMPHOCYTES PERCENT AUTO 12 % (21-46); MONOCYTES ABSOLUTE AUTO 0.91 K/mm3 (0.16-1.47); MONOCYTES PERCENT AUTO 7 % (4-13); Mean Corpuscular HGB 27.7 pg (26.0-34.0); Mean Corpuscular HGB Conc 30.5 g/dL (31.5-36.5); Mean Corpuscular Volume 91 fL (80-100); Mean Platelet Volume 10.3 fL (9.1-12.4); NEUTROPHILS PERCENT AUTO 80 % (41-73); Platelet Count 308 K/mm3 (150-400); RDW Coefficient Variation 17.1 % (11.7-14.2); RDW Standard Deviation 56.7 fL (35.1-46.3); Red Blood Cell Count 4.23 M/mm3 (4.30-5.90); White Blood Cell Count 13.92 K/mm3 (4.00-11.30)
--- NOTE | 2018-04-08 04:40 | NUR ---
SHIFT SUMMARY PT A&O X4, COMPLIANT W/ BIPAP USE T/O NIGHT, SPO2 > 90% ON BIPAP /, FIO2 30% OR 3L NC WHILE EATING SNACKS. PT HAVING TO BE REMINDED TO SLOW DOWN WHILE EATING AND TAKE DEEP BREATHS EVERY FEW BITES D/T EATING TOO QUICKLY W/ DESAT INTO LOW 80'S. PT SPO2 QUICKLY RECOVERS W/ DEEP BREATHING. EXPIRATORY WHEEZE HEARD T/O LUNGS. MONITOR SHOWS AFLUTTER, HR 90'S-120'S. PT SBA INTO BATHROOM, TOLERATING AMBULATION WELL. WILL CONTINUE TO MONITOR AND PROVIDE CARE UNTIL REPORT OFF TO DAY SHIFT RN.
[2018-04-08 04:42] LABS: Albumin, Blood 2.8 g/dL (3.4-5.0); Anion Gap 5 mmol/L (6-16); Blood Urea Nitrogen 37 mg/dL (8-24); Bun/Creatinine Ratio 42.9 (12.0-20.0); CO2, Blood 40 mmol/L (21-32); Chloride, Blood 92 mmol/L (98-108); Creatinine, Blood 0.86 mg/dL (0.60-1.20); Glomerular Filtration Rate >60 (60-); Glucose, Blood 126 mg/dL (70-99); Phosphorus, Blood 4.2 mg/dL (2.5-4.9); Potassium, Blood 4.3 mmol/L (3.5-5.5); Sodium, Blood 137 mmol/L (136-145)
--- NOTE | 2018-04-08 17:13 | NUR ---
PT'S HEART RATE ELEVATED UP INTO THE 130'S AT TIMES THIS AM. ELEVATES WHEN HE TAKES THE BIPAP OFF. PT ENCOURAGED TO WEAR HIS BIPAP T/O THE DAY. AM MEDS TAKEN WITHOUT DIFFICULTY. PT HR MORE CONTROLLED THIS AFTERNOON, 90'S TO 110'S. NO C/O PAIN OR OTHER DISCOMFORT. NO ACUTE CHANGES NOTED THIS SHIFT. WILL CONTINUE TO MONITOR AND REPORT TO ONCOMING RN.
[2018-04-09 03:53] LABS: BASOPHILS ABSOLUTE AUTO 0.01 K/mm3 (0.00-0.23); BASOPHILS PERCENT AUTO 0 % (0-2); EOSINOPHILS ABSOLUTE AUTO 0.11 K/mm3 (0.00-0.68); EOSINOPHILS PERCENT AUTO 1 % (0-6); Hematocrit 37.1 % (37.0-53.0); Hemoglobin 11.4 g/dL (13.5-17.5); IMMATURE GRAN ABSOLUTE AUTO 0.08 K/mm3 (0.00-0.10); IMMATURE GRAN PERCENT AUTO 1 % (0-1); LYMPHOCYTES ABSOLUTE AUTO 1.49 K/mm3 (0.84-5.20); LYMPHOCYTES PERCENT AUTO 10 % (21-46); MONOCYTES ABSOLUTE AUTO 1.05 K/mm3 (0.16-1.47); MONOCYTES PERCENT AUTO 7 % (4-13); Mean Corpuscular HGB 27.2 pg (26.0-34.0); Mean Corpuscular HGB Conc 30.7 g/dL (31.5-36.5); Mean Corpuscular Volume 89 fL (80-100); Mean Platelet Volume 10.1 fL (9.1-12.4); NEUTROPHILS ABSOLUTE AUTO 11.69 K/mm3 (1.96-9.15); NEUTROPHILS PERCENT AUTO 81 % (41-73); Platelet Count 310 K/mm3 (150-400); RDW Coefficient Variation 17.2 % (11.7-14.2); RDW Standard Deviation 55.7 fL (35.1-46.3); Red Blood Cell Count 4.19 M/mm3 (4.30-5.90); White Blood Cell Count 14.43 K/mm3 (4.00-11.30)
[2018-04-09 04:14] LABS: Albumin, Blood 2.8 g/dL (3.4-5.0); Anion Gap 6 mmol/L (6-16); Blood Urea Nitrogen 34 mg/dL (8-24); Bun/Creatinine Ratio 44.7 (12.0-20.0); CO2, Blood 40 mmol/L (21-32); Calcium, Blood 7.8 mg/dL (8.5-10.1); Chloride, Blood 91 mmol/L (98-108); Creatinine, Blood 0.76 mg/dL (0.60-1.20); Glomerular Filtration Rate >60 (60-); Glucose, Blood 125 mg/dL (70-99); Phosphorus, Blood 3.9 mg/dL (2.5-4.9); Potassium, Blood 4.3 mmol/L (3.5-5.5); Sodium, Blood 137 mmol/L (136-145)
--- NOTE | 2018-04-09 04:51 | NUR ---
SHIFT SUMMARY PT A&O X4, CALM AND COOPERATIVE. PT WEARING BIPAP MAJORITY OF NIGHT, SWITCHING TO 3L NC FOR SNACKS OR AMBULATION TO BATHROOM. PT INITIATING BIPAP USE, REQUESTING IT BE PUT BACK ON AFTER COMPLETION OF SNACKS OR BATHROOM USE. PT TOLERATING AMBULATION WELL W/ NO SOB. LUNG SOUNDS COARSE W/ EXPIRATORY WHEEZE. MONITOR SHOWS AFLUTTER, HR 80'S-115, SUSTAINING 80'S AFTER 2200 LAST NIGHT. PT PROVIDED W/ MULTIPLE SNACKS T/O NIGHT PER PT REQUEST. COVERAGE NOT INDICATED FOR AC & HS CBG'S THIS SHIFT PER SLIDING SCALE. PT EXPRESSES EAGERNESS TO DISCHARGE THOUGH HE STATES HE DOESN'T KNOW WHERE HE'S BEING SENT, HE STATES "IT'S LIKE A VACATION." PT APPRECIATIVE OF CARE AND FOOD PROVIDED. WILL CONTINUE TO MONITOR AND PROVIDE CARE UNTIL REPORT OFF TO DAY SHIFT RN.
--- NOTE | 2018-04-09 18:45 | NUR ---
HE HAS HAD AN UNEVENTFUL DAY. HE TOOK TYLENOL TWICE, ONCE FOR BACK PAIN AND ONCE FOR H/A. HE IS SLEEPING NOW WITH HIS BIPAP ON. HE WORE HIS BIPAP ABOUT 1/3 OF THE SHIFT. HE IS EATING MOST OF THE TIME. INSPITE OF THAT HIS HIGHEST CBG WAS 259 BEFORE BREAKFAST. HE AMBULATED THE HALLS WITH A WALKER AND O2 AND SBA X1. HE SAYS THAT IS WHAT MADE HIS BACK HURT. HE WANTED THE WALK BECAUSE HE WAS GETTING ANXIOUS LAYING IN THE BED SO LONG. VSS. NO FEVER. CONTINUOUS BIOX ON ALL DAY.
[2018-04-10 04:41] LABS: BASOPHILS ABSOLUTE AUTO 0.01 K/mm3 (0.00-0.23); BASOPHILS PERCENT AUTO 0 % (0-2); EOSINOPHILS ABSOLUTE AUTO 0.15 K/mm3 (0.00-0.68); EOSINOPHILS PERCENT AUTO 1 % (0-6); Hematocrit 36.2 % (37.0-53.0); Hemoglobin 11.2 g/dL (13.5-17.5); IMMATURE GRAN ABSOLUTE AUTO 0.11 K/mm3 (0.00-0.10); IMMATURE GRAN PERCENT AUTO 1 % (0-1); LYMPHOCYTES ABSOLUTE AUTO 1.48 K/mm3 (0.84-5.20); LYMPHOCYTES PERCENT AUTO 10 % (21-46); MONOCYTES ABSOLUTE AUTO 1.25 K/mm3 (0.16-1.47); MONOCYTES PERCENT AUTO 8 % (4-13); Mean Corpuscular HGB 27.9 pg (26.0-34.0); Mean Corpuscular HGB Conc 30.9 g/dL (31.5-36.5); Mean Corpuscular Volume 90 fL (80-100); Mean Platelet Volume 10.3 fL (9.1-12.4); NEUTROPHILS ABSOLUTE AUTO 12.06 K/mm3 (1.96-9.15); NEUTROPHILS PERCENT AUTO 80 % (41-73); Platelet Count 310 K/mm3 (150-400); RDW Coefficient Variation 17.2 % (11.7-14.2); RDW Standard Deviation 56.3 fL (35.1-46.3); Red Blood Cell Count 4.01 M/mm3 (4.30-5.90); White Blood Cell Count 15.06 K/mm3 (4.00-11.30)
[2018-04-10 04:47] LABS: Albumin, Blood 2.8 g/dL (3.4-5.0); Anion Gap 4 mmol/L (6-16); Blood Urea Nitrogen 41 mg/dL (8-24); Bun/Creatinine Ratio 43.8 (12.0-20.0); CO2, Blood 40 mmol/L (21-32); Calcium, Blood 8.1 mg/dL (8.5-10.1); Chloride, Blood 93 mmol/L (98-108); Creatinine, Blood 0.94 mg/dL (0.60-1.20); Glomerular Filtration Rate >60 (60-); Glucose, Blood 84 mg/dL (70-99); Potassium, Blood 4.5 mmol/L (3.5-5.5); Sodium, Blood 137 mmol/L (136-145)
--- NOTE | 2018-04-10 04:52 | NUR ---
SHIFT SUMMARY PT CONTINUES TO BE A&O X4, PLEASANT, CALM AND COOPERATIVE, APPRECIATIVE OF CARE. PT TOLERATING BIPAP 16/8 FIO2 25% OR 3L NC W/ SPO2 > 92%. PT EATING MULTIPLE SNACKS T/O NIGHT WHEN NOT SLEEPING, AMBULATING TO BATHROOM WELL W/OUT SOB. WILL CONTINUE TO MONITOR AND PROVIDE CARE UNTIL REPORT OFF TO DAY SHIFT RN.
--- NOTE | 2018-04-10 18:07 | NUR ---
SHIFT SUMMARY PT RESTING IN BED THROUGHOUT THE DAY. VSS. ALERT AND ORIENTED X3. LUNG SOUNDS CLEAR, DIMINISHED BASES. AFLUTTER RATE 80s-120s THROUGHOUT THE DAY PER MONITOR. 3+ PITTING EDEMA TO BILATERAL KNEES TO ANKLES, 2+ PITTING EDEMA TO BILATERAL FEET, 1+ PITTING EDEMA TO BILATERAL THIGHS, 1+ PITTING EDEMA TO BILATERAL FLANKS. PT AMBULATED TO BATHROOM WITH STANDBY ASSIST. C/O LEFT KNEE PAIN / ACHE, DR. MAYES NOTIFIED, MEDICATED WITH PRN MEDS, SEE EMAR. WILL CONTINUE TO MONITOR.
[2018-04-11 04:15] LABS: BASOPHILS ABSOLUTE AUTO 0.01 K/mm3 (0.00-0.23); BASOPHILS PERCENT AUTO 0 % (0-2); EOSINOPHILS ABSOLUTE AUTO 0.08 K/mm3 (0.00-0.68); EOSINOPHILS PERCENT AUTO 1 % (0-6); Hematocrit 35.5 % (37.0-53.0); IMMATURE GRAN ABSOLUTE AUTO 0.11 K/mm3 (0.00-0.10); IMMATURE GRAN PERCENT AUTO 1 % (0-1); LYMPHOCYTES ABSOLUTE AUTO 1.13 K/mm3 (0.84-5.20); LYMPHOCYTES PERCENT AUTO 8 % (21-46); MONOCYTES ABSOLUTE AUTO 0.89 K/mm3 (0.16-1.47); MONOCYTES PERCENT AUTO 6 % (4-13); Mean Corpuscular HGB 27.7 pg (26.0-34.0); Mean Corpuscular Volume 89 fL (80-100); Mean Platelet Volume 10.2 fL (9.1-12.4); NEUTROPHILS ABSOLUTE AUTO 12.68 K/mm3 (1.96-9.15); NEUTROPHILS PERCENT AUTO 85 % (41-73); Platelet Count 332 K/mm3 (150-400); RDW Coefficient Variation 17.4 % (11.7-14.2); Red Blood Cell Count 3.97 M/mm3 (4.30-5.90)
--- NOTE | 2018-04-11 04:23 | NUR ---
SUMMARY: NO ACUTE CHANGE TONIGHT. VSS, A/O. PT TOLERATED BIPAP TONIGHT, ALTHOUGH WOULD SWITCH TO 2LNC OFTEN TO EAT SNACKS, PT DIDN'T SLEEP. ENCOURAGED TO KEEP BIPAP ON. WHEEZE ASCULTATED, SCHEDULED BREATHING TREATMENTS, PT HAS DENIED SOB, CHEST PAIN. TELE STABLE, LEGS AND SCROTUM ELEVATED. PT HAS DENIED PAIN. PLAN IS FOR POSSIBLE DC TODAY WITH HOME 02. NO SAFETY CONCERNS AT THIS TIME.
[2018-04-11 04:28] LABS: Albumin, Blood 3.1 g/dL (3.4-5.0); Anion Gap 5 mmol/L (6-16); Blood Urea Nitrogen 38 mg/dL (8-24); Bun/Creatinine Ratio 46.1 (12.0-20.0); CO2, Blood 38 mmol/L (21-32); Calcium, Blood 7.8 mg/dL (8.5-10.1); Chloride, Blood 91 mmol/L (98-108); Creatinine, Blood 0.82 mg/dL (0.60-1.20); Glomerular Filtration Rate >60 (60-); Glucose, Blood 134 mg/dL (70-99); Magnesium, Blood 2.2 mg/dL (1.6-2.4); Phosphorus, Blood 4.2 mg/dL (2.5-4.9); Potassium, Blood 4.7 mmol/L (3.5-5.5); Sodium, Blood 134 mmol/L (136-145)
--- NOTE | 2018-04-11 15:08 | NUR ---
PT PULLING TELEMETRY OFF. FRUSTRATED AND STATES "I'M GONNA GO OUTSIDE AND SMOKE WHILE I WAIT FOR YOU TO GET ME OUT OF HERE". PT INSTRUCTED THAT HE NEEDS TO STAY IN HIS ROOM ON HIS OXYGEN AND CANNOT GO OUT TO SMOKE. EDUCATED ON THE RISK OF SMOKING WHILE WEARING OXYGEN AND ALSO ON HIS NEED FOR OXYGEN CONTINUOUSLY. PT FRUSTRATED, BUT VERBALIZES UNDERSTANDING. AWAITING HOME OXYGEN DELIVER FOR DISCHARGE.
[2018-04-11] MEDS ORDERED: ALBU2.5V5 NEB (15:37)
[2018-04-11] MEDS ORDERED: ALBU3IS INH (15:37)
[2018-04-11] MEDS ORDERED: PRED10 PO (15:40)
[2018-04-11] MEDS ORDERED: LANOXIN125 MCG PO (15:41)
[2018-04-11] MEDS ORDERED: DILTIAZEM 24HR300 M2 PO (15:42)
[2018-04-11] MEDS ORDERED: FURO40 PO (15:43)
[2018-04-11] MEDS ORDERED: FOLI1 PO (15:43)
[2018-04-11] MEDS ORDERED: LIDO700A20 TOP (15:45)
[2018-04-11] MEDS ORDERED: METO50 PO (15:46)
[2018-04-11] MEDS ORDERED: PAIN-RELIEF85 GM TOP (15:48)
--- NOTE | 2018-04-11 17:26 | NUR ---
DISCHARGE NOTE PT STABLE FOR DISCHARGE. IV REMOVED. DISCHARGE MEDICATIONS AND DISCHARGE INSTRUCTIONS REVIEWED WITH PT. PT VERBALIZES UNDERSTANDING AND DENIES QUESTIONS. PERSONAL BELONGINGS RETURNED TO PT FROM SECURITY. PT TO TAXI FOR DISCHARGE VIA WHEELCHAIR WITH BELONGINGS.
== END 2018-04-11 17:28 | disposition home or self-care (01) | DRG 189 ==
LOC: ER 16:42 → PCU 18:19 → ICUE 03-21 18:04 → PCU 03-24 16:56 → MEDS 03-27 14:55 → ICUW 04-03 08:32 → PCU 04-05 23:40
PROVIDERS: Emergency Medicine; Family Medicine; Internal Medicine; Internal Medicine Critical Care Medicine; Pharmacist; ADMIT Hospitalist
PROC: 5A09357 Assistance with Respiratory Ventilation, Less than 24 Consecutive Hours, Continuous Positive Airway Pressure (ICD-10-PCS; principal; 2018-03-16)
DX: J96.01 Acute respiratory failure with hypoxia (principal); J18.9 Pneumonia, unspecified organism; I50.33 Acute on chronic diastolic (congestive) heart failure; E87.1 Hypo-osmolality and hyponatremia; J44.1 Chronic obstructive pulmonary disease with (acute) exacerbation; N17.9 Acute kidney failure, unspecified; J44.0 Chronic obstructive pulmonary disease with (acute) lower respiratory infection; F10.239 Alcohol dependence with withdrawal, unspecified; I48.92 Unspecified atrial flutter; G93.40 Encephalopathy, unspecified; E87.2 Acidosis; J96.02 Acute respiratory failure with hypercapnia; F43.10 Post-traumatic stress disorder, unspecified; F41.0 Panic disorder [episodic paroxysmal anxiety]; F17.210 Nicotine dependence, cigarettes, uncomplicated; Z59.0 Homelessness; Z68.30 Body mass index [BMI] 30.0-30.9, adult; E66.9 Obesity, unspecified; F41.8 Other specified anxiety disorders; I16.0 Hypertensive urgency; E86.1 Hypovolemia; Z91.19 Patient's noncompliance with other medical treatment and regimen; E87.5 Hyperkalemia; I48.0 Paroxysmal atrial fibrillation; R45.1 Restlessness and agitation; Y95 Nosocomial condition; I11.0 Hypertensive heart disease with heart failure
CPT/HCPCS: 36415; 36600; 51702; 71045; 71046; 71260; 76770; 80048; 80053; 80069; 80202; 81001; 82803; 82947; 83605; 83735; 83880; 84443; 85025; 85027; 87040; 87070; 87086; 87205; 92610; 93005; 93010; 93306; 94640; 94644; 94660; 94760; 94761; 94762; 96374; 99285-25; J0360; J0696; J1160; J1630; J1650; J1815; J1940; J2060; J2185; J2543; J2920; J2930; J3370; J3411; J7030; J7040; J7050; Q9967

== ENCOUNTER 2018-04-13 17:58 | Emergency (ER) | payer OTHER ==
[~2018-04-13] VITALS: Ht 182.9 cm; Wt 95.2 kg
[~2018-04-13 17:58] MED LIST changes: +ALBU2.5V5 NEB; +ALBU3IS INH; +DILTIAZEM 24HR300 M2 PO; +FOLI1 PO; +FURO40 PO; +LANOXIN125 MCG PO; +LIDO700A20 TOP; +PAIN-RELIEF85 GM TOP
[2018-04-13 18:31] LABS: BASOPHILS ABSOLUTE AUTO 0.01 K/mm3 (0.00-0.23); BASOPHILS PERCENT AUTO 0 % (0-2); EOSINOPHILS ABSOLUTE AUTO 0.09 K/mm3 (0.00-0.68); EOSINOPHILS PERCENT AUTO 1 % (0-6); Hematocrit 35.5 % (37.0-53.0); Hemoglobin 10.8 g/dL (13.5-17.5); IMMATURE GRAN ABSOLUTE AUTO 0.07 K/mm3 (0.00-0.10); IMMATURE GRAN PERCENT AUTO 1 % (0-1); LYMPHOCYTES ABSOLUTE AUTO 1.22 K/mm3 (0.84-5.20); LYMPHOCYTES PERCENT AUTO 9 % (21-46); MONOCYTES ABSOLUTE AUTO 1.43 K/mm3 (0.16-1.47); MONOCYTES PERCENT AUTO 11 % (4-13); Mean Corpuscular HGB 27.3 pg (26.0-34.0); Mean Corpuscular HGB Conc 30.4 g/dL (31.5-36.5); Mean Corpuscular Volume 90 fL (80-100); Mean Platelet Volume 9.8 fL (9.1-12.4); NEUTROPHILS ABSOLUTE AUTO 10.31 K/mm3 (1.96-9.15); NEUTROPHILS PERCENT AUTO 79 % (41-73); Platelet Count 292 K/mm3 (150-400); RDW Coefficient Variation 17.7 % (11.7-14.2); RDW Standard Deviation 57.9 fL (35.1-46.3); Red Blood Cell Count 3.95 M/mm3 (4.30-5.90); White Blood Cell Count 13.13 K/mm3 (4.00-11.30)
[2018-04-13 18:36] LABS: Alanine Aminotransfer (ALT/SGP 48 U/L (12-78); Albumin, Blood 3.5 g/dL (3.4-5.0); Albumin/Globulin Ratio 1.1 (0.8-1.8); Alk Phos 51 U/L (50-136); Anion Gap 4 mmol/L (6-16); Aspartate Aminotrans (AST/SGOT 20 U/L (12-37); Bilirubin, Total 0.6 mg/dL (0.1-1.0); Blood Urea Nitrogen 26 mg/dL (8-24); Bun/Creatinine Ratio 34.8 (12.0-20.0); CO2, Blood 43 mmol/L (21-32); Calcium, Blood 8.1 mg/dL (8.5-10.1); Chloride, Blood 88 mmol/L (98-108); Creatinine, Blood 0.75 mg/dL (0.60-1.20); Globulin, Blood 3.1 g/dL (2.2-4.0); Glomerular Filtration Rate >60 (60-); Glucose, Blood 107 mg/dL (70-99); Potassium, Blood 3.7 mmol/L (3.5-5.5); Sodium, Blood 135 mmol/L (136-145); Total Protein, Blood 6.6 g/dL (6.4-8.2); Troponin I 0.045 ng/mL (0.000-0.040)
[2018-04-13 19:08] LABS: Base Excess Venous 20.6 mmol/L; PO2 Venous 50.6 mmHg (38-42); pH Blood Venous 7.37 (7.34-7.37)
[2018-04-13] MEDS ORDERED: Prednisone20 MG PO (21:57)
[2018-04-13] MEDS ORDERED: Zithromax250 MG PO (21:57)
== END 2018-04-13 23:35 | disposition home or self-care (01) ==
LOC: ER 17:58
PROVIDERS: Emergency Medicine
DX: J44.1 Chronic obstructive pulmonary disease with (acute) exacerbation (principal); E87.70 Fluid overload, unspecified; I48.92 Unspecified atrial flutter; I10 Essential (primary) hypertension; Z79.899 Other long term (current) drug therapy; Z87.891 Personal history of nicotine dependence
CPT/HCPCS: 71046; 80053; 82803; 83880; 84484; 85025; 93005; 93010; 94644; 94645; 96374; 96375; 99285-25; J1940; J2930

== ENCOUNTER 2018-04-16 17:03 | Inpatient (IN) | payer OTHER ==
[~2018-04-16] VITALS: Ht 182.9 cm; Wt 110.5 kg
[~2018-04-16 17:03] MED LIST changes: +Prednisone20 MG PO; +Zithromax250 MG PO
[2018-04-16 17:28] LABS: BASOPHILS ABSOLUTE AUTO 0.01 K/mm3 (0.00-0.23); BASOPHILS PERCENT AUTO 0 % (0-2); EOSINOPHILS ABSOLUTE AUTO 0.06 K/mm3 (0.00-0.68); EOSINOPHILS PERCENT AUTO 1 % (0-6); Hematocrit 36.3 % (37.0-53.0); IMMATURE GRAN PERCENT AUTO 1 % (0-1); LYMPHOCYTES ABSOLUTE AUTO 1.08 K/mm3 (0.84-5.20); LYMPHOCYTES PERCENT AUTO 9 % (21-46); MONOCYTES ABSOLUTE AUTO 1.39 K/mm3 (0.16-1.47); MONOCYTES PERCENT AUTO 11 % (4-13); Mean Corpuscular HGB 28.3 pg (26.0-34.0); Mean Corpuscular HGB Conc 30.3 g/dL (31.5-36.5); Mean Platelet Volume 9.8 fL (9.1-12.4); NEUTROPHILS ABSOLUTE AUTO 9.82 K/mm3 (1.96-9.15); NEUTROPHILS PERCENT AUTO 79 % (41-73); NRBC ABSOLUTE 0.04 K/mm3 (0.00-0.02); NRBC Auto 0.3 /100 WBC (0.0-0.2); Platelet Count 250 K/mm3 (150-400); RDW Coefficient Variation 17.8 % (11.7-14.2); RDW Standard Deviation 61.1 fL (35.1-46.3); Red Blood Cell Count 3.89 M/mm3 (4.30-5.90); White Blood Cell Count 12.46 K/mm3 (4.00-11.30)
[2018-04-16 17:30] LABS: Mean Corpuscular Volume 93 fL (80-100)
[2018-04-16 17:50] LABS: Alanine Aminotransfer (ALT/SGP 222 U/L (12-78); Albumin, Blood 3.2 g/dL (3.4-5.0); Alk Phos 70 U/L (50-136); Anion Gap 4 mmol/L (6-16); Aspartate Aminotrans (AST/SGOT 86 U/L (12-37); Bilirubin, Total 0.6 mg/dL (0.1-1.0); Blood Urea Nitrogen 24 mg/dL (8-24); Bun/Creatinine Ratio 31.7 (12.0-20.0); CO2, Blood 40 mmol/L (21-32); Calcium, Blood 7.6 mg/dL (8.5-10.1); Chloride, Blood 89 mmol/L (98-108); Creatinine, Blood 0.76 mg/dL (0.60-1.20); Globulin, Blood 3.2 g/dL (2.2-4.0); Glomerular Filtration Rate >60 (60-); Glucose, Blood 136 mg/dL (70-99); Potassium, Blood 3.7 mmol/L (3.5-5.5); Sodium, Blood 133 mmol/L (136-145); Total Protein, Blood 6.4 g/dL (6.4-8.2)
[2018-04-16 18:12] LABS: Digoxin (Lanoxin) 0.39 ug/mL (0.80-2.00)
[2018-04-16 20:37] LABS: PCO2 Arterial 101 mmHg (35-45); PO2 Arterial 102 mmHg (80-100); pH Blood Arterial 7.24 (7.35-7.45)
--- NOTE | 2018-04-16 21:55 | NUR ---
PT ARRIVAL NOTE. PT ARRIVED VIA GURNEY TO UNIT. PT IS OBTUNDED ON THE BIPAP AT THIS TIME. PT WAS ADMITTED FOR AFIB RVR AND RESP FAILURE. PT'S HR WHEN ARRIVED TO UNIT IS AFIB 90'S-100S. TELE WAS PLACED, PT'S BP 146/79, PT HAS GENERALIZED 3-4+ PITTING EDEMA. PT'S L/S ARE VERY DIM T/O. PT IS ON BIPAP WITH STATS >90%. PT HAD A CRITICAL ABG IN THE ED (SEE LABS). BT PRESENT AND HYPOACTIVE, ABD IS FIRM AND NONTENDER TO PALP. PT IS VERY LETHARGIC BUT RESPONDS TO VERBAL AND PHYSICAL STIMULI, PT IS UNABLE TO STAY AWAKE/KEEP EYES OPEN AT THIS TIME. CALL LIGHT IN REACH, BED ALARM ON WILL CONTINUE TO MONITOR.
[2018-04-16 23:11] LABS: PCO2 Arterial 87.6 mmHg (35-45); pH Blood Arterial 7.31 (7.35-7.45)
[2018-04-17 04:08] LABS: BASOPHILS ABSOLUTE AUTO 0.01 K/mm3 (0.00-0.23); BASOPHILS PERCENT AUTO 0 % (0-2); EOSINOPHILS PERCENT AUTO 0 % (0-6); IMMATURE GRAN ABSOLUTE AUTO 0.05 K/mm3 (0.00-0.10); IMMATURE GRAN PERCENT AUTO 1 % (0-1); LYMPHOCYTES PERCENT AUTO 4 % (21-46); MONOCYTES ABSOLUTE AUTO 0.19 K/mm3 (0.16-1.47); MONOCYTES PERCENT AUTO 2 % (4-13); Mean Corpuscular HGB 27.5 pg (26.0-34.0); Mean Corpuscular HGB Conc 29.7 g/dL (31.5-36.5); Mean Corpuscular Volume 93 fL (80-100); Mean Platelet Volume 9.9 fL (9.1-12.4); NEUTROPHILS ABSOLUTE AUTO 7.59 K/mm3 (1.96-9.15); NEUTROPHILS PERCENT AUTO 93 % (41-73); Platelet Count 256 K/mm3 (150-400); RDW Coefficient Variation 17.8 % (11.7-14.2); RDW Standard Deviation 60.8 fL (35.1-46.3); White Blood Cell Count 8.14 K/mm3 (4.00-11.30)
[2018-04-17 04:31] LABS: Alanine Aminotransfer (ALT/SGP 194 U/L (12-78); Albumin, Blood 3.1 g/dL (3.4-5.0); Alk Phos 66 U/L (50-136); Anion Gap 7 mmol/L (6-16); Aspartate Aminotrans (AST/SGOT 45 U/L (12-37); Bilirubin, Total 0.7 mg/dL (0.1-1.0); Blood Urea Nitrogen 21 mg/dL (8-24); Bun/Creatinine Ratio 27.7 (12.0-20.0); CO2, Blood 41 mmol/L (21-32); Chloride, Blood 87 mmol/L (98-108); Creatinine, Blood 0.76 mg/dL (0.60-1.20); Globulin, Blood 3.1 g/dL (2.2-4.0); Glomerular Filtration Rate >60 (60-); Glucose, Blood 188 mg/dL (70-99); Magnesium, Blood 1.9 mg/dL (1.6-2.4); Phosphorus, Blood 3.5 mg/dL (2.5-4.9); Potassium, Blood 3.6 mmol/L (3.5-5.5); Sodium, Blood 135 mmol/L (136-145); Total Protein, Blood 6.2 g/dL (6.4-8.2)
[2018-04-17 04:42] LABS: Digoxin (Lanoxin) 1.33 ug/mL (0.80-2.00)
--- NOTE | 2018-04-17 06:31 | NUR ---
SHIFT SUMMARY. PT HAS CONVERTED SEVERAL TIMES FROM AFIB TO NSR AND BACK. PT IS CURRENTLY IN AFIB IN THE 100-120'S. PT IS ON A CARDIZEM GTT AT 10. PT'S VS HAVE BEEN STABLE T/O SHIFT. PT HAS BEEN ON BIPAP UNTIL 0600, HE IS CURRENTLY ON NC AT 6L WITH STATS 89-90%. PT HAS CONDOM CATH ON WHICH IS WORKING VERY WELL AT THIS TIME. CALL LIGHT IN REACH, BED IS LOCKED AND LOW WILL CONTINUE TO MONITOR UNTIL REPORT IS GIVEN TO ONCOMING RN.
[2018-04-17 07:56] LABS: Adenovirus Not Detected (NOT DETECT); Bordetella pertussis Not Detected (NOT DETECT); Chlamydophila pneumoniae Not Detected (NOT DETECT); Coronavirus 229E Not Detected (NOT DETECT); Coronavirus HKU1 Not Detected (NOT DETECT); Coronavirus NL63 Not Detected (NOT DETECT); Coronavirus OC43 Not Detected (NOT DETECT); Human Metapneumovirus Not Detected (NOT DETECT); Human Rhinovirus/Enterovirus Not Detected (NOT DETECT); Influenza A Not Detected (NOT DETECT); Influenza A/2009-H1 Not Detected (NOT DETECT); Influenza A/H1 Not Detected (NOT DETECT); Influenza A/H3 Not Detected (NOT DETECT); Influenza B Not Detected (NOT DETECT); Mycoplasma pneumoniae Not Detected (NOT DETECT); Parainfluenza Virus 1 Not Detected (NOT DETECT); Parainfluenza Virus 2 Not Detected (NOT DETECT); Parainfluenza Virus 3 Not Detected (NOT DETECT); Parainfluenza Virus 4 Not Detected (NOT DETECT); Respiratory Syncytial Virus Not Detected (NOT DETECT)
--- NOTE | 2018-04-17 09:33 | NUR ---
AM NOTE PT ALERT. FOLLOWING DIRECTIONS. EXCELLENT APPETITE. VSS. PT OFF BIPAP FOR BREAKFAST. 4L N/C SAT 88% WITH TALKING AND EATING. AFTER EATING PLACED BACK ON BIPAP. DR MAYES HERE. PT STATED THAT HIS BROTHER IS BRINGING HIM ALCOHOL TO HIS HOTEL ROOM. NO WITHDRAWEL SYMPTOMS NOTED AT THIS TIME. CONTINUE POT.
[2018-04-17 13:08] LABS: PCO2 Arterial 67.2 mmHg (35-45); PO2 Arterial 62.4 mmHg (80-100); pH Blood Arterial 7.44 (7.35-7.45)
--- NOTE | 2018-04-17 13:43 | NUR ---
CHICKEN WRAP A STAFF GAVE THE PT A CHICKEN WRAP THAT HAD BEEN SITTING IN THE WINDOW ALL MORNING. NO REFRIGERATION. PT HAD BROUGHT IT FROM HIS HOTEL. THIS NURSE HAD TALKED WITH HIM ABOUT THROWING IT OUT EARLIER. HE REFUSED. CONTINUE POT.
--- NOTE | 2018-04-17 16:43 | NUR ---
LIVING ARRANGEMENTS PT WAS DISCHARGED TO [facility] IN [place] AND WAS EVICTED ON D/T AGRESSION. HE MOVED TO [facility] . RM 10. SYDNEE MOVED HIS OXYGEN SET UP. PT WAS PAID UP THROUGH 04/17/18. ACCORDING TO THE JOSEFINA KATZ. PT IS NOT WELCOME BACK D/T MULTIPLE DAILY VISITS BY EMS AND THE FIRE DEPARTMENT. THEY FEEL HIS MEDICAL STATE IS NOT SAFE. JOSEFINA KATZ STATED THAT PT BROTHER CAME AND CLEANED OUT THE PT ROOM, TOOK HIS OXYGEN SET UP AND RETURNED THE SHAFER TODAY (04/17/18.). CONTINUE POT.
--- NOTE | 2018-04-17 19:10 | NUR ---
Spoke with patient briefly. He is very short of breath and appears to be somewhat panting. He reports that he has been "fine" all day until now when he is all of the sudden having a "panic attack." Attempted to instruct patient to take deep breaths, he states, "I don't need that, I need ranch." Pt asks for another ranch packet for his dinner. Conferenced with nurse, Svetlana. She states that she has called the hotels that the patient has been in. She has documented this in her own nursing note, reader is refered to Svetlana's note, in which she has outlined the patient's most recent living history. Pt is not welcome back at the motel that he was at just prior to admission. Svetlana states that she placed a executive secretary social welfare consult. Review of medications with Svetlana. She reports that the patient does have medication on EMAR for anxiety. She is going to review symptoms with patient and offer him dressing for his dinner. Will remain available. Pt may go into withdrawal from ETOH; his brother has been providing him with alcohol at his motel.
--- NOTE | 2018-04-17 19:52 | NUR ---
PM NOTE. ASSUMED CARE OF PT APROX 1900. PT IS A&Ox4. PT WAS ADMITTED DUE TO RESP FAILURE/HYPOXIA. PT USED NC AT 5L AND BIPAP PRN/SLEEP W/STATS >90%. PT ALSO HAS AFIB RVR AND IS ON A CARDIZEM GTT AT 10 ML/HR. TELE INTACT, AFIB 120'S-150'S PER MANAGING PARTNER [employer] [place]. PT'S BP 168/89. PT HAS 4+ PITTING EDEMA TO HIS BLE TO UPPER THIGHS AND 2-3+ GENERALIZED. L/S DIM AND WHEEZES T/O. BT PRESENT AND HYPERACTIVE, ABD IS SLIGHTLY FRIM BUT NONTENDER TO PALP. PT HAS CONDOM CATH ON AND IS WORKING WELL AT THIS TIME. CALL LIGHT IN REACH, BED IS LOCKED AND LOW WILL CONTINUE TO MONITOR.
[2018-04-18 03:46] LABS: BASOPHILS PERCENT AUTO 0 % (0-2); EOSINOPHILS PERCENT AUTO 0 % (0-6); Hematocrit 34.2 % (37.0-53.0); Hemoglobin 10.2 g/dL (13.5-17.5); IMMATURE GRAN ABSOLUTE AUTO 0.05 K/mm3 (0.00-0.10); IMMATURE GRAN PERCENT AUTO 1 % (0-1); LYMPHOCYTES ABSOLUTE AUTO 0.19 K/mm3 (0.84-5.20); LYMPHOCYTES PERCENT AUTO 2 % (21-46); MONOCYTES ABSOLUTE AUTO 0.47 K/mm3 (0.16-1.47); MONOCYTES PERCENT AUTO 5 % (4-13); Mean Corpuscular HGB 27.8 pg (26.0-34.0); Mean Corpuscular HGB Conc 29.8 g/dL (31.5-36.5); Mean Corpuscular Volume 93 fL (80-100); Mean Platelet Volume 9.9 fL (9.1-12.4); NEUTROPHILS ABSOLUTE AUTO 9.05 K/mm3 (1.96-9.15); NEUTROPHILS PERCENT AUTO 93 % (41-73); Platelet Count 233 K/mm3 (150-400); RDW Coefficient Variation 18.3 % (11.7-14.2); RDW Standard Deviation 62.4 fL (35.1-46.3); Red Blood Cell Count 3.67 M/mm3 (4.30-5.90); White Blood Cell Count 9.76 K/mm3 (4.00-11.30)
[2018-04-18 04:08] LABS: Alanine Aminotransfer (ALT/SGP 145 U/L (12-78); Albumin, Blood 3.1 g/dL (3.4-5.0); Alk Phos 63 U/L (50-136); Anion Gap 5 mmol/L (6-16); Aspartate Aminotrans (AST/SGOT 20 U/L (12-37); Bilirubin, Total 0.6 mg/dL (0.1-1.0); Blood Urea Nitrogen 33 mg/dL (8-24); Bun/Creatinine Ratio 35.2 (12.0-20.0); CO2, Blood 43 mmol/L (21-32); Calcium, Blood 8.3 mg/dL (8.5-10.1); Chloride, Blood 86 mmol/L (98-108); Creatinine, Blood 0.94 mg/dL (0.60-1.20); Globulin, Blood 3.1 g/dL (2.2-4.0); Glomerular Filtration Rate >60 (60-); Glucose, Blood 258 mg/dL (70-99); Potassium, Blood 3.8 mmol/L (3.5-5.5); Sodium, Blood 134 mmol/L (136-145); Total Protein, Blood 6.2 g/dL (6.4-8.2)
--- NOTE | 2018-04-18 05:53 | NUR ---
SHIFT SUMMARY. NO ACUTE CHANGES NOTED THIS SHIFT, VS HAVE BEEN STABLE. PT HAS BEEN ON THE BIPAP MOST OF THIS SHIFT. PT HAS COMPLAINED OF SEVERE ANXEITY AND HAS HAD CWIA SCORE OF 13, PT MEDICATED PER ORDERS AND IS SLEEPING WELL AT THIS TIME. CALL LIGHT IN REACH, BED IS LOCKED AND LOW WILL CONTINUE TO MONITOR UNTIL REPORT IS GIVEN TO ONCOMING RN
--- NOTE | 2018-04-18 17:52 | NUR ---
SHIFT SUMMARY PT RESTING IN BED THROUGHOUT THE DAY. VSS. ALERT AND ORIENTED X3. DENIES PAIN THROUGHOUT THE DAY. LUNG SOUNDS CLEAR, DIMINISHED BASES. AFIB ON TELE RATE 70s-120s, CARDIZEM GTT RUNNING AT 5 ML/HR AT THE END OF DAYSHIFT. CONDOM CATH IN PLACE, DRAINING CLEAR YELLOW URINE. PT ENCOURAGED TO SHIFT WEIGHT IN BED TO PREVENT SORES. 3+ PITTING EDEMA NOTED TO BILATERAL FEET, 2+ PITTING EDEMA TO BILATERAL LEGS, 1+ PITTING EDEMA TO BILATERAL FLANK. WILL CONTINUE TO MONITOR.
[2018-04-19 04:34] LABS: Anion Gap 6 mmol/L (6-16); Blood Urea Nitrogen 38 mg/dL (8-24); Bun/Creatinine Ratio 41.6 (12.0-20.0); CO2, Blood 41 mmol/L (21-32); Calcium, Blood 8.6 mg/dL (8.5-10.1); Chloride, Blood 87 mmol/L (98-108); Creatinine, Blood 0.91 mg/dL (0.60-1.20); Glomerular Filtration Rate >60 (60-); Glucose, Blood 209 mg/dL (70-99); Potassium, Blood 4.5 mmol/L (3.5-5.5); Sodium, Blood 134 mmol/L (136-145)
--- NOTE | 2018-04-19 04:45 | NUR ---
SHIFT SUMMARY PT ALERT AND ORIENTED. VS STABLE. PT ON BIPAP MOST OF SHIFT WITH SATS >92%. PT RESTED MOST OF SHIFT WITH NO COMPLAINTS. PT ABLE TO REPOSITION INDEPENDENTLY. CONDOM CATH DRAINING CLEAR YELLOW URINE. PT CURRENTLY ON 4L NC. LS INSP/EXP WHEEZES THROUGHOUT. PT DENIES ANY PAIN. WILL CONTINUE TO MONITOR AND REPORT TO ONCOMING RN. CALL LIGHT IN REACH.
--- NOTE | 2018-04-19 13:07 | NUR ---
Spiritual care visit conducted. Patient was lying in bed and alert when I entered the room. I introduced myself and patient greeted me. As I established therapeutic alliance patient shared his struggle with his living arrangement stating that he is living on the streets. Patient also stated that he was emotionally tired and lonely. I listened empathically, I provided companionship, emotional support and prayer. Patient responded well to all interventions and showed evidence of restored inocencio. Patient thanked me for the visit
--- NOTE | 2018-04-19 17:23 | NUR ---
SHIFT SUMMARY PT RESTING IN BED THROUGHOUT THE DAY. ALERT AND ORIENTED TO SELF AND PLACE, FOLLOWING DIRECTIONS APPROPRIATELY. LUNG SOUNDS EXPIRATORY WHEEZES THROUGHOUT, DIMINISHED BASES. AFIB RATE 70s-120s THROUGHOUT THE DAY. CARDIZEM GTT TITRATED TO OFF WHEN RATE SUSTAINING UNDER 100. PT WEARING BIPAP OFF AND ON TODAY AND TOLERATING WELL. PITTING EDEMA NOTED FROM BILATERAL FLANKS TO FEET. CONDOM CATH FELL OFF OF PT THIS AM, PT INCONTINENT OF URINE. EDEMA NOTED TO [place] OF PENIS. CONDOM CATH LEFT OFF, ATTENDS IN PLACE. WILL CONTINUE TO MONITOR.
--- NOTE | 2018-04-20 06:40 | NUR ---
SHIFT SUMMARY PT ALERT AND ORIENTED AT TIMES T/O SHIFT. HE HAS BEEN ANXIOUS AND HAD SOME ISSUES WITH PANIC DURING THE NIGHT. PT ALSO HAS SOME PERIODS OF RESTLESSNESS AND DISORIENTATION. PT WAS VERBALLY REDIRECTED AND PROVIDED BIPAP NEEDED. PT RESPONDED EARLY IN SHIFT TO THIS REDIRECTION, BUT HIS ANXIETY INCREASED AND HIS SATURATION DECREASED, ORDERED MEDICATION WAS PROVIDED. RESPIRATORY HAS BEEN INVOLVED WITH PATIENT DURING THE NIGHT. HE HAS SLEPT OFF AND ON DURING THE NIGHT. WITH THE EXCEPTION OF HIS O2 SATS, HIS VITALS WERE STABLE. PT HAS HIS BED IN THE LOWEST POSITION, 2X SIDE RAILS IN PLACE, AND CALL LIGHT WITHIN REACH. PT WILL CONTINUE TO BE MONITORED UNTIL HANDOFF TO DAYSHIFT RN.
--- NOTE | 2018-04-20 09:25 | NUR ---
INITIAL ASSESSMENT: Pt very lethargic but does wake to verbal stimulus, just dowses back off. LS very tight with insp and exp wheese. HR irregular, tele shows afib in the 80's. BT active, abd distended and firm. General pitting edema in abd and flank. R arm with +4 pitting edema, BLE with +4 pitting edema. Scrotum with edema and swelling. Pt oriented to self, place and event. Pt does not know what month, day, or year. Pt having a hard time following directions. Very weak. VSS. Will inform physician.
--- NOTE | 2018-04-20 10:45 | NUR ---
update: John cath placed per orders and iv diaretics given. Pt wakes to verbal stimulus still but dowses back off. Informed him that he would need to remain on the bipap for most of the day. Also informed him for reason for john. Will continue to re-orient and educate, since he is very lethargic and drowsy. Bed alarm on. Call light in reach.
[2018-04-20 10:54] LABS: PCO2 Arterial 94.4 mmHg (35-45); PO2 Arterial 71.8 mmHg (80-100); pH Blood Arterial 7.31 (7.35-7.45)
[2018-04-20 11:33] LABS: Source, Urine Catheter
[2018-04-20 11:37] LABS: Bilirubin, Urine Neg (Neg); Blood, Urine Neg (Neg); Glucose Qualitative, Urine Neg (Neg); Ketones, Urine Neg (Neg); Leukocyte Esterase, Urine Neg (Neg); Nitrite, Urine Neg (Neg); Protein, Urine 1+ (Neg); Specific Gravity, Urine 1.015 (1.003-1.022); Urobilinogen, Urine NORM (Normal)
[2018-04-20 11:53] LABS: Appearance, Urine Clear (Clear); Color, Urine Yellow (P-Yellow)
--- NOTE | 2018-04-20 19:33 | NUR ---
Shift Summary: Pt was lethargic this am at time of assessment but did wake to verbal stimulus. At that time Pt stated that he wanted to eat breakfast and was able to get up to chair with 2 assist. He was not able to eat and was becoming more lethargic sitting up in chair. He was assisted back to bed with 3 person max assist. Physician was notified and Pt was placed back on bipap, abg drawn and john cath placed. Medictions were given per orders and Pt remained on Bipap from approx [id number]. Pt resting in bed at this time on 2L nc. Biox 92%. Pt was much more alert and was able to eat dinner without difficulty. His VS were stable throughout the shift. HR has remained in A-Fib with rate of 80-120's. New orders were given to help maintain controlled HR. Pt is much more alert this evening and able to answer questions appropriatly. Still having +4 Pitting edema in BLE and R arm. Pt was given Lasix IV BID and pt drained large quantities of clear yellow urine. Report was given to night RN and care was transfered.
--- NOTE | 2018-04-20 20:42 | NUR ---
PM NOTE. ASSUMED CARE OF PT APROX 1900, PT IS ALERT AND ORIENTED BUT VERY LETHARGIC. PT WAS ADMITTED DUE TO RESP FAILURE AND AFIB RVR. PT WAS ON BIPAP MOST OF THE DAY PER REPORT FROM DAY SHIFT RN. PT HAS BEEN OFF BIPAP FOR APROX 2.5 HOURS AND HAS BECOME MORE CONFUSED AND ATTEMPTED TO GET OUT OF BED PULLING OFF HIS NC, PTS O2 STATS WERE IN THE 60'S, BIPAP WAS PLACED, PT IS CURRENTLY AT 92% ON THE BIPAP. TELE INTACT, AFIB IN THE 110-120'S, PTS BP 147/80, 4+ PITTING EDEMA FROM THE PT'S CHEST DOWN TO BLE. L/S COARSE, WHEEZES AND TIGHT T/O. BIPAP SETTINGS 18/8 AND 35%. BT PRESENT AND HYPOACTIVE, ABD IS FIRM AND DISTENDED BUT NONTENDER TO PALP. CALL LIGHT IN REACH BED IS LOCKED AND LOW.
[2018-04-21 04:24] LABS: Hematocrit 35.3 % (37.0-53.0); Hemoglobin 10.4 g/dL (13.5-17.5); Mean Corpuscular HGB 27.2 pg (26.0-34.0); Mean Corpuscular HGB Conc 29.5 g/dL (31.5-36.5); Mean Corpuscular Volume 92 fL (80-100); NRBC ABSOLUTE 0.03 K/mm3 (0.00-0.02); NRBC Auto 0.4 /100 WBC (0.0-0.2); Platelet Count 195 K/mm3 (150-400); RDW Coefficient Variation 17.2 % (11.7-14.2); RDW Standard Deviation 58.5 fL (35.1-46.3); Red Blood Cell Count 3.82 M/mm3 (4.30-5.90)
[2018-04-21 04:35] LABS: Blood Urea Nitrogen 47 mg/dL (8-24); Bun/Creatinine Ratio 59.1 (12.0-20.0); Calcium, Blood 8.4 mg/dL (8.5-10.1); Chloride, Blood 85 mmol/L (98-108); Glomerular Filtration Rate >60 (60-); Glucose, Blood 119 mg/dL (70-99); Potassium, Blood 5.5 mmol/L (3.5-5.5); Sodium, Blood 136 mmol/L (136-145)
[2018-04-21 04:52] LABS: Anion Gap Unable to Calculate mmol/L (6-16); CO2, Blood >45 mmol/L (21-32)
--- NOTE | 2018-04-21 05:37 | NUR ---
SHIFT SUMMARY. NO ACUTE CHANGES NOTED, PT HAS BEEN CONFUSED T/O THE NIGHT, PT HAS BEEN TAKING THE BIPAP OFF AND ON T/O THE NIGHT. PT'S CO2 LAB IS CRITIAL HIGH (SEE LABS) THIS RN ATTEMPTED TO EDUCATE PT ON THE IMPORTANCE OF WEARING THE BIPAP TO HELP IMPROVE HIS RESPIRATORY STATUS, HOWEVER PT IS UNABLE TO FULLY UNDERSTAND AT THIS TIME. PT VS HAVE BEEN STABLE T/O SHIFT. PT DENIES CHEST PAIN/PRESSURE OR N/V. CALL LIGHT IN REACH, BED IS LOCKED AND LOW WILL CONTINUE TO MONITOR UNTIL REPORT IS GIVEN TO ONCOMING RN.
--- NOTE | 2018-04-21 13:42 | NUR ---
PATIENT VISITED AND WAS ASLEEP ON THE BIPAP. PATIENT EDUCATION IS NOT INDICATED AT THIS TIME.
--- NOTE | 2018-04-21 19:28 | NUR ---
SHIFT SUMMARY ASSUMED CARE OF PT APPROX. 0700. PT A&O X3 AT THIS TIME. ASSESSMENT COMPLETED, VITAL SIGNS STABLE. THROUGHOUT SHIFT PT ON AND OFF OF BIPAP MACHINE THROUGHTOUT SHIFT WHNE NO ON BIPAP PT WAS ON 2-3L OXYGEN VIA NASAL CANULA. PT ABLE TO GET UP TO BEDSIDE COMMODE NEEDED. PT SPENT MOST OF SHIFT UP IN CHAIR WITH FEET ELEVATED. TAN REMAIN IN PLACE, PATENT AND DRAINING. PT PLEASANT, COOPERATIVE AND USED CALL LIGHT APPROPRIATE. PT BED TO BED AT THIS TIME. BED IN LOW POSTION, BED ALARM ON , CALL LIGHT IN REACH AND PT DENIES ANY NEEDS AT THIS TIME. WILL CONTINUE TO MONITOR UNTIL HANDOFF TO NIGHTSHIFT RN.
--- NOTE | 2018-04-21 21:30 | NUR ---
PM NOTE. ASSUMED CARE OF PT APROX 1900, PT IS ALERT AND ORIENTED AT TIMES, OTHER TIMES CONFUSED, PT WAS NOT ON THE BIPAP WHEN THIS SHIFT STARTED BUT IS NOW. TELE INTACT, AFIB 100'S PER AIRCONDITIONING DRAFTING OFFICER, PT'S BP 171/85. PT'S EDEMA HAS IMPROVED FROM PREVIOUS EDUCATIONAL MANAGER DUE TO DIURETICS AND FLUID RESTRICTION. PT'S L/S HAVE IMPROVED WELL BUT THEY ARE STILL COARSE WITH SOME WHEEZES T/O. PT IS ON BIPAP AT 18/8 AND 35%. BT PRESENT AND HYPOCATIVE, ABD IS FIRM AND NONTENDER TO PALP. CALL LIGHT IN REACH, BED IS LOCKED AND LOW WILL CONTINUE TO MONITOR.
--- NOTE | 2018-04-22 05:21 | NUR ---
SHIFT SUMMARY. NO ACUTE CHANGES NOTED THIS SHIFT, PT HAS BEEN ON THE BIPAP APROX 4 HOURS THIS SHIFT, PT HAS NOT WANTED TO COMPLY WITH THE FLUID RESTRICTION OF 1200 [address] AND BECAME ANGRY WHEN STAFF TRIES TO EDUCATE AND ENCOURAGE THE PT TO BE COMPLIANT. PT DENIES CHEST PAIN/PRESSURE, N/V. PT IS SOB AT REST MOST OF THIS SHIFT. CALL LIGHT IN REACH, BED IS LOCKED AND LOW, WILL CONTINUE TO MONITOR UNTIL REPORT IS GIVEN TO ONCOMING RN.
[2018-04-22 06:10] LABS: Blood Urea Nitrogen 35 mg/dL (8-24); Bun/Creatinine Ratio 51.5 (12.0-20.0); Calcium, Blood 8.4 mg/dL (8.5-10.1); Chloride, Blood 85 mmol/L (98-108); Creatinine, Blood 0.68 mg/dL (0.60-1.20); Glomerular Filtration Rate >60 (60-); Glucose, Blood 119 mg/dL (70-99); Potassium, Blood 4.1 mmol/L (3.5-5.5); Sodium, Blood 137 mmol/L (136-145)
[2018-04-22 06:18] LABS: Anion Gap Unable to Calculate mmol/L (6-16)
[2018-04-22 06:19] LABS: CO2, Blood >45 mmol/L (21-32)
--- NOTE | 2018-04-22 08:00 | NUR ---
PT PLEASANT CONFUSED. CONCRETE. DENIES PAIN AT THIS TIME. H/R IRREG. NO MURMER NOTED. PER TELE: AFIB IN 130'S. LUNGS COARSE AND WHEEZY T/O. RESP ARE SOMEWHAT LABORED. AT TIMES. ABLE TO SPEAK 4-6 WORD SENTENCES. ON 2L O2 AT THIS TIME. PT LIKES TO HOLD N.C IN MOUTH. BT X4 LAST BM THIS AM. VOIDS TAN CATH. CLEAR YELLOW FLUID DRAINING. PT 2 ASST. BSC BED IN LOW POSITION,, CALL LITE IN REACH, CALLS APPROP
--- NOTE | 2018-04-22 10:27 | NUR ---
H/R PER TLE 130-160.. CALLED LUCILLE WISE METOPROLOL PUSH 5M. PER EMAR.
--- NOTE | 2018-04-22 18:30 | NUR ---
PT PLEASANT TODAY. LITTLE CONFUSION NOTED. FOLLOWS COMMANDS MOST OF TIME. PT TALKING MORE. CONTINUES TO WEAR N/C IN MOUTH. NO OTHER CONCERNS AT THIS TIME. BED IN LOW POSITION, CALL LITE IN REACH, CALLS APPROP MOST FO TIME. BED ALARM ON FOR SAFETY
[2018-04-23 04:40] LABS: Blood Urea Nitrogen 36 mg/dL (8-24); Bun/Creatinine Ratio 49.7 (12.0-20.0); Calcium, Blood 8.4 mg/dL (8.5-10.1); Chloride, Blood 87 mmol/L (98-108); Creatinine, Blood 0.72 mg/dL (0.60-1.20); Glomerular Filtration Rate >60 (60-); Glucose, Blood 141 mg/dL (70-99); Potassium, Blood 5.1 mmol/L (3.5-5.5); Sodium, Blood 138 mmol/L (136-145)
[2018-04-23 04:48] LABS: Digoxin (Lanoxin) 0.52 ug/mL (0.80-2.00)
[2018-04-23 05:04] LABS: Anion Gap Unable to Calculate mmol/L (6-16); CO2, Blood >45 mmol/L (21-32)
--- NOTE | 2018-04-23 05:35 | NUR ---
SHIFT SUMMARY PATIENT HAS BEEN ALERT AND ORIENTED X 3 FOR THE MAJORITY OF THE SHIFT. HE HAS BEEN PLEASANT, THOUGH HAS NOT BEEN COMPLETELY COOPERATIVE WITH CARE. PT WORE HIS BIPAP AT TIMES DURING THE NIGHT, BUT ONLY FOR SHORT PERIODS. HE REFUSED TO WEAR IT THIS MORNING WHEN ASKED LAST. HIS CO2 CAME BACK CRITICALLY HIGH, BUT PT UNWILLING TO WEAR BIPAP AT THIS TIME. WILL ATTEMPT AGAIN WITH RT. PT SLEPT OFF AND ON DURING THE NIGHT. DENIED ANY COMPLAINTS OF INTOLERABLE PAIN OR DISCOMFORT. PT DENIED ANY UNMET NEEDS. HE COMMUNICATED WITH STAFF EFFECTIVELY,L BUT DID HAVE SLOW RESPONSES TO QUESTIONS. PT VITALS WERE STABLE T/O SHIFT, THOUGH HE REMAINS IN AFIB. NO ACUTE CHANGES TO VITALS OR LOC. PT HAS 2X SIDE RAILS INPLACE, BED IN THE LOWEST POSITION AND CALL LIGHT WITHIN REACH. PT WILL CONTINUE TO BE MONITORED UNTIL HANDOFF TO DAYSHIFT RN.
--- NOTE | 2018-04-23 16:38 | NUR ---
SHIFT SUMMARY PT RESTING IN BED THROUGHOUT THE DAY. SITTING UP TO THE SIDE OF THE BED WITHOUT PROBLEMS. ALERT AND ORIENTED X3. LUNG SOUNDS COARSE / WHEEZES THROUGHOUT. WORE THE BIPAP FOR SHORT AMOUNTS OF TIME THROUGHOUT THE DAY, ON OXYGEN 2-3L VIA NC, SATURATIONS 88-92% THE MAJORITY OF THE DAY. AFIB ON TELEMETRY RATE 90s-110s. 2+ PITTING EDEMA BILATERAL FLANKS, 3+ PITTING EDEMA TO BLE, 2+ PITTING EDEMA TO FEET, NON-PITTING EDEMA TO SCROTUM / PENIS. SCABS PRESENT SCATTERED ON ARMS AND LEGS. PT REMINDED OF FLUID RESTRICTION AND VERBALIZES UNDERSTANDING. WILL CONTINUE TO MONITOR.
[2018-04-24 04:26] LABS: Blood Urea Nitrogen 35 mg/dL (8-24); Bun/Creatinine Ratio 51.6 (12.0-20.0); Calcium, Blood 8.6 mg/dL (8.5-10.1); Chloride, Blood 84 mmol/L (98-108); Creatinine, Blood 0.68 mg/dL (0.60-1.20); Glomerular Filtration Rate >60 (60-); Glucose, Blood 154 mg/dL (70-99); Sodium, Blood 137 mmol/L (136-145)
[2018-04-24 04:38] LABS: Anion Gap Unable to Calculate mmol/L (6-16); CO2, Blood >45 mmol/L (21-32)
--- NOTE | 2018-04-24 05:30 | NUR ---
SHIFT SUMMARY PT ALERT AND ORIENTED AT TIMES T/O THE SHIFT. HE DID HAVE SOME CONFUSION AND DISORIENTATION AT TIMES WELL. PT REFUSED TO WEAR HIS BIPAP FOR BOTH RESPIRATORY THERAPIST AND NURSE. CHARGE NURSE DISCUSSED IMPORTANCE OF BIPAP ON NOC SHIFT YESTERDAY TO NO AVAIL. PT HAS NOT HAD ANY ACUTE CHANGES TO MENTATION OR LOC OVER LAST TWO NIGHTS. PT CONTINUES TO HAVE CO2 GREATER THAN 45. HIS VITALS HAVE BEEN STABLE T/O SHIFT. BP WAS ELEVATED THIS EVENING AT SHIFT CHANGE, BUT CAME DOWN WITH ADMINISTRATION OF NIGHTIME BP MEDS. PT WAS ABLE TO MAKE NEEDS KNOWN AND USED HIS CALL LIGHT APPROPRIATELY. HE DENIED ANY UNMET NEEDS. HE WAS ABLE TO STAND WITH ONE PERSON ASSIST. PT BED IS IN THE LOWEST POSITION, CALL LIGHT IN REACH AND 2X SIDE RAILS IN PLACE. HE USED HIS O2 VIA NC AND MAINTAINED 88-90 SATS FOR MAJORITY OF THE NIGHT. HE DID DIP DOWN WHEN HE TOOK OFF HIS O2. HE WAS ABLE TO BE REDIRECTED IN THESE SITUATIONS AND HIS O2 SAT RECOVERY WAS QUICK. PT ANDRES CONTINUE TO BE MONITORED UNTIL HANDOFF TO DAYSHIFT RN.
--- NOTE | 2018-04-24 11:15 | NUR ---
Called to room per pt's RN who is concerned with pt's increased respiratory effort/distress and his reluctance to use the bipap as recommended. RN had spoken to pt's brother on the phone for a status update also. Pt has expressed that he feels like he is dying to both his brother and his nurse. Brother is in support of pt making medical decisions for himself including changing his code status if he desires. Pt is currently a full code. Visit made to pt, who was pleasant and receptive to the visit and conversation. I explained the purpose of my visit, that he had expressed that he felt like he was dying and that we wanted to be certain we understood his wishes, goals of care and confirm his code status. I explained to him that he needed more respiratory support to keep his CO2 down and his O2 up than he had been allowing by declining the bipap use. I discussed CPR and intubation with him and his current full code orders. Pt states he still wants CPR and intubation if needed if "he's conscious". I told him there is no guarantee that he would remain conscious and it would be more likely that he would not be conscious due to possible sedation needed for intubation or and potential complications, aspiration with CPR. Pt's biox is reading 95% with O2 cannula placed in his mouth. His respiratory rate is 26-28 and he is gulping with breaths and using accessory muscles for breathing. His interactions are 100% appropriate and he appears alert and oriented at this time. He does not complain of nausea, or pain but does appear anxious. I discussed with him how his brain does not function well with low O2 or high CO2 levels. Pt remained very receptive but I could not convince him to put his bipap on at this time. "I'm fine for now". He was glad to hear that his brother was visiting tomorrow morning. I will leave VM for care managers and [facility] nurses working tomorrow to follow up for advanced care planning and education of pt for improved s/s management and realistic goals going forward.
--- NOTE | 2018-04-24 19:24 | NUR ---
SHIFT SUMMARY PT RESTING IN BED THROUGHOUT THE DAY. VSS, AFIB ON TELEMETRY RATE 90-110s. ALERT AND ORIENTED X3. LUNG SOUNDS COARSE WITH EXPIRATORY WHEEZES THROUGHOUT. PT HAVING PERIODS OF SEVERE DYSPNEA, APPEARS TO BE GASPING FOR AIR AT TIMES. PT PLACED ON BIPAP THROUGHOUT THE DAY, BUT AFTER 20-30 MINUTES HE PULLS IT OFF. PT WILL TAKE OXYGEN OUT OF HIS MOUTH AND / OR IT FALLS OUT WHILE HE IS SLEEPING, SATURATION ON ROOM AIR IS LOW TO MID 70s. OXYGEN PLACED BACK ON PT AND SATURATIONS BACK UP TO HIGH 80s-LOW 90s. PT INSTRUCTED TO KEEP OXYGEN ON, PT VERBALIZES UNDERSTANDING. 2-3+ PITTING EDEMA FROM FLANK TO FEET. TAN DRAINING CLEAR YELLOW URINE. PT VERBALIZES UNDERSTANDING OF FLUID RESTRICTION. WILL CONTINUE TO MONITOR.
--- NOTE | 2018-04-25 01:05 | NUR ---
[facility] ASSUMED CARE OF PT APPROX. 0700. PT A&OX4. ASSESSMENT COMPLETED. VITAL SIGNS STALE. OXYGEN SATS AT 93 WITH 3L OXGEN VIA NASAL CANULA. TAN REMAINS IN PLACE, PATENT AND DRAINING. PT IN BED AT THIS TIME. PT HAS EDEMA BLE, FLANK AND GROIN AREA NOTED IN ASSESSMENT. HEART RHYTM A. FIB IN 100'S AT THIS TIME. BED IN LOW POSITION, BED ALARM ON, CALL LIGHT IN REACH.
--- NOTE | 2018-04-25 05:13 | NUR ---
SHIFT SUMMARY PT PLEASANT, COOPERATIVE AND USES CALL LIGHT APPROPRIATELY. ASSESSMENT FINDINGS REMAIN UNCHANGED. VITALS SIGNS STABLE. PT SPENT A PORTION OF THE SHIFT WEARING BIPAP AND WHEN NOT ON BIPAP HAD 3-4L OXYGEN IN PLACE VIA NASAL CANULA WITH OXYGEN SATS IN 90'S. TAN REMAIN IN PLACE, PATENT AND DRAINING. BED IN LOW POSITION, BED ALARM ON, CALL LIGHT IN REACH AND PT DENIES ANY NEEDS AT THIS TIME. WILL CONTINUE TO MONITOR UNTIL HANDOFF TO DAYSHIFT RN.
--- NOTE | 2018-04-25 15:02 | NUR ---
PATIENT GAVE PERMISSION FOR SALES SUPPORT COORDINATOR TO GIVE CARE ON 04/25/18.
--- NOTE | 2018-04-25 17:29 | NUR ---
London admits he is lonely and likes the care and attention he gets while hospitalized. When asked why he is refusing PT, he tells me he is hoping to get a care-provider to be with him 28/09. I am uncertain this is realistic as he is basically homeless. He says he is not afriad of dying b/c he is "good with God." He believes in heaven. That said, he insists he wants to remain a Full code, and remains hopeful he can get better. Overall, London is non-uatsdin, but allowed me to pray for him at bedside. I will remain available.
--- NOTE | 2018-04-25 18:29 | NUR ---
SHIFT SUMMARY PT RESTING IN BED THROUGHOUT THE DAY. VSS. ALERT AND ORIENTED X3. C/O PAIN TO BILATERAL KNEES RATING FROM 4-10/10, MEDICATED WITH PRN PAIN MEDS, WHICH APPEARED TO HELP HIS PAIN. LUNG SOUNDS COARSE / WHEEZES THROUGHOUT. OXYGEN SATURATIONS LOW TO MID 90s ON 3L VIA NC. RESPIRATIONS ARE MORE RELAXED TODAY COMPARED TO YESTERDAY. TAN DRAINING YELLOW URINE. 2-3 + PITTING EDEMA NOTED FROM FLANK TO FEET. WILL CONTINUE TO MONITOR.
--- NOTE | 2018-04-26 02:52 | NUR ---
ASSUMED CARE AT 1930. DENIED PAIN THEN,. NOW C/O CLARKE AND BILAT KNEE PAIN. FENTENAL GIVEN W/ NO OTHER CHOICE AFTER TYLENOL TRIED. REPORTS A MIGRANE. ICE ON HEAD ASSISTS A LITTLE. O2 NC RANGE 2-3L. IN NARES AND IN MOUTH PT CHOOSES. ONE TIME TAPES AROUND FACE TO KEEP NC IN PLACE. WNL SAT READING. AF 100-[address] BIPAP AT 0115. 35% 23/10. A LITTLE RESTLESS IRRITATED BY PAIN ISSUES BUT GREAT EFFORT . GOOD COOPERATION. PULLS AT MASK A LOT BUT LEAVES ON. CONSTANTLY REQ TO HAVE FOOD BEFORE BIPAP PLACED. NO SKIN BREAK DOWN NOTED .ENC TO TURN TO SIDE AND STAY ON SIDE FOR POSITION CHANGE. FAIR RESULTS AND COOPERATION.
[2018-04-26 04:37] LABS: Anion Gap Unable to Calculate mmol/L (6-16); Blood Urea Nitrogen 35 mg/dL (8-24); Bun/Creatinine Ratio 35.3 (12.0-20.0); CO2, Blood >45 mmol/L (21-32); Calcium, Blood 8.3 mg/dL (8.5-10.1); Chloride, Blood 89 mmol/L (98-108); Creatinine, Blood 0.99 mg/dL (0.60-1.20); Glomerular Filtration Rate >60 (60-); Glucose, Blood 100 mg/dL (70-99); Potassium, Blood 3.9 mmol/L (3.5-5.5); Sodium, Blood 139 mmol/L (136-145)
--- NOTE | 2018-04-26 06:34 | NUR ---
SHIFT SUMMARY. BIPAP WORN ABOUT 4- 5 HR ON AND OFF. TONIGHT. WHEN CALM AND RELAXED AND DOZING NC IN MOUTH CAN BE AT 2L . CONT TO SNACK ALL THE TIME. ENC TO MOVE ABOUT IN BED MORE. HR STILL 100-120 AF. BP WNL
--- NOTE | 2018-04-26 12:53 | NUR ---
While sleeping and wearing oxygen at 2 l/min, spo2 dropped to 82%. The pt was awakened by me and was open to the recommendation to wear his bipap while sleeping. Bipap was placed on and spo2 recoverd to 90% while he fell back asleep. [facility] cisco administrator Vita is here talking with the patient now.
--- NOTE | 2018-04-26 14:27 | NUR ---
Spiritual care visit conducted. Patient is known to this movie writer. Patient shared with me that he had a very difficult night with high levels of pain (which did eventually get resolved). Patient stated that he was doing well emotionally dispite the physical struggles that he faces. I listened empathically, provided inspirational quotes from the Bible and provided prayer. Patient responded well and thanked me for the prayer.
[2018-04-27 04:09] LABS: BASOPHILS ABSOLUTE AUTO 0.03 K/mm3 (0.00-0.23); BASOPHILS PERCENT AUTO 0 % (0-2); EOSINOPHILS ABSOLUTE AUTO 0.03 K/mm3 (0.00-0.68); EOSINOPHILS PERCENT AUTO 0 % (0-6); Hematocrit 35.8 % (37.0-53.0); Hemoglobin 9.9 g/dL (13.5-17.5); IMMATURE GRAN ABSOLUTE AUTO 0.11 K/mm3 (0.00-0.10); IMMATURE GRAN PERCENT AUTO 1 % (0-1); LYMPHOCYTES ABSOLUTE AUTO 1.86 K/mm3 (0.84-5.20); LYMPHOCYTES PERCENT AUTO 18 % (21-46); MONOCYTES ABSOLUTE AUTO 1.21 K/mm3 (0.16-1.47); MONOCYTES PERCENT AUTO 12 % (4-13); Mean Corpuscular HGB Conc 27.7 g/dL (31.5-36.5); Mean Platelet Volume 10.6 fL (9.1-12.4); NEUTROPHILS ABSOLUTE AUTO 6.87 K/mm3 (1.96-9.15); NEUTROPHILS PERCENT AUTO 68 % (41-73); Platelet Count 265 K/mm3 (150-400); RDW Coefficient Variation 17.2 % (11.7-14.2); RDW Standard Deviation 62.6 fL (35.1-46.3); Red Blood Cell Count 3.66 M/mm3 (4.30-5.90); White Blood Cell Count 10.11 K/mm3 (4.00-11.30)
--- NOTE | 2018-04-27 04:12 | NUR ---
PCU NOC SHIFT SUMMARY PATIENT ALERT AND ORIENTED AT TIMES TO LOCATION AND SITUATION - ORIENTED TO SELF AND . PATIENT NON-COMPLIANT WITH BIPAP; ONLY USING FOR SHORT PERIODS OF TIMES BEFORE TAKING IT OFF. PATIENT WEARS 2-3 LPM NC AT TIMES BUT ALSO IS NON-COMPLIANT AND TAKES OFF OFTEN - PATIENT DESATURATES DOWN TO 79% WITHOUT OXYGEN OR BIPAP IN PLACE; PATIENT EDUCATED MULTIPLE TIMES T/O SHIFT. PATIENT HAS GOOD URINARY OUTPUT AND HAD BM THIS SHIFT. PATIENT HAD MCLAIN APPETITE T/O SHIFT. NO ACUTE CHANGES NOTED. HR REMAIN AFIB IN THE 90'S. VSS. WILL CONTINUE TO MONITOR AND GIVE REPORT TO DAYSHIFT RN.
[2018-04-27 04:21] LABS: Mean Corpuscular Volume 98 fL (80-100)
[2018-04-27 04:36] LABS: Alanine Aminotransfer (ALT/SGP 42 U/L (12-78); Albumin, Blood 2.8 g/dL (3.4-5.0); Albumin/Globulin Ratio 0.9 (0.8-1.8); Alk Phos 47 U/L (50-136); Anion Gap 1 mmol/L (6-16); Aspartate Aminotrans (AST/SGOT 35 U/L (12-37); Bilirubin, Total 0.4 mg/dL (0.1-1.0); Blood Urea Nitrogen 33 mg/dL (8-24); Bun/Creatinine Ratio 35.8 (12.0-20.0); CO2, Blood 45 mmol/L (21-32); Calcium, Blood 8.1 mg/dL (8.5-10.1); Chloride, Blood 91 mmol/L (98-108); Creatinine, Blood 0.92 mg/dL (0.60-1.20); Globulin, Blood 3.2 g/dL (2.2-4.0); Glomerular Filtration Rate >60 (60-); Glucose, Blood 123 mg/dL (70-99); Magnesium, Blood 2.4 mg/dL (1.6-2.4); Potassium, Blood 4.8 mmol/L (3.5-5.5); Sodium, Blood 137 mmol/L (136-145)
--- NOTE | 2018-04-27 08:40 | NUR ---
ASSUMED CARE: REPORT RECEIVED FROM RIC Steel RN. ASSUMED CARE OF THIS PT AT APPROX 0700. ON ASSESSMENT, THE PT IS RESTING QUIETLY. HE AWAKENS PERIODICALLY TO REQUEST PAIN MEDS FOR ACUTE PAIN TO L KNEE. LIDOCAINE PATCH ORDERED & MEDS PER EMAR. HE IS CURRENTLY USING 3L VIA NC PLACED IN MOUTH, PT HAS OCCASIONALLY BEEN "LOSING" THE NC & DESATS TO APPROX 78% DURING THAT TIME. HE RECOVERS QUICKLY W/ CANNULA BACK IN PLACE. IT IS DISCUSSED W/ THE PT THAT WE WILL ADDRESS PAIN MED REQUEST W/ PROVIDER, DR. MAXWELL, WHEN SHE ROUNDS THIS AM. WILL CONTINUE TO MONITOR & UPDATE NEEDED.
--- NOTE | 2018-04-27 09:30 | NUR ---
DR. MAXWELL: PROVIDER AT BEDSIDE THIS AM. PT HAS REQUESTS FOR INCREASED/DIFFERENT PAIN MEDS FOR ACUTE L KNEE PAIN. ORDERS HAVE BEEN PLACED FOR ONE TIME DOSE OF TORADOL. WILL CONTINUE TO MONITOR & UPDATE NEEDED.
--- NOTE | 2018-04-27 15:25 | NUR ---
ASSUMED CARE OF PT.
--- NOTE | 2018-04-27 18:46 | NUR ---
SHIFT SUMMARY PT ALERT AND ORIENTED. VS STABLE. O2 SATS HAVE REMAINED ABOVE 90% ON 3L VIA NC AT REST, BUT PT DESATURATES WITH MINIMAL ACITIVITY. PT DENIES ANY PAIN DURING MY CARE. PT REFUSES TO GET UP OOB FOR DINNER. PT NEEDS ENCOURAGEMENT TO COMPLETE ADL'S INDEPENDENTLY. NO OTHER CHANGES SINCE INITIAL ASSESSMENT. WILL CONTINUE TO MONITOR AND REPORT TO ONCOMING RN. CALL LIGHT IN REACH.
--- NOTE | 2018-04-27 22:00 | NUR ---
ASSUMED CARE OF PATIENT AT APPROXIMATELY 1900 FROM FAIZAN Gonzalez RN. PATIENT ALERT AND ORIENTED X4; WEAKNESS NOTED; SBA W/ FWW TO BEDSIDE COMMODE. PATIENT DENIES PAIN, NUMBNESS, TINGLING, DIZZINESS AND NAUSEA. PATIENT REQUESTS FREQUENT SNACKS; 1.2L FLUID RESTRICTION PER DAY. AFIB ON TELE; RATE 90-100'S; OXYEGN SATURATION ABOVE 90% ON 3LPM VIA NC. PATIENT HAS TO BE REMINDED FREQUENTLY TO WEAR OXYGEN; DESATURATES TO HIGH 70'S WHEN EATING; RECOVERS QUICKLY; NC IN MOUTH MOST OF TIME. PATIENT WORE BIPAP FOR APPROXIMATELY 1 HOUR TONIGHT. PATIENT CAN BE INAPPROPRIATE AT TIMES. PATIENT HAS LARGE BM. PICC S/L. PATIENT CURRENTLY SLEEPING IN BED; CALL LIGHT IN REACH; BED IN LOWEST POSISTION; BED ALARM ON; WILL CONTINUE TO MONITOR AND ASSESS UNTIL END OF SHIFT.
[2018-04-28 04:14] LABS: BASOPHILS ABSOLUTE AUTO 0.02 K/mm3 (0.00-0.23); BASOPHILS PERCENT AUTO 0 % (0-2); EOSINOPHILS ABSOLUTE AUTO 0.06 K/mm3 (0.00-0.68); EOSINOPHILS PERCENT AUTO 1 % (0-6); Hematocrit 36.1 % (37.0-53.0); Hemoglobin 10.1 g/dL (13.5-17.5); IMMATURE GRAN ABSOLUTE AUTO 0.18 K/mm3 (0.00-0.10); IMMATURE GRAN PERCENT AUTO 2 % (0-1); LYMPHOCYTES ABSOLUTE AUTO 2.11 K/mm3 (0.84-5.20); LYMPHOCYTES PERCENT AUTO 19 % (21-46); MONOCYTES ABSOLUTE AUTO 1.41 K/mm3 (0.16-1.47); MONOCYTES PERCENT AUTO 13 % (4-13); Mean Corpuscular HGB 27.5 pg (26.0-34.0); Mean Corpuscular Volume 98 fL (80-100); Mean Platelet Volume 9.9 fL (9.1-12.4); NEUTROPHILS ABSOLUTE AUTO 7.17 K/mm3 (1.96-9.15); NEUTROPHILS PERCENT AUTO 66 % (41-73); NRBC ABSOLUTE 0.02 K/mm3 (0.00-0.02); NRBC Auto 0.2 /100 WBC (0.0-0.2); Platelet Count 267 K/mm3 (150-400); RDW Coefficient Variation 17.1 % (11.7-14.2); RDW Standard Deviation 62.6 fL (35.1-46.3); Red Blood Cell Count 3.67 M/mm3 (4.30-5.90); White Blood Cell Count 10.95 K/mm3 (4.00-11.30)
[2018-04-28 04:32] LABS: Anion Gap 2 mmol/L (6-16); Blood Urea Nitrogen 45 mg/dL (8-24); Bun/Creatinine Ratio 42.1 (12.0-20.0); CO2, Blood 43 mmol/L (21-32); Calcium, Blood 8.4 mg/dL (8.5-10.1); Chloride, Blood 93 mmol/L (98-108); Creatinine, Blood 1.07 mg/dL (0.60-1.20); Glomerular Filtration Rate >60 (60-); Glucose, Blood 117 mg/dL (70-99); Potassium, Blood 4.2 mmol/L (3.5-5.5); Sodium, Blood 138 mmol/L (136-145)
--- NOTE | 2018-04-28 09:10 | NUR ---
ASSUMED CARE: REPORT RECEIVED FROM YADIRA Chu RN. ASSUMED CARE OF THIS PT AT APPROX 0700. ROUNDING COMPLETE, THE PT IS SOMNOLENT AT THAT TIME. HE AWAKENS BRIEFLY TO VERBAL & PHYSICAL STIMULI BUT IS NOT ANSWERING QUESTIONS APPROPRIATELY & SPEECH IS GARBLED. THE PT RECEIVED ATIVAN LAST NIGHT, PER EMAR. ALL PO MEDS HAVE BEEN HELD THIS AM R/T SOMNOLENCE & ASPIRATION RISK. O2 SATS > 90% ON 3L NC PLACED IN MOUTH. WILL CONTINUE TO MONITOR & UPDATE NEEDED.
--- NOTE | 2018-04-28 09:30 | NUR ---
DR. MAXWELL: PROVIDER IN ROOM TO SEE PT. HE DOES NOT AWAKEN EXCEPT BRIEFLY DURING THIS TIME. ORDERS HAVE BEEN PLACED & ATIVAN D/C'd R/T PTs SOMNOLENCE. WILL CONTINUE TO MONITOR & UPDATE NEEDED.
--- NOTE | 2018-04-28 10:49 | NUR ---
Pt visit this AM. Spoke with Dr Sheffield and she reports Pt is appropriate for comfort care and hospice and would like palliative care to discuss this with Pt. Pt sitting on the edge of the bed upon arrival. He is A&O x2 and appears dyspneic. Pt has oxygen via NC and is placed in his mouth. Discussed prognosis with Pt and he did not appear to understand prognosis as evidenced by fidgeting with his urinal and saying that he is going to buy a care and travel with his brother. Most of the responses were 2 word sentences that were difficult to understand. Spoke with Pt's nurse Eli and reported to her concerns of Pt appropriateness to make health care decisions. Collaborated with Kalyani (Palliative Care) and she will make a Pt visit. Called and spoke with case packer and sealer Sheree Palacio and descussed Pt's appropriateness. NOK unwilling to make decisions for Pt. Sheree will discuss case with Pt's APD worker. Will remain available
--- NOTE | 2018-04-28 14:16 | NUR ---
ASSUMED CARE OF PT AT APPROXIMATELY 1400.
--- NOTE | 2018-04-28 16:18 | NUR ---
APS in to see patient. observed part of interview. pt answered in minimal answeres and struggled. pulled off oxygen. Review of pt with APS staff. they have not met him before. Reviewed trajectory of his past visits and care and his struggles. Juvencio reviewed his issues with oxygenation.
--- NOTE | 2018-04-28 17:45 | NUR ---
SHIFT SUMMARY PT ALERT AND ORIENTED WITH MILD CONFUSION THIS SHIFT. SPEECH IS GARBLED. PT TAKING OFF O2 CONSTANTLY AND DESATURATING TO THE 70'S. PT TAKES A COUPLE MINUTES TO RECOVER. PT REFUSES BIPAP. PT UP TO CHAIR FOR MEALS. NO OTHER CHANGES SINCE INITIAL ASSESSMENT. WILL CONTINUE TO MONITOR AND REPORT TO ONCOMING RN. CALL LIGHT IN REACH. PT SITTING UP EATING DINNER.
--- NOTE | 2018-04-29 03:00 | NUR ---
ASSUMED CARE OF PATIENT AT APPROXIMATELY 1900 FROM FAIZAN Gonzalez RN. PATIENT ALERT AND ORIENTED X2; WEAKNESS NOTED; SBA W/ FWW TO BEDSIDE COMMODE. PATIENT DENIES PAIN, NUMBNESS, TINGLING, DIZZINESS AND NAUSEA. PATIENT REQUESTS FREQUENT SNACKS; 1.2L FLUID RESTRICTION PER DAY. AFIB ON TELE; RATE 90-100'S; OXYEGN SATURATION ABOVE 90% ON 3LPM VIA NC; PATIENT WEARS NC IN MOUTH; FREQUENTLY TAKES OXYGEN OUT; REFUSES BIPAP; WORE FOR LESS THAN 15 MINTUES THIS SHIFT; REPORTS BIPAP "TOO LOUD"; REFUSED EARPLUGS; PATIENT HAS TO BE REMINDED FREQUENTLY TO WEAR OXYGEN; DESATURATES TO LOW 70'S WHEN EATING; RECOVERS WITHIN A MINUTE; PATIENT CAN BE INAPPROPRIATE AT TIMES. PG S/L. PATIENT CALLED TO REPORT HE WAS HAVING A "PANIC ATTACK"; AGITATED; MEDICATE PER EMAR. PATIENT CURRENTLY RESTING IN BED; CALL LIGHT IN REACH; BED IN LOWEST POSISTION; BED ALARM ON; WILL CONTINUE TO MONITOR AND ASSESS UNTIL END OF SHIFT.
[2018-04-29 04:55] LABS: Blood Urea Nitrogen 35 mg/dL (8-24); Bun/Creatinine Ratio 42.7 (12.0-20.0); Calcium, Blood 8.1 mg/dL (8.5-10.1); Chloride, Blood 94 mmol/L (98-108); Creatinine, Blood 0.82 mg/dL (0.60-1.20); Glomerular Filtration Rate >60 (60-); Glucose, Blood 146 mg/dL (70-99); Sodium, Blood 139 mmol/L (136-145)
--- NOTE | 2018-04-29 05:40 | NUR ---
PATIENT ANXIOUS AND AGITATED; SITTING UP AND LAYING BACK DOWN IN BED REPEATEDLY; REMOVING OXYGEN TUBING FROM MOUTH EVERY 2-20 MINTUES. PATIENT OXYGEN SATURATION DROPS TO 69% TO LOW 70'S; PATIENT TAKES A FEW MINTUES TO RECOVER AFTER A RN HAS TO REPLACE OXYGEN EVERY 2-20 MIMUTES; PATIENT REFUSES TO WEAR OXYGEN TUBING IN NOSE. PATIENT ALSO REMOVING PULSE OXIMETRY SENSOR FROM FINGER THREE TIMES TONIGHT. PATIENT HAS SLEPT ABOUT TWO HOURS. BIPAP PLACED AT APPROXIMATELY 0530; THIS RN STAYING IN ROOM WITH PATIENT.
[2018-04-29 05:45] LABS: Anion Gap 1 mmol/L (6-16); CO2, Blood 44 mmol/L (21-32)
--- NOTE | 2018-04-29 08:17 | NUR ---
0700 BEDSIDE REPORT. The pt moved from lying down to sitting on the side of the bed while I received bedside report from noc shift RN Eloise Webb. I asked if the pt needed bed alarm on, and was told no with the reason being that he had not been attempting any OOB independently, and had been cooperative to verbal instructions and had been using his call light for needs. Bed alarm noted off at that time. The pt was responding to reminders to replace his oxygen, and was assisted back to lying down position to wear his bipap. 0810 Alerted by TRANSFORMATION ANALYST that the pt had been found "crawling around on the floor", not wearing his oxygen. The pt was assisted to a recliner chair in the upright position, oxygen reapplied by the TRANSFORMATION ANALYST mae Mccrary and acting cafe associateVINOD Prado. Vital signs taken. He is now sitting up in the chair, eating breakfast. Heart rate 111bpm, and spo2 89% while on 4 l/min n.c. while eating. Denies any pain at this time.
--- NOTE | 2018-04-29 13:49 | NUR ---
[place] appears exhausted today. Appetite good, and up into chair for meals, and toileting, but requiring at least 4 l/min of oxygen and sleeping often. Strongly encouraging use of the bipap while he is sleeping, which he is now accepting. This morning he was often removing the oxgyen and /or bipap mask, during periods of forgetfullness or confusion. He has twice pulled the pulse oxymetry probe apart into pieces. At this time after having a BM on the [facility] he is resting in the recliner, legs elevated as they are swollen. He is wearing the bipap.
--- NOTE | 2018-04-29 17:46 | NUR ---
Multiple visits today to reassess pt to see how he is trending. He at times can track parts of conversation but remains confussed in his speech. called [facility] was able to get his emergency contact information for stephani maddox his friend. Her number was disconnected. pt up for dinner sats up to 93 % was able to get him to show me his phone numbers. He stated stephani and his brother Hiram speak all the time and they have not been able to come visit. Jay number was in pt phone under Tod. spoke with brother Hiram. his number is [phone]. sent update to admitting to change face sheet, wrote number on board and chart updated nurse and charge. Spoke with hiram about pt inability to make decisions. Advised Hiram that he will need to assist his brother it is time. Advised him about comfort care and hospice. Advied pt brother to keep his phone close by in case any changes. Hiram stated he will find a way to get into hospital tomorrow. Advised that if he cant make it He and Stephani will need to speak with us by phone for plan of care.
--- NOTE | 2018-04-29 18:12 | NUR ---
[place] has been up to the chair, Bedside commode, and back and forth from the bed to chair multiple times today. Frequently takes his oxygen off. Has not been able to tolerate the bipap mask today for any longer than 15 minutes. Hypoxia readily and quickly evident following patient discontinuation of oxygen delivery. When reminded, he complies with putting the oxygen off. Mentation is forgetful and occasionally confused. Cooperative and conversant throughout the day. No complaints of pain. Bed alarm/chair alarm in use from 0810 until end of shift today, and pt uses walker for transfers/activity.
--- NOTE | 2018-04-30 06:36 | NUR ---
SHIFT SUMMARY PATIENT HAS BEEN VERY NONCOMPLIENT WITH OXYGEN USE AND HAS USED THE BIPAP FOR APPROX 20-30 MINUTES BEFORE REFUSING IT FOR THE REST OF THE NIGHT. PATIENT FRQUENTLY REMOVING O2 TUBING CAUSING HIMSELF TO DESTATE QUICKLY INTO THE 70'S. PATIENT'S O2 REPLACED BY STAFF EACH TIME AND PATIENT EDUCATED ON IMPORTANCE OF WEARING O2 AND USING BIPAP. HOWEVER, PATIENT CONTINUES TO BE VERY UNCOOPERATIVE WITH WEARING HIS OXYGEN AND USING THE BIPAP. PATIENT CAN TAKE SEVERAL MINUTES TO RECOVER AFTER ACTIVITIES AND AFTER HE REMOVES HIS O2 TUBING. PATIENT GIVEN MEDICATION FOR AGITATION PER EMAR. PATIENT AWAKE MOST OF THE NIGHT BUT HAS TAKEN SEVERAL VERY SHORT NAPS IN THE LAST FEW HOURS AND CONTINUES TO REFUSE THE BIPAP. RESPIRTORY THERPAY IN TO ASSESS PATIENT AND PATIENT'S OXYGEN NEEDS OFTEN THROUGHOUT THE NIGHT. WILL CONTINUE TO MONITOR PATIENT AND REPORT TO ONCOMING RN.
[2018-04-30 13:20] LABS: PCO2 Arterial 93.2 mmHg (35-45); PO2 Arterial 54.3 mmHg (80-100); pH Blood Arterial 7.31 (7.35-7.45)
--- NOTE | 2018-04-30 13:28 | NUR ---
Pt found very lethargic in the recliner chair, unable to fully awaken, picking at the air, not cooperating with care. Lift used to move pt to the bed,a lamar Gallardo was called. Restraint orders received. Palliative care and Dr. Gallardo at the bedside.
--- NOTE | 2018-04-30 14:16 | NUR ---
This mornng the pt was mildly confused, occasionally pulling off his oxygen, pulse oxymetry probe, but able to cooperate at times with care such as using the urinal, getting up to the chair for meal, and taking medications by mouth. This afternoon at 1330 the pt was in his chair, lethargic, wearing oxygen at 4 l/min and very difficult to arouse. He would not keep his eyes open, wouldn't speak except mumbling incoherently, and agitated and uncooperative with attempts to take his vital signs. Required 3 staff to get him from the recliner chair to the bed using the ceiling lift. Dr. Gallardo was called, and palliative care. ABG was obtained and pt's family was contacted by telephone. New orders were received. At this time the patient is on comfort care, has been given roxinol and is resting with eyes closed while in high cruz's position, wearing his oxygen for comfort at 2 l/min. He is also in a bhanu vest restraint and bilateral arm restraints to keep him from falling out of the bed or attempting to exit without assistance.
--- NOTE | 2018-04-30 15:20 | NUR ---
The pt is confused. Noticeable air hunger, agitation, and suspicion of staff. He does not want his oxygen on, and refused medication for pain, air hunger, or anxiety. I asked him frequently regarding the needs. He does look very uncomfortable, with air hunger. Attempted to give him oral roxinol, which he was agreeable to at one point, but then he took the syringe and said that staff needed to get away, and he would take it. He began to lift his arm threateningly and telling staff to leave. He dropped the roxinol on the floor eventually. Now stating that he does want medication for pain at this time.
--- NOTE | 2018-04-30 15:45 | NUR ---
UPDATE: Pt able to state that he is in pain and states that he wants something. Pt appears to have a lot of air hunger at this time. Medicated with 10 of Roxinal. Pt tolerated well and appeared to become much more comfortable after taking it. Pt smiled and appologized for "putting you through that." Pt still very confused, but now asking for more pain medicaion. Will treat per orders.
--- NOTE | 2018-04-30 15:48 | NUR ---
pt aggitation and air hunger worsening today. pt brother was in this morning he left before reviewing care plan. Called family because pt becoming combative and struggling. stat call to family. spoke with his freind and sister inlaw his brother was at store. They state they have discussed that its tme and they know he can't make decisions and he is failing. After speaking with Dr Gallardo who gave them a detatiled understaing of his prognosis and his sufering from respiritory stress they agreed to comfort care. pt progressing but much more comfortable from prn meds for comfort. He is wanting to take oxygen off and make sure his brother gets some money from bank. Called family again. Spoke with Hiram his brother and sister in law. The understand about oxygen coming off, they are understaning that he has refused a fought and now it is time for comfort and end of life care. pt positioned for comfort and review of care with nursing.
--- NOTE | 2018-04-30 16:05 | NUR ---
UPDATE: REPORT GIVEN TO VINOD LEIGH. Care transfered. Will medicate Pt per orders for air hunger, pain and agitation.
--- NOTE | 2018-04-30 18:55 | NUR ---
UPDATE: PT APPEARS TO BE HAVING AIR HUNGER AND AGGITATION. Medications were pulled to give to pt but Pt refusing at this time.
--- NOTE | 2018-04-30 18:57 | NUR ---
UPDATE: Pt appears to have air hunger but refusing roxinal. Medicated with iv morphine. Pt appears to be more comfortable after IV morphine. Report being given to Night RN.
--- NOTE | 2018-04-30 19:23 | NUR ---
SHIFT SUMMARY: Pt became very aggitated 2 times today, taking off his oxygen and refusing to put it back on. At those times pt also became aggressive toward staff members. The 2nd time, at around 1400, Pt was placed in soft restraints, oxygen was applied and ABG was drawn. Pt's brother was called and pt was changed to Comfort care status. Pt was taken out of soft wrist restraints but bozena vest was left on. Pt left oxygen on for a while but then removed it again at around 1500 and refused again to put it back on. Stated "I'll just set it right here and put it on if I need it." Since that time Pt has refused oxygen to be placed. Pt also stated at around 1530 to "call my brother and tell him I'm dieing and to take out money from the back". Pt's brother was called and he did come in to see Pt this afternoon. At end of shift pt is still in Boezna vest since he is still attempting to climb out of bed at times. Has been given IV morphine for appearance of air hunger since pt is refusing all PO medications at this time. He is disoriented and paranoid at times and still aggressive to staff at times. Report was given to night RN. Pt will be kept comfortable per comfort care orders.
--- NOTE | 2018-04-30 19:30 | NUR ---
ASSUMED CARE REPORT RECEIVED FROM DAY SHIFT RN, DURING REPORT PATIENT DID ATTEMPT TO CLIMB OUT OF BED AND HE SET OFF BED ALARM. PATIENT CENTERED BACK IN BED AND [facility] RESTRAINT CHECKED AND ASSESSED. PATIENT MEDICATED FOR AIR HUNGER BY DAY SHIFT RN. AT THIS TIME PATIENT APPEARES TO BE RESTING COMFORTABLY AND IS RELAXED IN THE CENTER OF THE BED. CALL LIGHT WITHIN REACH. WILL CONEINUE TO MONITOR.
--- NOTE | 2018-04-30 20:45 | NUR ---
UPDATE AT APPROX 2002 RN ENTERED ROOM TO FIND PATIENT WITH NO PALPABLE PULSES, WITH NO AUDIBLE HEARTBEAT, AND NOT BREATHING. PATIENT FOUND LAYING IN A RELAXED POSITION IN CENTER OF THE BED. [facility] VEST IN PLACE AND TIED APPROPRIATELY, SLACK NOTED IN [facility] LINES. [facility] NOT BUNCHED AROUND PATIENT'S NECK IN ANYWAY. CHARGE NURSE NOTIFIED. PATIENT'S BROTHER NOTIFIED AT APPROX 2019. DR ELKINS NOTIFIED AT APPROX 2037. POSTMORTEM CARE PROVIDED.
--- NOTE | 2018-04-30 22:50 | NUR ---
UPDATE BROTHER ARRIVED TO SEE PATIENT. STATED THAT [facility] WAS THE CHOSEN MORTUARY. PATIENT'S BROTHER STAYED FOR A SHORT PERIOD OF TIME. WHEN PATIENT'S BROTHER LEFT HE TOOK ALL OF PATIENT'S BELONINGS WITH HIM.
--- NOTE | 2018-05-01 00:02 | NUR ---
UPDATE COMMERCIAL ESCROW OFFICER FROM [facility] ARRIVED TO RETRIEVE PATIENT AT THIS TIME.
== END 2018-05-01 | DRG 871 ==
LOC: ER 17:03 → PCU 19:46 → EDBEDREQTM 20:15 → EDBEDREQ 20:15 → PCU 21:40
PROVIDERS: Emergency Medicine; Family Medicine; Hospitalist; Internal Medicine; ADMIT Internal Medicine
DX: A41.9 Sepsis, unspecified organism (principal); J18.9 Pneumonia, unspecified organism; J96.22 Acute and chronic respiratory failure with hypercapnia; J96.21 Acute and chronic respiratory failure with hypoxia; I50.33 Acute on chronic diastolic (congestive) heart failure; Z66 Do not resuscitate; Z51.5 Encounter for palliative care; E87.1 Hypo-osmolality and hyponatremia; J44.0 Chronic obstructive pulmonary disease with (acute) lower respiratory infection; J44.1 Chronic obstructive pulmonary disease with (acute) exacerbation; R65.20 Severe sepsis without septic shock; I11.0 Hypertensive heart disease with heart failure; I48.91 Unspecified atrial fibrillation; F43.10 Post-traumatic stress disorder, unspecified; F41.9 Anxiety disorder, unspecified; F32.9 Major depressive disorder, single episode, unspecified; F10.20 Alcohol dependence, uncomplicated; F17.200 Nicotine dependence, unspecified, uncomplicated; E66.9 Obesity, unspecified; Z68.32 Body mass index [BMI] 32.0-32.9, adult; Z79.899 Other long term (current) drug therapy
CPT/HCPCS: 36415; 36600; 51702; 71045; 80048; 80053; 80162; 82803; 83605; 83735; 83880; 84100; 84145; 85025; 85027; 87040; 87486; 87581; 87633; 87798; 93005; 93010; 94640; 94644; 94660; 94762; 96361; 96365; 96367; 96375; 97110; 97163; 97165; 97530; 97535; 99285-25; G0480; J0456; J0696; J1120; J1650; J1885; J1940; J2060; J2270; J2543; J2930; J3010; J3370; J7030; J7050